=== PATIENT | female | born 1950 | race Caucasian/White ===

== ENCOUNTER 2021-07-12 13:24 | Inpatient (IN) | payer MEDICARE ==
[~2021-07-12] VITALS: Ht 167.6 cm; Wt 67.1 kg
--- NOTE | 2021-07-12 13:54 | NUR ---
[place], from [facility], sent by PMD due to PNA and 02 desaturation 93% on room air. PT AAOX3. RR EVEN & UNLABORED. PT SEEN & EVAL'D BY DR. ZUÑIGA. PLACED ON ENGRAVER BLOCK. SR. PLACED ON 2L, O2 SAT 99%. WILL CONT TO MONITOR.
[2021-07-12 13:55] LABS: BASOPHILS # (AUTO) 0.1 K/uL (0.0-0.2); BASOPHILS % (AUTO) 0.9 % (0.0-2.0); EOSINOPHILS % (AUTO) 0.4 % (0.0-6.0); HEMATOCRIT 41 % (33-45); HEMOGLOBIN 13.6 g/dL (11.5-14.8); LYMPHOCYTES % (AUTO) 13.2 % (20.0-44.0); MEAN CORPUSCULAR HGB CONC 33 g/dl (31.0-36.0); MEAN CORPUSCULAR VOLUME 95 fL (82-100); MONOCYTES % (AUTO) 13.1 % (2.0-12.0); NEUTROPHILS # (AUTO) 5.7 K/uL (1.8-8.9); NEUTROPHILS % (AUTO) 72.4 % (43.0-81.0); PLATELET COUNT (AUTO) 256 K/uL (150-450); RED BLOOD CELL COUNT(AUTO) 4.35 MIL/uL (4.0-5.2); WHITE BLOOD COUNT (AUTO) 7.9 K/uL (4.3-11.0)
--- NOTE | 2021-07-12 14:00 | NUR ---
MOVE SHEET SUBMITTED.
[2021-07-12 14:02] LABS: CALCIUM, SERUM 8.9 mg/dL (8.5-10.1); CREATININE 0.4 mg/dL (0.6-1.3); POTASSIUM 4.8 mmol/L (3.5-5.1)
[2021-07-12 14:15] LABS: ALBUMIN 2.9 g/dL (3.4-5.0); BILIRUBIN,DIRECT 0.1 mg/dL (0.0-0.2); BILIRUBIN,TOTAL 0.5 mg/dL (0.2-1.0); TOTAL PROTEIN, SERUM 6.1 g/dL (6.4-8.2)
[2021-07-12] MEDS ORDERED: CEFEPIME 1 GM in IV D5W 50 ML IV ONE (15:00)
[2021-07-12] MEDS ORDERED: VANCOMYCIN 1 GM in IV D5W 250 ML IV ONE (15:00)
--- NOTE | 2021-07-12 15:13 | NUR ---
[facility] CALLED ANAESTHESIOLOGIST PAGED.
[2021-07-12 15:31] LABS: BILIRUBIN,URINE Negative (NEGATIVE); COLOR,URINE YELLOW (YELLOW); LEUKOCYTE ESTERASE ,URINE Large (NEGATIVE); NITRITE, URINE Positive (NEGATIVE); PROTEIN,URINE Trace mg/dl (NEGATIVE); UGLUCOSE Negative (NEGATIVE)
--- NOTE | 2021-07-12 15:33 | NUR ---
room 110
--- NOTE | 2021-07-12 16:26 | NUR ---
PT EYES CLOSED BUT EASILY AWAKEN WITH VERBAL STIMULI. DENIES CP, SOB, DIZZINESS, N/V, ABD PAIN OR ANY OTHER DISCOMFORT AT THIS TIME. ON TELE, SR. WILL CONT TO MONITOR.
[2021-07-12] MEDS ORDERED: IV NS 0.9% 1,000 ML IV ONE (17:00)
[2021-07-12 17:03] LABS: BACTERIA,URINE 4+ /HPF (None Seen); RBC,URINE 21-50 /HPF (0-2); SQUAMOUS EPITHELIAL CELL,UR 0-2 /HPF (None Seen); WBC,URINE 81-100 /HPF (0-3)
--- NOTE | 2021-07-12 17:40 | NUR ---
REPORT GIVEN TO DANA CM FOR REED.
[2021-07-12] MEDS ORDERED: ONDANSETRON HCL/PF 4 MG/2 ML VIAL IVP PRN (18:00)
[2021-07-12] MEDS ORDERED: ACETAMINOPHEN 325 MG TABLET PO PRN (18:00)
[2021-07-12] MEDS ORDERED: IV NS 0.9% 1,000 ML IV PRN (18:00)
[2021-07-12] MEDS ORDERED: IPRATROPIUM NEB FS 0.5 MG/2.5 ML AMPUL.NEB IH PRN (19:00)
[2021-07-12 19:01] VITALS: BP 130/70
--- NOTE | 2021-07-12 19:43 | NUR ---
RN CLOSING NOTE PATIENT IN BED, AWAKE, EATING DINER. RECEIVED ON THE FLOOR FROM THE ER AT 181. PATIENT ON 2L O2 NC WITH NO SIGNS OF LABORED BREATHING AT THIS TIME. L WRIST IV IN PLACE AND RUNNING NS. BED LOCKED AND IN LOWEST POSITION, 3 SIDE RAILS UP, CALL LIGHT WITHIN REACH. WILL ENDORSE TO CHIEF OF FIELD OPERATIONS NURSE
--- NOTE | 2021-07-12 19:50 | NUR ---
RN NOTE RECEIVED PATIENT IN BED ALERT AND ORIENTED X4, ABLE TO MAKE NEEDS KNOWN. ON O2 2L VIA NASAL CANNULA, NO S/S OF RESPIRATORY DISTRESS. SINUS RHYTHM ON TELE MONITOR. SKIN IS CLEAN AND INTACT. IV ACCESS ON LEFT WRIST #20 RUNNING NS @ 50ML/HR. NO S/S OF INFILTRATION. BED LOCKED AND IN LOWEST POSITION. CALL LIGHT WITHIN REACH. ALL NEEDS ANTICIPATED.
[2021-07-12 20:00] VITALS: BP 108/62
--- NOTE | 2021-07-12 20:35 | NUR ---
RN NOTE PATIENT COMPLAINING OF SEVERE CHRONIC NECK PAIN, INFORMED AVTAR SAAVEDRA WITH NEW ORDERS FOR IBUPROFEN 600MG Q6H PRN NOTED AND CARRIED OUT.
[2021-07-12 20:49] LABS: C-REACTIVE PROTEIN 0.7 mg/dL (0.0-0.9)
[2021-07-12] MEDS: IBUPROFEN 600 MG TABLET PO PRN (20:49)
[2021-07-12] MEDS: ENOXAPARIN SODIUM 40 MG/0.4 ML DISP.SYRIN SQ SCH (20:50)
[2021-07-12] MEDS: ZOSYN IVPB 3.375 G in IV D5W 50ml IV SCH (23:15)
[2021-07-13] VITALS (7 sets, daily range): BP systolic 97–121; BP diastolic 55–63
[2021-07-13] MEDS: ZOSYN IVPB 3.375 G in IV D5W 50ml IV SCH ×3 (05:01→17:21)
[2021-07-13 05:53] LABS: BASOPHILS % (AUTO) 0.5 % (0.0-2.0); EOSINOPHILS % (AUTO) 1.6 % (0.0-6.0); HEMATOCRIT 37 % (33-45); HEMOGLOBIN 12.4 g/dL (11.5-14.8); LYMPHOCYTES # (AUTO) 1.5 K/uL (0.8-4.8); LYMPHOCYTES % (AUTO) 25.7 % (20.0-44.0); MEAN CORPUSCULAR HGB CONC 34 g/dl (31.0-36.0); MEAN CORPUSCULAR VOLUME 95 fL (82-100); MONOCYTES # (AUTO) 0.9 K/uL (0.1-1.30); MONOCYTES % (AUTO) 16.3 % (2.0-12.0); NEUTROPHILS # (AUTO) 3.2 K/uL (1.8-8.9); NEUTROPHILS % (AUTO) 55.9 % (43.0-81.0); PLATELET COUNT (AUTO) 227 K/uL (150-450); RED BLOOD CELL COUNT(AUTO) 3.88 MIL/uL (4.0-5.2); WHITE BLOOD COUNT (AUTO) 5.8 K/uL (4.3-11.0)
[2021-07-13 06:34] LABS: CALCIUM, SERUM 8.6 mg/dL (8.5-10.1); CREATININE 0.4 mg/dL (0.6-1.3); MAGNESIUM 1.7 mg/dL (1.8-2.4); PHOSPHORUS 3.5 mg/dL (2.5-4.9); POTASSIUM 3.9 mmol/L (3.5-5.1)
--- NOTE | 2021-07-13 06:50 | NUR ---
RN NOTE PATIENT RESTING IN BED. ON O2 2L VIA NASAL CANNULA, NO SOB NOTED. SINUS RHYTHM ON TELE MONITOR. IV ACCESS ON LEFT WRIST #20 RUNNING NS @ 50ML/HR. NO S/S OF INFILTRATION. TURNED AND REPOSITIONED. KEPT CLEAN AND DRY. BED LOCKED AND IN LOWEST POSITION. CALL LIGHT WITHIN REACH. WILL ENDORSE TO AM SHIFT.
--- NOTE | 2021-07-13 07:34 | NUR ---
NURSE OPENING NOTE PATIENT IS COMFORTABLE AND IN STABLE CONDITION. ON 2L OF OXYGEN SATING @99%. A/OX4. SINUS RHYTHM. BED BOUND. PATIENT IS DNR/DNI. AWAITING PULMONARY CONSULT. WILL FOLLOW-UP WITH LAB. SAFETY MEASURE IN PLACE. BED ON THE LOWEST POSITION WITH HOB ELEVATED AND 3 SIDE RAIL UP. WILL CONTINUE TO MONITOR.
[2021-07-13 07:36] LABS: EOSINOPHILS % (MANUAL) 4 % (0-4); LYMPHOCYTES % (MANUAL) 32 % (16-48); MONOCYTES % (MANUAL) 13 % (0-11.0); NEUTROPHILS % (MANUAL) 51 (42-76)
[2021-07-13] MEDS ORDERED: NA P133E RC (07:59)
[2021-07-13] MEDS ORDERED: CRAN425C6 PO (07:59)
[2021-07-13] MEDS ORDERED: METO25TA20 PO (07:59)
[2021-07-13] MEDS ORDERED: MAGN400O6 PO (07:59)
[2021-07-13] MEDS ORDERED: SIMV10TA98 PO (07:59)
[2021-07-13] MEDS ORDERED: TRAZ-182 PO (07:59)
[2021-07-13] MEDS ORDERED: DIVA250T4 PO (07:59)
[2021-07-13] MEDS ORDERED: RISP0.2515 PO (07:59)
[2021-07-13] MEDS ORDERED: IBUP-1953 PO (07:59)
[2021-07-13] MEDS ORDERED: PANT40TA2 PO (07:59)
[2021-07-13] MEDS ORDERED: BISA10SU11 RC (07:59)
[2021-07-13] MEDS ORDERED: ALBU8.5H8 IH (07:59)
[2021-07-13] MEDS ORDERED: ASPI-1169 PO (07:59)
[2021-07-13] MEDS ORDERED: DIVA500T2 PO (07:59)
[2021-07-13] MEDS ORDERED: METH-649 PO (07:59)
[2021-07-13] MEDS ORDERED: CHOL100062 PO (07:59)
[2021-07-13] MEDS ORDERED: ONDA4TAB5 PO (07:59)
[2021-07-13] MEDS ORDERED: DOCU-141 PO (07:59)
[2021-07-13] MEDS: IBUPROFEN 600 MG TABLET PO PRN (09:32)
[2021-07-13] MEDS: Magnesium 1GM/D5W 100ML PREMIX 100 ML IV SCH ×2 (09:32→10:39)
[2021-07-13] MEDS ORDERED: BISACODYL SUPP (10 MG) 10 MG/SUPP.RECT SUPP.RECT RC PRN (11:30)
[2021-07-13] MEDS ORDERED: NA PHOS,M-B/NA PHOS,DI-BA 1 EA ENEMA RC PRN (11:30)
[2021-07-13 11:32] LABS: ABG BASE EXCESS 1.4 mmol/L; ABG PH 7.468 (7.350-7.450); ABG PO2 55.5 mmHg (75.0-100.0); AaDO2 102.8 mmHg; COHb 1.7 % (0.5-1.5); MetHb 0.3 % (0.0-1.5); O2Hb 88.2 % (94.0-97.0); SITE, ABG Right Radial; VENT MODE, BG 1L NC
[2021-07-13] MEDS: PANTOPRAZOLE 40 MG TABLET.DR PO SCH (12:08)
[2021-07-13] MEDS: DOCUSATE SODIUM 100 MG CAPSULE PO SCH (12:08)
[2021-07-13] MEDS: risperiDONE 1 MG TABLET PO SCH ×2 (12:08→17:20)
[2021-07-13] MEDS: DIVALPROEX SODIUM 250 MG TABLET.DR PO SCH (12:08)
[2021-07-13] MEDS: CHOLECALCIFEROL 1,000 UNIT TABLET (VIT D3) PO SCH (12:08)
[2021-07-13] MEDS: VANCOMYCIN 1.25 GM in IV D5W 250 ML IV SCH (12:09)
--- NOTE | 2021-07-13 13:17 | NUR ---
NURSE NOTE THORACENTESIS WAS DONE. REMOVE 760ML. PATIENT IN STABLE CONDITION.
[2021-07-13] MEDS: METHOCARBAMOL (750MG) 750 MG TABLET PO SCH ×2 (13:34→21:31)
[2021-07-13] MEDS: METOPROLOL TARTRATE 25 MG TABLET PO SCH ×2 (13:34→21:00)
[2021-07-13] MEDS: ASPIRIN 81 MG TAB.CHEW PO SCH (17:20)
--- NOTE | 2021-07-13 18:46 | NUR ---
NURSE CLOSING NOTE. PATIENT MAINTAIN STABLE CONDITION THROUGHOUT SHIFT. CHEST X-RAY DONE. LEFT WRIST IV 20. IT'S POSITIONAL. CONTINUE TO MONITOR LABS. THORACENTESIS WAS DONE. 760ML WAS TAKEN OUT. PATIENT STABLE POST PROCEDURE. VANCOMYCIN WAS GIVEN. 2G OF MAGNESIUM WAS GIVEN. CHEST X-RAY POST THORACENTESIS DONE. THORACENTESIS SAMPLE WAS SENT TO LAB. SAFETY MEASURE IN PLACE. BED ON THE LOWEST POSITION WITH HOB ELEVATED 40 DEGREE. 3 SIDE RAIL UP. CALL LIGHT WITHIN REACH. WILL CONTINUE TO MONITOR AND GIVE REPORT OT ON COMING NURSE.
--- NOTE | 2021-07-13 20:00 | NUR ---
RN NOTE PATIENT ALERT AND ORIENTED X4, ABLE TO MAKE NEEDS KNOWN. ON O2 3L VIA NASAL CANNULA, RESPIRATIONS EVEN AND UNLABORED. NO SOB NOTED. DENIES ANY PAIN OR DISCOMFORT AT THIS TIME. IV ACCESS ON LEFT WRIST #20 PATENT AND INTACT, INFUSING NS @ 50ML/HR WELL. NO S/S OF INFILTRATION. BED LOCKED AND IN LOWEST POSITION. CALL LIGHT WITHIN REACH. ALL NEEDS ANTICIPATED.
[2021-07-13] MEDS: DIVALPROEX SODIUM 500 MG TABLET.DR PO SCH (21:31)
[2021-07-13] MEDS: SIMVASTATIN 10 MG TABLET PO SCH (21:31)
[2021-07-13] MEDS: TRAZODONE 50 MG TABLET PO SCH (21:31)
[2021-07-13] MEDS: ENOXAPARIN SODIUM 40 MG/0.4 ML DISP.SYRIN SQ SCH (21:34)
--- NOTE | 2021-07-13 21:35 | NUR ---
RN NOTE NOTIFIED JAMIE LÓPEZ BLOOD PRESSURE 104/59, HR 85 WITH ORDERS TO HOLD LOPRESSOR 25MG DOSE.
[2021-07-14] VITALS: BP 96/56
[2021-07-14] MEDS: ZOSYN IVPB 3.375 G in IV D5W 50ml IV SCH ×4 (00:02→17:05)
[2021-07-14] MEDS: VANCOMYCIN 1.25 GM in IV D5W 250 ML IV SCH ×2 (03:30→22:18)
[2021-07-14 04:00] VITALS: BP 98/54
[2021-07-14] MEDS: METOPROLOL TARTRATE 25 MG TABLET PO SCH ×3 (05:00→21:36)
[2021-07-14] MEDS: METHOCARBAMOL (750MG) 750 MG TABLET PO SCH ×3 (05:31→21:36)
--- NOTE | 2021-07-14 06:52 | NUR ---
RN NOTE PATIENT ALERT AND ORIENTED X4. ON O2 3L VIA NASAL CANNULA, NO SOB NOTED. DENIES ANY PAIN OR DISCOMFORT AT THIS TIME. IV ACCESS ON LEFT WRIST #20 PATENT AND INTACT, INFUSING NS @ 50ML/HR WELL. NO S/S OF INFILTRATION. KEPT CLEAN AND DRY. BED LOCKED AND IN LOWEST POSITION. CALL LIGHT WITHIN REACH. WILL ENDORSE TO AM SHIFT.
[2021-07-14 06:59] LABS: BASOPHILS % (AUTO) 0.8 % (0.0-2.0); EOSINOPHILS % (AUTO) 2.9 % (0.0-6.0); HEMATOCRIT 35 % (33-45); HEMOGLOBIN 11.5 g/dL (11.5-14.8); LYMPHOCYTES # (AUTO) 1.6 K/uL (0.8-4.8); LYMPHOCYTES % (AUTO) 32.7 % (20.0-44.0); MEAN CORPUSCULAR HGB CONC 33 g/dl (31.0-36.0); MEAN CORPUSCULAR VOLUME 95 fL (82-100); MONOCYTES # (AUTO) 0.8 K/uL (0.1-1.30); MONOCYTES % (AUTO) 16.9 % (2.0-12.0); NEUTROPHILS # (AUTO) 2.2 K/uL (1.8-8.9); NEUTROPHILS % (AUTO) 46.7 % (43.0-81.0); PLATELET COUNT (AUTO) 245 K/uL (150-450); RED BLOOD CELL COUNT(AUTO) 3.65 MIL/uL (4.0-5.2); WHITE BLOOD COUNT (AUTO) 4.8 K/uL (4.3-11.0)
[2021-07-14 07:16] LABS: CALCIUM, SERUM 8.3 mg/dL (8.5-10.1); CREATININE 0.3 mg/dL (0.6-1.3); MAGNESIUM 1.8 mg/dL (1.8-2.4); PHOSPHORUS 3.7 mg/dL (2.5-4.9); POTASSIUM 3.5 mmol/L (3.5-5.1)
--- NOTE | 2021-07-14 07:28 | NUR ---
RN OPENING NOTES; RECEIVED PT SLEEPING IN SUPINE POS. PT A/OX4. NO SOB OR DISTRESS NOTED. PT ON NC AT 3L TOLERATING WELL. NO C/O PAIN AT THIS TIME. ALL SAFETY MEASURES RENDERED, BED LOCKED, IN LOWEST POS. WITH CALL LIGHT WITHIN REACH. WILL CONTINUE TO MONITOR.
[2021-07-14 08:00] VITALS: BP 108/62
[2021-07-14] MEDS: risperiDONE 1 MG TABLET PO SCH ×2 (08:03→16:05)
[2021-07-14] MEDS: CHOLECALCIFEROL 1,000 UNIT TABLET (VIT D3) PO SCH (08:03)
[2021-07-14] MEDS: PANTOPRAZOLE 40 MG TABLET.DR PO SCH (08:03)
[2021-07-14] MEDS: DIVALPROEX SODIUM 250 MG TABLET.DR PO SCH (08:03)
[2021-07-14] MEDS: DOCUSATE SODIUM 100 MG CAPSULE PO SCH (08:03)
[2021-07-14 10:10] LABS: EOSINOPHILS % (MANUAL) 4 % (0-4); LYMPHOCYTES % (MANUAL) 34 % (16-48); MONOCYTES % (MANUAL) 18 % (0-11.0); NEUTROPHILS % (MANUAL) 44 (42-76)
[2021-07-14 12:00] VITALS: BP 108/62
[2021-07-14] MEDS: ASPIRIN 81 MG TAB.CHEW PO SCH (17:05)
--- NOTE | 2021-07-14 18:12 | NUR ---
RN CLOSING NOTES; PT A/OX4, NO SOB NOTED, PT SAT AT 96%-98% ON 02 3L VIA NASAL CANULA. ABT GIVEN AND TOLERATED WELL. PT HAS NO C/O PAIN AT THIS TIME. ALL MEDICATIONS GIVEN ORDERED. PT KEPT CLEAN, DRY, AND COMFORTABLE. NO SIGNIFICANT CHANGES TO PT HEALTH DURING SHIFT. SAFETY MEASURES RENDERED, BED IN LOWEST POS. LOCKED, WITH CALL LIGHT WITHIN REACH. ENDORSED TO GRADE CHECKER RN IN STABLE CONDITION.
--- NOTE | 2021-07-14 19:30 | NUR ---
RN OPENING NOTES: RECEIVED PT A/OX3-4 IN BED IN NO S/SX OF ACUTE DISTRESS AT THIS TIME. NO SOB NOTED. PATIENT'S BREATHING IS EVEN AND UNLABORED. PATIENT IS ON 3L OF OXYGEN VIA NC; TOLERATING WELL. PT ON MS STATUS. PATIENT ON PUREED DIET; TOLERATES WELL. NOTED IV SITE L WRIST ; NON PATENT AND NON FLUSHING WELL; WILL CHANGE LINE A INDICATED. SAFETY MEASURES HAVE BEEN PROVIDED AND IMPLEMENTED. PATIENT BED ALARM IS ON. HEAD OF BED ELEVATED. BED IS LOCKED, IN LOWEST POSITION AND SIDE RAILS UP. CALL LIGHT WITHIN REACH OF THE PATIENT. APPLICABLE ISOLATION PRECAUTIONS IN PLACE. WILL CONTINUE TO MONITOR AND REASSESS FOR ANY CHANGES AND WILL CARRY OUT ANY ONGOING AND ACTIVE MD ORDER.
[2021-07-14 20:00] VITALS: BP 100/56
--- NOTE | 2021-07-14 21:00 | NUR ---
RN NOTES FACILITATED INSERTION OF ADDITIONAL IV LINE/ACCESS @ L UPPER ARM G#22 AND R HAND #22; BOTH SALINE LOCK, SECURED, INTACT AND FLUSHING WELL.PREVIOUS IV LINE @ L WRIST NON PATENT (REMOVED) TC OPERATOR MADE AWARE.
[2021-07-14] MEDS: TRAZODONE 50 MG TABLET PO SCH (21:36)
[2021-07-14] MEDS: DIVALPROEX SODIUM 500 MG TABLET.DR PO SCH (21:36)
[2021-07-14] MEDS: ENOXAPARIN SODIUM 40 MG/0.4 ML DISP.SYRIN SQ SCH (21:37)
[2021-07-14] MEDS: SIMVASTATIN 10 MG TABLET PO SCH (22:18)
--- NOTE | 2021-07-15 | NUR ---
RN NOTES PATIENT REMAINED TO BE IN NO SIGNS OF ACUTE RESPIRATORY DISTRESS ,WILL CONTINUE TO MONITOR AND REASSESS FOR ANY CHANGES THROUGHOUT THE SHIFT.
[2021-07-15] MEDS: ZOSYN IVPB 3.375 G in IV D5W 50ml IV SCH ×4 (00:01→17:16)
[2021-07-15 04:00] VITALS: BP 92/50
--- NOTE | 2021-07-15 04:00 | NUR ---
RN NOTES NO NOTED CHANGES IN PATIENT CONDITION AT THIS TIME; PATIENT VITALS STABLE, NO SIGNS OF ACUTE RESPIRATORY DISTRESS. AM PATIENT CARE RENDERED.WILL CONTINUE TO MONITOR AND REASSESS FOR ANY CHANGES THROUGHOUT THE SHIFT.
[2021-07-15] MEDS: METOPROLOL TARTRATE 25 MG TABLET PO SCH ×3 (05:00→20:34)
[2021-07-15] MEDS: METHOCARBAMOL (750MG) 750 MG TABLET PO SCH ×3 (05:01→21:10)
--- NOTE | 2021-07-15 06:41 | NUR ---
RN CLOSING NOTE: PATIENT REMAINS IN ROOM IN NO SIGNS OF RESPIRATORY DISTRESS, PATIENT STILL ON 2L OF 02 VIA NC;TOLERATING WELL SATURATING @ >95% SP02. SAFETY MEASURES IMPLEMENTED, BED IN LOWEST POSITION, LOCKED, SIDE RAILS UP, CALL LIGHT WITHIN REACH.ALL NEEDS AND ORDERS ADDRESSED DURING THE SHIFT. IV ACCESS MAINTAINED INTACT, SECURED AND FLUSHING WELL. ALL DUE MEDS GIVEN ORDERED & SCHEDULED ; PATIENT TOLERATED WELL. PATIENT KEPT CLEAN AND COMFORTABLE WITHIN THE SHIFT. PATIENT ENDORSED TO INCOMING SHIFT RN WITH STABLE VITAL SIGN AND FOR CONTINUITY OF CARE.
--- NOTE | 2021-07-15 07:20 | NUR ---
RECEIVED PATIENT ASLEEP, EASY TO AROUSE, ABLE TO SPEAK AND MAKE NEEDS KNOWN, VERY WEAK, IV L UPPER ARM G#22 AND R HAND #22; BOTH SALINE LOCK, SECURED, BOTH SITES INTACT , FLUSHING PATENT, PO MEDICATIONS GIVEN CRUSHED WITH APPLE SAUCE PATIENT COMPLIANT WITH TAKING AND NO ASPIRATIONS NOTED, REPOSITIONED AND MADE COMFORTABLE, LIGHTS DIMMED FOR COMFORT AND TV TURNED TO SILENT TO PROMOTE A RELAXING ATMOSPHERE , CALL LIGHT IN REACH AND PATIENT ABLE TO USE WHEN IN NEED OF HELP OR SOMETHING.
[2021-07-15 07:38] LABS: CALCIUM, SERUM 8.5 mg/dL (8.5-10.1); CREATININE 0.4 mg/dL (0.6-1.3); POTASSIUM 3.4 mmol/L (3.5-5.1)
[2021-07-15 07:44] LABS: BASOPHILS % (AUTO) 0.5 % (0.0-2.0); EOSINOPHILS % (AUTO) 2.3 % (0.0-6.0); HEMATOCRIT 35 % (33-45); HEMOGLOBIN 11.7 g/dL (11.5-14.8); LYMPHOCYTES # (AUTO) 1.6 K/uL (0.8-4.8); LYMPHOCYTES % (AUTO) 30.6 % (20.0-44.0); MEAN CORPUSCULAR HGB CONC 34 g/dl (31.0-36.0); MEAN CORPUSCULAR VOLUME 95 fL (82-100); MONOCYTES % (AUTO) 18.8 % (2.0-12.0); NEUTROPHILS # (AUTO) 2.4 K/uL (1.8-8.9); NEUTROPHILS % (AUTO) 47.8 % (43.0-81.0); PLATELET COUNT (AUTO) 223 K/uL (150-450); RED BLOOD CELL COUNT(AUTO) 3.66 MIL/uL (4.0-5.2); WHITE BLOOD COUNT (AUTO) 5.1 K/uL (4.3-11.0)
[2021-07-15] MEDS: DIVALPROEX SODIUM 250 MG TABLET.DR PO SCH (09:00)
[2021-07-15 09:42] LABS: EOSINOPHILS % (MANUAL) 3 % (0-4); LYMPHOCYTES % (MANUAL) 34 % (16-48); MONOCYTES % (MANUAL) 14 % (0-11.0); NEUTROPHILS % (MANUAL) 49 (42-76)
[2021-07-15] MEDS: risperiDONE 1 MG TABLET PO SCH ×2 (10:19→17:16)
[2021-07-15] MEDS: CHOLECALCIFEROL 1,000 UNIT TABLET (VIT D3) PO SCH (10:19)
[2021-07-15] MEDS: DIVALPROEX SODIUM 500 MG TABLET.DR PO SCH (10:20)
[2021-07-15] MEDS: PANTOPRAZOLE 40 MG TABLET.DR PO SCH (10:20)
[2021-07-15] MEDS: DOCUSATE SODIUM 100 MG CAPSULE PO SCH (10:20)
[2021-07-15] MEDS ORDERED: VANCOMYCIN 1 GM in IV D5W 250ml IV SCH (11:00)
[2021-07-15] MEDS ORDERED: POTASSIUM CHLORIDE 20 MEQ TAB.PRT.SR PO ONE (11:00)
--- NOTE | 2021-07-15 14:16 | NUR ---
IV MEDICATIONS GIVEN, NO C/O PAIN , NO ADVERSE SIDE EFFECTS NOTED, TOLERATING MEDICATIONS WELL, IV PATENT FLUSHING WELL, REPOSITIONED FOR COMFORT, ABLE TO MAKE NEEDS KNOWN AND USED THE CALL LIGHT OFTEN TO REQUEST WANTS AND NEEDS, NO SIGNIFICANT CHANGES NOTED, CALL LIGHT IN REACH WILL CONTINUE TO MONITOR .
[2021-07-15 16:12] VITALS: BP 96/58
[2021-07-15] MEDS: ASPIRIN 81 MG TAB.CHEW PO SCH (17:17)
--- NOTE | 2021-07-15 19:40 | NUR ---
RN NOTE PT RECEIVED IN BED. PT IS ON 2L OF VIA NC SHOWING NO S/S OF RESP DISTRESS. BREATHING EVEN AND UNLABORED. A/OX3-4. SKIN INTACT. IV ACCESS NOTED ON RIGHT HAND #22 AND LEFT UPPER ARM MIDLINE #22. LINES FLUSHED, PATENT, AND INTACT WITH NO SIGNS OR SYMPTOMS OF INFILTRATION. ALL SAFETY MEASURES IMPLEMENTED. CALL LIGHT WITHIN REACH. BED ALARM ON. BED LOCKED AND IN LOWEST POSITION. WILL CONTINUE TO MONITOR AND ASSESS FOR ANY CHANGES THROUGHOUT THE SHIFT.
[2021-07-15 20:00] VITALS: BP 100/51
--- NOTE | 2021-07-15 20:34 | NUR ---
RN NOTE SPOKE WITH DR. BENNETT ABOUT PATIENT LOW BP. DR. BENNETT ORDERED TO HOLD BOTH LOPRESSOR AND DESYREL. ORDER NOTED AND CARRIED OUT.
[2021-07-15] MEDS: TRAZODONE 50 MG TABLET PO SCH (21:07)
[2021-07-15] MEDS: ENOXAPARIN SODIUM 40 MG/0.4 ML DISP.SYRIN SQ SCH (21:10)
[2021-07-15] MEDS: SIMVASTATIN 10 MG TABLET PO SCH (21:10)
[2021-07-16] MEDS: ZOSYN IVPB 3.375 G in IV D5W 50ml IV SCH ×2 (00:05→05:12)
[2021-07-16 04:00] VITALS: BP 96/53
[2021-07-16] MEDS: METOPROLOL TARTRATE 25 MG TABLET PO SCH ×3 (05:00→21:00)
[2021-07-16] MEDS: METHOCARBAMOL (750MG) 750 MG TABLET PO SCH ×3 (05:12→21:13)
--- NOTE | 2021-07-16 06:46 | NUR ---
RN NOTES NO CHANGES IN PT CONDITION DURING SHIFT. PT IS ON 2L OF VIA NC ROOM AIR SHOWING NO S/S OF RESP DISTRESS. BREATHING EVEN AND UNLABORED. IV LINE ON RIGHT HAND #22 AND LEFT UPPER ARM ML #22. LINES PATENT AND INTACT. ALL DUE MEDS GIVEN ORDERED. PT KEPT CLEAN AND COMFORTABLE. ALL SAFETY MEASURES IMPLEMENTED. CALL LIGHT WITHIN REACH. BED ALARM ON. BED LOCKED AND IN LOWEST POSITION. WILL ENDORSE TO MORNING SHIFT RN FOR REED.
--- NOTE | 2021-07-16 07:30 | NUR ---
MOBILE PLANT OPERATORS OPENING NOTE PT SLEEPING IN BED SEMIFOWLER'S BREATHING NC 2L, SPO2 98%, NO S/S OF RESP DISTRESS. PT IS A/Ox3/3, DENIES PAIN AT THIS MOMENT. PT BEDSIDE SWALLOW EVAL PASSED. PT HAS ZOHRA MIDLINE AND RT HAND #22 BOTH FLUSHED, INTACT AND PATENT, NO S/S OF INFILTRATION/INFECTION. ALL PT SAFETY PRECAUTIONS IN PLACE, WILL CONT TO MONITOR
[2021-07-16 07:32] LABS: CALCIUM, SERUM 8.2 mg/dL (8.5-10.1); CREATININE 0.3 mg/dL (0.6-1.3); POTASSIUM 3.7 mmol/L (3.5-5.1)
[2021-07-16 08:00] VITALS: BP 102/66
[2021-07-16] MEDS: risperiDONE 1 MG TABLET PO SCH ×2 (08:50→17:07)
[2021-07-16] MEDS: CHOLECALCIFEROL 1,000 UNIT TABLET (VIT D3) PO SCH (08:50)
[2021-07-16] MEDS: PANTOPRAZOLE 40 MG TABLET.DR PO SCH (08:50)
[2021-07-16] MEDS: DOCUSATE SODIUM 100 MG CAPSULE PO SCH (08:50)
[2021-07-16] MEDS: DIVALPROEX SODIUM 250 MG TABLET.DR PO SCH (08:50)
[2021-07-16 16:00] VITALS: BP 97/61
[2021-07-16] MEDS: ASPIRIN 81 MG TAB.CHEW PO SCH (17:07)
--- NOTE | 2021-07-16 19:05 | NUR ---
EXPERIMENTAL PREFLIGHT MECHANIC CLOSING NOTE NO CHANGES TO PT DURING SHIFT. PT TOLERATING 2L NC WELL, NO RESP DISTRESS OR SOB. PT WAS ABLE TO SPEAK TO TODAY PER 'S WISH. ALL PT SAFETY PRECAUTIONS IN PLACE, REED ENDORSED TO ONCOMING RN
--- NOTE | 2021-07-16 19:30 | NUR ---
MS RN OPENING NOTE PATIENT RESTING IN BED, ALERT/ORIENTED X 3, PT ABLE TO MAKE NEEDS KNOWN. PT STABLE ON 2L OF OXYGEN VIA NC. NO S/S OF DISTRESS OR SOB NOTED, BREATHING EVEN AND UNLABORED. ZOHRA MIDLINE AND RIGHT HAND IV ACCESS INTACT AND FLUSHING WELL, BOTH SALINE LOCKED. SAFETY MEASURES IN PLACE: CALL LIGHT WITHIN REACH, BED LOCKED IN LOW POSITION, SIDE RAILS UP X 3, BED ALARM ON. WILL CONTINUE TO MONITOR PATIENT
[2021-07-16 20:00] VITALS: BP 91/50
--- NOTE | 2021-07-16 21:00 | NUR ---
MS RN NOTE CONTACTED DR. BENNETT REGARDING PATIENT'S LOW BP OF 91/50, HR: 92. ORDERS TO HOLD LOPRESSOR AND DESYREL. MEDICATIONS HELD. WILL CONTINUE TO MONITOR PATIENT
[2021-07-16] MEDS: TRAZODONE 50 MG TABLET PO SCH (21:07)
[2021-07-16] MEDS: CEFEPIME 1 GM in IV D5W 50 ML IV SCH (21:13)
[2021-07-16] MEDS: ENOXAPARIN SODIUM 40 MG/0.4 ML DISP.SYRIN SQ SCH (21:15)
[2021-07-16] MEDS: SIMVASTATIN 10 MG TABLET PO SCH (21:16)
[2021-07-16] MEDS: DIVALPROEX SODIUM 500 MG TABLET.DR PO SCH (22:16)
[2021-07-17 04:00] VITALS: BP 92/56
[2021-07-17] MEDS: METOPROLOL TARTRATE 25 MG TABLET PO SCH ×3 (05:00→21:00)
[2021-07-17] MEDS: METHOCARBAMOL (750MG) 750 MG TABLET PO SCH ×3 (05:07→22:55)
--- NOTE | 2021-07-17 05:10 | NUR ---
MS RN NOTE PATIENT'S BP 92/56, HR: 70. HELD LOPRESSOR D/T DECREASED BP. WILL CONTINUE TO MONITOR
--- NOTE | 2021-07-17 06:26 | NUR ---
MS RN CLOSING NOTE PATIENT SLEEPING IN BED, APPEARS COMFORTABLE AND NOT IN ANY DISTRESS, NO SIGNIFICANT CHANGES THROUGHOUT SHIFT. PT STABLE ON 2L OF OXYGEN VIA NC, NO S/S OF DISTRESS OR SOB NOTED, BREATHING EVEN AND UNLABORED. ZOHRA MIDLINE AND RIGHT HAND IV ACCESS INTACT AND BOTH SALINE LOCKED. MEDICATIONS GIVEN ORDERED, PT NEEDS MET THROUGHOUT SHIFT. SAFETY MEASURES IN PLACE: CALL LIGHT WITHIN REACH, BED LOCKED IN LOW POSITION, SIDE RAILS UP X 3, BED ALARM ON. WILL ENDORSE TO DAY SHIFT NURSE FOR CONTINUITY OF CARE
[2021-07-17 07:20] LABS: CALCIUM, SERUM 8.7 mg/dL (8.5-10.1); CREATININE 0.3 mg/dL (0.6-1.3); POTASSIUM 4.1 mmol/L (3.5-5.1)
--- NOTE | 2021-07-17 07:35 | NUR ---
MS RN OPENING NOTE RECEIVED PATIENT RESTING IN BED, EASY TO AROUSE. A/O X3. STABLE ON 2L OXYGEN VIA NC. NO SOB NOTED. NO DISTRESS/DISCOMFORT NOTED. ZOHRA MIDLINE AND RIGHT HAND IV ACCESS INTACT AND FLUSHING WELL, BOTH SALINE LOCKED. SAFETY MEASURES IN PLACE. CALL LIGHT WITHIN REACH. WILL CONTINUE TO MONITOR.
[2021-07-17 07:58] VITALS: BP 119/68
[2021-07-17] MEDS: DOCUSATE SODIUM 100 MG CAPSULE PO SCH (08:35)
[2021-07-17] MEDS: CALCIUM CARB 600MG /VIT D 1 EACH TABLET PO SCH (08:35)
[2021-07-17] MEDS: CHOLECALCIFEROL 1,000 UNIT TABLET (VIT D3) PO SCH (08:35)
[2021-07-17] MEDS: PANTOPRAZOLE 40 MG TABLET.DR PO SCH (08:35)
[2021-07-17] MEDS: DIVALPROEX SODIUM 250 MG TABLET.DR PO SCH (08:35)
[2021-07-17] MEDS: risperiDONE 1 MG TABLET PO SCH ×2 (08:35→17:19)
[2021-07-17 12:23] VITALS: BP 115/71
[2021-07-17] MEDS: ASPIRIN 81 MG TAB.CHEW PO SCH (17:19)
--- NOTE | 2021-07-17 18:41 | NUR ---
MS RN CLOSING NOTES PATIENT CURRENTLY LYING IN BED, WATCHING TV. A/O X3. SLOW TO RESPOND. STABLE ON 2L OXYGEN VIA NC. NO SOB NOTED. NO DISTRESS/DISCOMFORT NOTED. ZOHRA MIDLINE AND RIGHT HAND IV ACCESS INTACT AND FLUSHING WELL, BOTH SALINE LOCKED. SAFETY MEASURES IN PLACE. CALL LIGHT WITHIN REACH. WILL ENDORSE TO PARTNER NURSE FOR REED.
[2021-07-17 20:00] VITALS: BP 101/69
[2021-07-17] MEDS: CEFEPIME 1 GM in IV D5W 50 ML IV SCH (22:53)
[2021-07-17] MEDS: DIVALPROEX SODIUM 500 MG TABLET.DR PO SCH (22:55)
[2021-07-17] MEDS: TRAZODONE 50 MG TABLET PO SCH (22:55)
[2021-07-17] MEDS: SIMVASTATIN 10 MG TABLET PO SCH (22:55)
[2021-07-17] MEDS: ENOXAPARIN SODIUM 40 MG/0.4 ML DISP.SYRIN SQ SCH (22:57)
[2021-07-18 04:00] VITALS: BP 92/56
--- NOTE | 2021-07-18 04:47 | NUR ---
RN notes Comfortably resting in place [id number]
--- NOTE | 2021-07-18 04:50 | NUR ---
RN notes Restingf comfortably in bed with no distress noted. Breathing even and unlabored. On 2lpm O2 via nasal cannula tolerating well. Vital signs wnl. Alert and oriented, able to verbally communicate needs. No complaint of pain or discomfort. No significant change of condition. Kept clean and dry. Will endorse to next shift for continuity of care.
[2021-07-18] MEDS: METHOCARBAMOL (750MG) 750 MG TABLET PO SCH ×3 (05:52→21:21)
[2021-07-18] MEDS: METOPROLOL TARTRATE 25 MG TABLET PO SCH ×3 (05:53→21:00)
--- NOTE | 2021-07-18 07:30 | NUR ---
MS RN OPENING NOTE RECEIVED PATIENT IN BED, A/O X 2-3. WITH PERIOD OF CONFUSION. STABLE ON 2L OXYGEN VIA NC, O2 SATURATION AT 100%. NO SOB NOTED. RESPIRATION UNLABORED. NO DISTRESS/DISCOMFORT NOTED. ZOHRA MIDLINE AND RIGHT HAND IV ACCESS INTACT AND FLUSHING WELL, BOTH SITES CLEAR. BEDREST, USES DIAPER, CARDIAC PUREED DIET. HOB ELEVATED. SAFETY MEASURES IN PLACE. CALL LIGHT WITHIN REACH. WILL CONTINUE TO MONITOR.
[2021-07-18 08:00] VITALS: BP 106/56
[2021-07-18] MEDS: PANTOPRAZOLE 40 MG TABLET.DR PO SCH (08:34)
[2021-07-18] MEDS: CHOLECALCIFEROL 1,000 UNIT TABLET (VIT D3) PO SCH (08:34)
[2021-07-18] MEDS: risperiDONE 1 MG TABLET PO SCH ×2 (08:34→17:04)
[2021-07-18] MEDS: CALCIUM CARB 600MG /VIT D 1 EACH TABLET PO SCH (08:34)
[2021-07-18] MEDS: DOCUSATE SODIUM 100 MG CAPSULE PO SCH (08:35)
[2021-07-18] MEDS: DIVALPROEX SODIUM 250 MG TABLET.DR PO SCH (08:35)
--- NOTE | 2021-07-18 09:30 | NUR ---
RN NOTES DUE MEDS GIVEN
[2021-07-18 11:52] LABS: CALCIUM, SERUM 8.5 mg/dL (8.5-10.1); CREATININE 0.3 mg/dL (0.6-1.3)
--- NOTE | 2021-07-18 13:45 | NUR ---
RN NOTES PATIENT FOR THORACENTESIS. WAITING FOR PT/INR/APTT RESULT. TELEPHONE CONSENT BY KIM OBTAINED.
[2021-07-18] MEDS: CEFTRIAXONE 1 G in IV D5W 50 ML IV SCH (14:49)
[2021-07-18 16:00] VITALS: BP 96/50
[2021-07-18] MEDS: ASPIRIN 81 MG TAB.CHEW PO SCH (17:05)
--- NOTE | 2021-07-18 18:45 | NUR ---
RN CLOSING NOTE PT IS LYING IN BED WITH HOB AT 40 DEGREES, A/O X 2-3. WITH PERIOD OF CONFUSION. STABLE ON 2L OXYGEN VIA NC, O2 SATURATION AT 100%. NO SOB NOTED. RESPIRATION UNLABORED. NO DISTRESS/DISCOMFORT NOTED. ZOHRA MIDLINE AND RIGHT HAND IV ACCESS INTACT AND FLUSHING WELL, BOTH SITES CLEAR. USG THORACENTESIS 07/19 FOR SMALL TO MODERATE PLEURAL EFFUSION. HOLD ALL BLOOD THINNERS TONIGHT. BEDREST, USES DIAPER, CARDIAC PUREED DIET. HOB ELEVATED. SAFETY MEASURES IN PLACE. CALL LIGHT WITHIN REACH. PT REMAINED STABLE THROUGHOUT SHIFT AND ALL NEEDS WERE MET. WILL ENDORSE TO TAPROOM ATTENDANT NURSE FOR REED.
--- NOTE | 2021-07-18 19:00 | NUR ---
MS RN OPENING NOTE RECEIVED PT IN BED, RESTING. ALERT WITH CONFUSION. PT IS ON 2L OXYGEN VIA NASAL CANULA, NO SOB OR RESPIRATORY DISTRESS NOTED, NO C/O PAIN. RESPIRATIONS EVEN AND UNLABORED, IV ACCESS NOTED IN RIGHT HAND G#22, LEFT UPPER ARM MIDLINE, INTACT, PATENT AND FLUSHING WELL. FALL AND SAFETY MEASURES IN PLACE AND MAINTAINED AT ALL TIMES. BED ALARM ON, BED IN LOW AND LOCKED POSITION, HOB ELEVATED TO SEMI FOWLERS POSITION, CALL LIGHT AND TABLE WITHIN REACH, SIDE RAILS UP X2. WILL CONTINUE TO MONITOR.
[2021-07-18 20:00] VITALS: BP 96/82
--- NOTE | 2021-07-18 20:02 | NUR ---
Consent and labs were not done @ 1225. Communicated with DANA Mcbride that they had to be done before procedure at ext. [phone]. Labs were finally completed @ around 14:30. Dr Morelos had communicated with me multiple times about coming for the procedure and that he was busy and finally informed me @1805 that it could be done tomorrow. Patient not in distress and amount of fluid is not gross. Informed DANA Mcbride about procedure being done tomorrow. Medications will be on hold until procedure is complete.
[2021-07-18] MEDS: ENOXAPARIN SODIUM 40 MG/0.4 ML DISP.SYRIN SQ SCH (21:00)
[2021-07-18] MEDS: DIVALPROEX SODIUM 500 MG TABLET.DR PO SCH (21:21)
[2021-07-18] MEDS: TRAZODONE 50 MG TABLET PO SCH (21:22)
[2021-07-18] MEDS: SIMVASTATIN 10 MG TABLET PO SCH (21:22)
[2021-07-19 04:00] VITALS: BP 117/67
[2021-07-19] MEDS: METOPROLOL TARTRATE 25 MG TABLET PO SCH ×3 (05:22→21:00)
[2021-07-19] MEDS: METHOCARBAMOL (750MG) 750 MG TABLET PO SCH ×3 (05:23→21:40)
--- NOTE | 2021-07-19 06:30 | NUR ---
RN CLOSING NOTE PT REMAINED STABLE THROUGHOUT SHIFT. WILL ENDORSE TO ONCOMING RN.
--- NOTE | 2021-07-19 07:30 | NUR ---
RN NOTES RECEIVED PT AWAKE/ALERT IN SEMI-FOWLERS POSITION. PT HAS A R HAND 22G AND L UPPER ARM 22G. PT SHOWING NO S/SX OF ACUTE RESPIRATORY DISTRESS. SAFETY MEASURES IN PLACE WITH BED IN LOWEST LOCKED POSITION, SIDE RAILS UP X3, AND CALL LIGHT WITHIN REACH.
[2021-07-19 08:00] VITALS: BP 111/60
[2021-07-19 08:06] LABS: CALCIUM, SERUM 8.9 mg/dL (8.5-10.1); CREATININE 0.4 mg/dL (0.6-1.3); POTASSIUM 4.2 mmol/L (3.5-5.1)
[2021-07-19] MEDS: DOCUSATE SODIUM 100 MG CAPSULE PO SCH (08:27)
[2021-07-19] MEDS: DIVALPROEX SODIUM 250 MG TABLET.DR PO SCH (08:27)
[2021-07-19] MEDS: risperiDONE 1 MG TABLET PO SCH ×2 (08:28→17:02)
[2021-07-19] MEDS: PANTOPRAZOLE 40 MG TABLET.DR PO SCH (08:28)
[2021-07-19] MEDS: CALCIUM CARB 600MG /VIT D 1 EACH TABLET PO SCH (08:28)
[2021-07-19] MEDS: CHOLECALCIFEROL 1,000 UNIT TABLET (VIT D3) PO SCH (08:28)
[2021-07-19 12:00] VITALS: BP 105/61
[2021-07-19] MEDS: IBUPROFEN 600 MG TABLET PO PRN (12:50)
--- NOTE | 2021-07-19 13:00 | NUR ---
RN NOTES PT RECEIVED RIGHT THORACENTESIS, 550ML DRAINED, AND TAKEN TO THE LAB PER SAWMILL HAND ORDER.
[2021-07-19] MEDS: CEFTRIAXONE 1 G in IV D5W 50 ML IV SCH (14:16)
--- NOTE | 2021-07-19 15:00 | NUR ---
CHEST X RAY SHOWS SMALL RIGHT APICAL PNEUMOTHORAX NOTED S/P THORACENTESIS, AVTAR BRIDGE LEVERMAN WAS NOTIFIED WILL DO CHEST X RAY IN AM 07/20/21
[2021-07-19 16:00] VITALS: BP 92/53
[2021-07-19] MEDS: ASPIRIN 81 MG TAB.CHEW PO SCH (17:02)
--- NOTE | 2021-07-19 18:50 | NUR ---
RN NOTES PT RESTING COMFORTABLY IN BED, LINEN CHANGED. PT HAS NO COMPLAINTS OF PAIN OR S/SX OF ACUTE RESPIRATORY DISTRESS. PT IS S/P THORACENTESIS. NO S/SX OF BLEEDING. SAFETY MEASURES IN PLACE WITH BED IN LOWEST LOCKED POSITION, CALL LIGHT WITHIN REACH, SIDE RAILS UP X3, AND ALL NEEDS ATTENDED AT THIS TIME.
--- NOTE | 2021-07-19 19:51 | NUR ---
MS RN NOTES PT RESTING COMFORTABLY IN BED. PT HAS NO COMPLAINTS OF PAIN OR S/SX OF ACUTE RESPIRATORY DISTRESS. PT IS S/P THORACENTESIS. NO S/SX OF BLEEDING. SAFETY MEASURES IN PLACE WITH BED IN LOWEST LOCKED POSITION, CALL LIGHT WITHIN REACH, SIDE RAILS UP X3, AND ALL NEEDS ATTENDED AT THIS TIME. WILL CONTINUE TO MONITOR.
[2021-07-19 20:56] VITALS: BP_SYST 102; BP_SYST 119; BP_DIAS 48; BP_DIAS 67
[2021-07-19] MEDS: SIMVASTATIN 10 MG TABLET PO SCH (21:40)
[2021-07-19] MEDS: DIVALPROEX SODIUM 500 MG TABLET.DR PO SCH (21:40)
[2021-07-19] MEDS: TRAZODONE 50 MG TABLET PO SCH (21:40)
[2021-07-19] MEDS: ENOXAPARIN SODIUM 40 MG/0.4 ML DISP.SYRIN SQ SCH (21:41)
[2021-07-19 22:35] VITALS: BP 102/67
[2021-07-20 00:17] VITALS: BP 102/67
[2021-07-20] MEDS: METOPROLOL TARTRATE 25 MG TABLET PO SCH ×2 (05:00→12:38)
[2021-07-20] MEDS: METHOCARBAMOL (750MG) 750 MG TABLET PO SCH ×2 (05:26→12:38)
--- NOTE | 2021-07-20 06:37 | NUR ---
RN NOTES PT RESTING COMFORTABLY IN BED. PT HAS NO COMPLAINTS OF PAIN OR S/SX OF ACUTE RESPIRATORY DISTRESS. PT IS S/P THORACENTESIS. NO S/SX OF BLEEDING. SAFETY MEASURES IN PLACE WITH BED IN LOWEST LOCKED POSITION, CALL LIGHT WITHIN REACH, SIDE RAILS UP X3, AND ALL NEEDS ATTENDED AT THIS TIME. WILL ENDORSE CARE TO DAY SHIFT NURSE.
--- NOTE | 2021-07-20 07:43 | NUR ---
RN NOTES RECEIVED PT ASLEEP IN BED IN SEMI FOWLERS POSITION. PT HAS A ZOHRA 22G SALINE LOCK. SAFETY MEASURES IN PLACE WITH BED IN LOWEST LOCKED POSITION, CALL LIGHT WITHIN REACH AND SIDE RAILS UP X3.
[2021-07-20] MEDS: PANTOPRAZOLE 40 MG TABLET.DR PO SCH (07:48)
[2021-07-20 08:00] VITALS: BP 94/56
[2021-07-20] MEDS: DIVALPROEX SODIUM 250 MG TABLET.DR PO SCH (09:15)
[2021-07-20] MEDS: DOCUSATE SODIUM 100 MG CAPSULE PO SCH (09:15)
[2021-07-20] MEDS: risperiDONE 1 MG TABLET PO SCH (09:15)
[2021-07-20] MEDS: CALCIUM CARB 600MG /VIT D 1 EACH TABLET PO SCH (09:15)
[2021-07-20] MEDS: CHOLECALCIFEROL 1,000 UNIT TABLET (VIT D3) PO SCH (09:15)
[2021-07-20 12:38] VITALS: BP 92/46
--- NOTE | 2021-07-20 13:14 | NUR ---
RN NOTES COVID-RAPID ANTIGEN TEST ORDERED, SPECIMEN COLLECTED AND BROUGHT TO THE LAB.
[2021-07-20] MEDS ORDERED: FURO-145 PO (13:22)
[2021-07-20] MEDS ORDERED: Calcium Carb 600MG /Vit D PO (13:22)
--- NOTE | 2021-07-20 17:00 | NUR ---
RN NOTE PT DISCHARGED TO [facility], REPORT GIVEN TO LETICIA. IV ACCESS REMOVED, BELONGINGS DOCUMENTED.
== END 2021-07-20 17:39 | DRG 177 ==
LOC: ER 13:29 → TELE1 15:35 → MEDSG1 07-14 08:40
PROVIDERS: ADMIT Nurse Practitioner Acute Care; ATTEND Nurse Practitioner Acute Care
PROC: 0W993ZZ Drainage of Right Pleural Cavity, Percutaneous Approach (ICD-10-PCS; principal; 2021-07-13)
DX: J15.6 Pneumonia due to other Gram-negative bacteria (principal); J96.01 Acute respiratory failure with hypoxia; N39.0 Urinary tract infection, site not specified; J90 Pleural effusion, not elsewhere classified; E44.0 Moderate protein-calorie malnutrition; D68.59 Other primary thrombophilia; J93.9 Pneumothorax, unspecified; J98.11 Atelectasis; G45.9 Transient cerebral ischemic attack, unspecified; Z20.822 Contact with and (suspected) exposure to COVID-19; Z86.73 Personal history of transient ischemic attack (TIA), and cerebral infarction without residual deficits; K21.9 Gastro-esophageal reflux disease without esophagitis; I10 Essential (primary) hypertension; Z68.28 Body mass index [BMI] 28.0-28.9, adult; G43.109 Migraine with aura, not intractable, without status migrainosus; F03.90 Unspecified dementia, unspecified severity, without behavioral disturbance, psychotic disturbance, mood disturbance, and anxiety; E78.5 Hyperlipidemia, unspecified; Z85.01 Personal history of malignant neoplasm of esophagus; F25.9 Schizoaffective disorder, unspecified; F32.A Depression, unspecified; F41.9 Anxiety disorder, unspecified; H52.4 Presbyopia; H26.9 Unspecified cataract; K44.9 Diaphragmatic hernia without obstruction or gangrene; Z88.6 Allergy status to analgesic agent; Z88.5 Allergy status to narcotic agent; Z88.2 Allergy status to sulfonamides; Z88.8 Allergy status to other drugs, medicaments and biological substances; Y95 Nosocomial condition; G40.909 Epilepsy, unspecified, not intractable, without status epilepticus; I70.0 Atherosclerosis of aorta; F09 Unspecified mental disorder due to known physiological condition
CPT/HCPCS: 36415; 36600; 71045-TC; 71250-TC; 80048-TC; 80061-TC; 80076-TC; 80202-TC; 81001; 82728-TC; 83605-TC; 83615-TC; 83735-TC; 83880; 84100-TC; 84155-TC; 84484-TC; 85025-TC; 85378-TC; 85610-TC; 85730-TC; 86140-TC; 87040-TC; 87070-TC; 87075-TC; 87081-TC; 87086-TC; 87102-TC; 87186-TC; 88108-TC; 88305-TC; 89051-TC; 93307-TC; C9803; G0378; J0692; J0696; J1650; J2543; J3370; J3475; J7030; J7060; U0003

== ENCOUNTER 2021-09-20 21:13 | Inpatient (IN) | payer MEDICARE, OTHER ==
[~2021-09-20] VITALS: Ht 170.2 cm; Wt 74.8 kg
[~2021-09-20 21:13] MED LIST: ALBU8.5H8 IH; ASPI-1169 PO; BISA10SU11 RC; CHOL100062 PO; CRAN425C6 PO; Calcium Carb 600MG /Vit D PO; DIVA250T4 PO; DIVA500T2 PO; DOCU-141 PO; FURO-145 PO; IBUP-1953 PO; MAGN400O6 PO; METH-649 PO; METO25TA20 PO; NA P133E RC; ONDA4TAB5 PO; PANT40TA2 PO; RISP0.2515 PO; SIMV10TA98 PO; TRAZ-182 PO
--- NOTE | 2021-09-20 22:13 | NUR ---
NIMESH FROM [place] FOR POOR PO INTAKE AND FEVER. PT EYES CLOSED, NON VERBAL. RR EVEN & UNLABORED. PT SEEN & EVAL'D BY DR. RODRIGUEZ. ON TELE, ST. WILL CONT TO MONITOR. COVID SWAB DONE & SENT TO LAB.
[2021-09-20] MEDS ORDERED: IV NS 0.9% 1,000 ML BAG IV ONE (22:30)
--- NOTE | 2021-09-20 22:30 | NUR ---
MRSA SWAB COLLECTED AND SENT TO LAB. PATIENT'S BELONGINGS LIST DONE.
[2021-09-20] MEDS ORDERED: CEFTRIAXONE 1GM BAG (ER ONLY) 1 GM/50 ML PIGGYBACK IV ONE (23:30)
[2021-09-20] MEDS ORDERED: AZITHROMYCIN 500 MG in IV D5W 250 ML IV ONE (23:30)
[2021-09-20] MEDS ORDERED: CEFTRIAXONE 1GM BAG (ER ONLY) 50 ML IV ONE (23:46)
[2021-09-20] MEDS ORDERED: AZITHROMYCIN 500 MG VIAL ONE (23:51)
[2021-09-21] MEDS ORDERED: ACETAMINOPHEN 325 MG TABLET PO PRN ×2 (00:30→08:00)
[2021-09-21] MEDS ORDERED: CEFEPIME 1 GM in IV D5W 50 ML IV SCH ×2 (00:30→08:00)
[2021-09-21] MEDS ORDERED: ONDANSETRON HCL/PF 4 MG/2 ML VIAL IVP PRN ×2 (00:30→08:00)
[2021-09-21] MEDS ORDERED: BISACODYL SUPP (10 MG) 10 MG/SUPP.RECT SUPP.RECT RC PRN ×2 (01:00→08:00)
[2021-09-21] MEDS ORDERED: ALBUTEROL SULFATE INH 18 GM HFA.AER.AD IH PRN ×2 (01:00→08:00)
[2021-09-21] MEDS ORDERED: ALBUTEROL FS 2.5 MG/0.5 ML VIAL.NEB NEB PRN ×2 (01:00→08:00)
[2021-09-21] MEDS ORDERED: IBUPROFEN 400 MG TABLET PO PRN ×2 (01:00→08:00)
[2021-09-21] MEDS ORDERED: IPRATROPIUM BROMIDE 14 GM INHALER (or 12.9 GM) IH PRN ×2 (01:00→08:00)
[2021-09-21 02:16] LABS: COLOR,URINE YELLOW (YELLOW)
[2021-09-21 02:17] LABS: BILIRUBIN,URINE 1+ (NEGATIVE); LEUKOCYTE ESTERASE ,URINE NEGATIVE (NEGATIVE); NITRITE, URINE NEGATIVE (NEGATIVE); PROTEIN,URINE TRACE mg/dl (NEGATIVE); UGLUCOSE NEGATIVE (NEGATIVE)
[2021-09-21 02:19] LABS: BACTERIA,URINE None seen /HPF (None Seen); SQUAMOUS EPITHELIAL CELL,UR Few /HPF (None Seen); WBC,URINE 0-2 /HPF (0-3)
[2021-09-21 03:06] LABS: HEMATOCRIT 41 % (33-45); HEMOGLOBIN 13.9 g/dL (11.5-14.8); MEAN CORPUSCULAR HGB CONC 34 g/dl (31.0-36.0); MEAN CORPUSCULAR VOLUME 93 fL (82-100); PLATELET COUNT (AUTO) 173 K/uL (150-450); RED BLOOD CELL COUNT(AUTO) 4.36 MIL/uL (4.0-5.2); WHITE BLOOD COUNT (AUTO) 5.1 K/uL (4.3-11.0)
[2021-09-21 03:07] LABS: BASOPHILS % (AUTO) 0.3 % (0.0-2.0); EOSINOPHILS % (AUTO) 0.1 % (0.0-6.0); LYMPHOCYTES # (AUTO) 0.2 K/uL (0.8-4.8); MONOCYTES # (AUTO) 0.5 K/uL (0.1-1.30); MONOCYTES % (AUTO) 9.3 % (2.0-12.0); NEUTROPHILS # (AUTO) 4.4 K/uL (1.8-8.9); NEUTROPHILS % (AUTO) 86.3 % (43.0-81.0)
[2021-09-21 03:12] LABS: CALCIUM, SERUM 8.7 mg/dL (8.5-10.1); CARBON DIOXIDE 27 mmol/L (21-32); CHLORIDE 97 mmol/L (98-107); GLUCOSE 150 mg/dL (74-106); POTASSIUM 3.9 mmol/L (3.5-5.1); SODIUM SERUM 134 mmol/L (136-145); UREA NITROGEN, BLOOD 19 mg/dL (7-18)
[2021-09-21 03:13] LABS: ALANINE AMINOTRANSFERASE 10 U/L (12-78); ALKALINE PHOSPHATASE 69 U/L (46-116); ASPARTATE AMINOTRANSFERASE 10 U/L (15-37); BILIRUBIN,DIRECT 0.2 mg/dL (0.0-0.2); BILIRUBIN,TOTAL 0.5 mg/dL (0.2-1.0); CREATININE 0.4 mg/dL (0.6-1.3); TOTAL PROTEIN, SERUM 6.6 g/dL (6.4-8.2)
[2021-09-21 03:31] LABS: C-REACTIVE PROTEIN 4.3 mg/dL (0.0-0.9)
[2021-09-21] MEDS ORDERED: IV NS 0.9% 500 ML IV ONE ×2 (04:30→10:30)
[2021-09-21] MEDS ORDERED: METHOCARBAMOL (750MG) 750 MG TABLET PO SCH (05:00)
--- NOTE | 2021-09-21 07:52 | NUR ---
report given to Marilin CORTEZ, continue plan of care.
--- NOTE | 2021-09-21 08:30 | NUR ---
RN NOTE PT RECEIVED VIA DARIN FROM ER REPORT RECEIVED FROM DANA HOPE, PT ALERT AND ORIENTED X1, BREATHING EVEN AND UNLABORED NO SOB OR DISTRESS NOTED AT THIS TIME, PT IS ON OXYGEN 2L VIA NASAL CANULA SAT 96% TELE READING 82 , PHOTO TAKEN FOR SACRUM REDNESS, IV ON THE R HAND #[address] BED LOCKED AND IN LOWEST POSITION CALL LIGHT WITHIN REACH WILL CONTINUE TO MONITOR
[2021-09-21] MEDS ORDERED: risperiDONE 0.25 MG TABLET PO SCH ×2 (09:00)
[2021-09-21] MEDS ORDERED: CALCIUM CARB PO SCH (09:00)
[2021-09-21] MEDS ORDERED: Medication Not On Formulary EA (Cranberry Extract (Cranberry) 850 MG) PO SCH (09:00)
[2021-09-21] MEDS ORDERED: DIVALPROEX SODIUM 250 MG TABLET.DR PO SCH (09:00)
[2021-09-21] MEDS ORDERED: PANTOPRAZOLE 40 MG VIAL IV SCH (09:00)
[2021-09-21] MEDS ORDERED: DOCUSATE SODIUM 100 MG CAPSULE PO SCH (09:00)
[2021-09-21] MEDS ORDERED: VIT D PO SCH (09:00)
[2021-09-21] MEDS: PANTOPRAZOLE 40 MG VIAL IV SCH (09:45)
[2021-09-21] MEDS: DOCUSATE SODIUM 100 MG CAPSULE PO SCH (09:45)
[2021-09-21] MEDS: DIVALPROEX SODIUM 250 MG TABLET.DR PO SCH (09:45)
[2021-09-21] MEDS: risperiDONE 1 MG TABLET PO SCH ×2 (09:56→16:36)
--- NOTE | 2021-09-21 10:30 | NUR ---
RN NOTE 500 NS BOLUS GIVEN PER DOCTOR LOW BP 87/50
[2021-09-21] MEDS: VANCOMYCIN 1 GM in IV D5W 250 ML IV SCH ×2 (10:35→21:11)
[2021-09-21] MEDS: CEFEPIME 2 GM in IV D5W 100 ML IV SCH ×2 (11:37→18:00)
[2021-09-21 12:00] VITALS: BP 101/60
[2021-09-21] MEDS: METHOCARBAMOL (750MG) 750 MG TABLET PO SCH ×2 (13:23→21:37)
[2021-09-21 16:00] VITALS: BP 103/53
[2021-09-21] MEDS: ASPIRIN 81 MG TAB.CHEW PO SCH (17:25)
[2021-09-21] MEDS ORDERED: ASPIRIN 81 MG TAB.CHEW PO SCH (18:00)
--- NOTE | 2021-09-21 18:21 | NUR ---
RN CLOSING NOTE PT REMAINS RESTING IN BED ALERT AND ORIENTED X2, BREATHING EVEN AND UNLABORED NO SOB OR DISTRESS NOTED AT THIS TIME, PT IS ON OXYGEN 2L VIA NASAL CANULA SAT 97% TELE READING 78, IV ON THE R HAND #18 PATENT AND FLUSHING WELL, ALL NEEDS MET DURING SHIFT PT KEPT COMFORTABLE AND CLEAN, SAFETY MEASURES IN PLACE BED LOCKED AND IN LOWEST POSITION CALL LIGHT WITHIN REACH WILL ENDORSE TO TALENT ACQUISITION SPECIALISTPARTS RUNNER
--- NOTE | 2021-09-21 19:40 | NUR ---
RN NOTE PATIENT ALERT AND ORIENTED X2. ON O2 2L VIA NASAL CANNULA. NO SHORTNESS OF BREATH NOTED. DENIES ANY PAIN AT THIS TIME. IV ACCESS ON RIGHT HAND # 18, PATENT AND INTACT. KEPT COMFORTABLE. BED LOCKED AND IN LOWEST POSITION. CALL LIGHT WITHIN REACH. ALL NEEDS ANTICIPATED.
[2021-09-21 20:00] VITALS: BP 96/57
[2021-09-21] MEDS: SIMVASTATIN 10 MG TABLET PO SCH (21:11)
[2021-09-21] MEDS: TRAZODONE 50 MG TABLET PO SCH (21:11)
[2021-09-21] MEDS: DIVALPROEX SODIUM 500 MG TABLET.DR PO SCH (21:11)
[2021-09-21] MEDS ORDERED: SIMVASTATIN 10 MG TABLET PO SCH (22:00)
[2021-09-21] MEDS ORDERED: TRAZODONE 50 MG TABLET PO SCH (22:00)
[2021-09-21] MEDS ORDERED: DIVALPROEX SODIUM 500 MG TABLET.DR PO SCH (22:00)
[2021-09-22] VITALS: BP 91/48
[2021-09-22] MEDS: CEFEPIME 2 GM in IV D5W 100 ML IV SCH ×3 (03:04→18:07)
[2021-09-22 04:00] VITALS: BP 96/66
[2021-09-22] MEDS: METHOCARBAMOL (750MG) 750 MG TABLET PO SCH ×3 (04:39→20:02)
--- NOTE | 2021-09-22 07:16 | NUR ---
RN NOTE PATIENT RESTING IN BED. ON O2 2L VIA NASAL CANNULA. NO SHORTNESS OF BREATH NOTED. DENIES ANY PAIN AT THIS TIME. IV ACCESS ON RIGHT HAND # 18, PATENT AND INTACT. ALL NEEDS ATTENDED PROMPTLY. TOLERATED BED BATH WELL. BED LOCKED AND IN LOWEST POSITION. CALL LIGHT WITHIN REACH. ENDORSED TO AM SHIFT.
[2021-09-22 08:00] VITALS: BP 89/54
--- NOTE | 2021-09-22 08:00 | NUR ---
FORMULA TECHNICIAN NOTE PATIENT IN BED , SLEEPING COMFORTABLY IN BED ,REFUSING BREAKFAST, ON TELE MONITOR SR HR 63, , RT HAND HL INTACT AND FLUSHED WELL , BED IN,LOWEST AND LOCKED POSITION , WILL CONT TO MONITOR CLOSELY
[2021-09-22] MEDS: DIVALPROEX SODIUM 250 MG TABLET.DR PO SCH (08:33)
[2021-09-22] MEDS: PANTOPRAZOLE 40 MG VIAL IV SCH (08:34)
[2021-09-22] MEDS: DOCUSATE SODIUM 100 MG CAPSULE PO SCH (08:34)
[2021-09-22] MEDS: risperiDONE 1 MG TABLET PO SCH ×2 (08:34→16:06)
[2021-09-22] MEDS: VANCOMYCIN 1 GM in IV D5W 250 ML IV SCH (09:40)
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
--- NOTE | 2021-09-22 11:53 | NUR ---
RN NOTES PATIENT IN BED , LYING DOWN COMFORTABLY IN BED , ON TELE MONITOR SR HR 63, , INSERTED NEW LEFT AC IV GAUGE 24, CATHETER INTACT AND FLUSHED WELL , INFLUENZA SWAB TEST SENT TO LAB, BED IN,LOWEST AND LOCKED POSITION , WILL CONT TO MONITOR CLOSELY, REPORT GIVEN TO DANA FOSTER
--- NOTE | 2021-09-22 11:54 | NUR ---
RN NOTE REPORT RECIEVED FROM DANA IQBAL FOR CONTINUE OF CARE
[2021-09-22 16:00] VITALS: BP 99/70
[2021-09-22] MEDS: ASPIRIN 81 MG TAB.CHEW PO SCH (18:07)
--- NOTE | 2021-09-22 18:49 | NUR ---
RN CLOSING NOTE PATIENT REMAINS IN BED COMFORTABLY ALERT AND ORIENTED X2/3 NO SIGN OF SOB OR DISTRESS AT THIS TIME ON 2L VIA NASAL CANULA SAT 100% IN RAC# 24 AND #18 PATENT INTACT AND FLUSHING WELL ALL NEEDS MET NO SIGNIFICANT CHANGES DURING SHIFT SAFETY MEASURES IN PLACE BED IN LOWEST AND LOCKED POSITION , CALL LIGHT WITHIN REACH WILL ENDORSE TO PROCESS EXCELLENCE MANAGERBILLING SPEC
--- NOTE | 2021-09-22 19:30 | NUR ---
RN OPENING NOTE RECEIVED PATIENT IN BED. A/OX2. ON OXYGEN 2L/MIN VIA NASAL CANNULA . RESPIRATIONS AR EVEN AND UNLABORED. NO S/S SOB NOTED. PATIENT WAS C/O PAIN IN SACRUM AND REQUESTED MOTRIN. IN NO APPARENT DISTRESS. IV ACCESS IN LAC#24 AND #18, THERE IS ORDER FOR MIDLINE. BED IS LOW AND LOCKED, HOB ELEVATED IN SEMI FOWLERS, SIDE RIALS UP X2, CALL LIGHT WITHIN REACH.
[2021-09-22 20:00] VITALS: BP 106/54
--- NOTE | 2021-09-22 20:02 | NUR ---
RN NOTE CALLED PHARMACY TO DELIVER JOHNNY
[2021-09-22] MEDS: THERAHONEY GEL 1.5 OZ TUBE TP SCH (20:17)
--- NOTE | 2021-09-22 21:21 | NUR ---
RN NOTE BODY ENGINEER AT BEDSIDE, PATIENT IS A HEARD STICK. UNABLE TO DRAW BLOOD FROM LINE.THEY WILL CALL ANOTHER BODY ENGINEER.
[2021-09-22] MEDS: TRAZODONE 50 MG TABLET PO SCH (22:25)
[2021-09-22] MEDS: DIVALPROEX SODIUM 500 MG TABLET.DR PO SCH (22:25)
[2021-09-22] MEDS: SIMVASTATIN 10 MG TABLET PO SCH (22:25)
--- NOTE | 2021-09-22 23:29 | NUR ---
RN NOTE CALLED LAB TO GET VANCO TROUGH RESULTS. THEY STATE THEY ARE HAVING TROUBLE WITH A MACHINE AND IT IS CURRENTLY BEING WORKED ON. WILL FOLLOW UP WITH RESULTS.
[2021-09-23] VITALS: BP 100/48
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
[2021-09-23] MEDS: VANCOMYCIN 1 GM in IV D5W 250 ML IV SCH ×3 (00:57→21:26)
[2021-09-23] MEDS: CEFEPIME 2 GM in IV D5W 100 ML IV SCH ×3 (03:37→20:02)
[2021-09-23 05:00] VITALS: BP 92/55
[2021-09-23] MEDS: METHOCARBAMOL (750MG) 750 MG TABLET PO SCH ×3 (05:27→20:27)
--- NOTE | 2021-09-23 07:17 | NUR ---
RN CLOSING NOTE PATIENT RESTING IN BED. A/OX2. REMANS ON OXYGEN 2L/MIN VIA NASAL CANNULA .NO REPS DISTRESS. PAIN MANAGED WITH MOTRIN. NO DISTRESS. NEW IV ACCESS IN MISTY MIDLINE, LAC#24 AND #18, MAINTAINED. BED REMAINS LOW AND LOCKED, HOB ELEVATED IN SEMI FOWLERS, SIDE RIALS UP X2, CALL LIGHT WITHIN REACH. WILL ENDORSE TO ONCOMING SHIFT.
--- NOTE | 2021-09-23 07:30 | NUR ---
RN NOTE RECEIVED PATIENT RESTING IN BED. A/OX2. REMANS ON OXYGEN 2L/MIN VIA NASAL CANNULA .NO REPS DISTRESS. NO DISTRESS NOTED. IV ACCESS IN MISTY MIDLINE, LAC#24 AND #18, MAINTAINED. BED REMAINS LOW AND LOCKED, HOB ELEVATED IN SEMI FOWLERS, SIDE RIALS UP X2, CALL LIGHT WITHIN REACH. WILL REED
[2021-09-23 07:35] LABS: BASOPHILS % (AUTO) 0.6 % (0.0-2.0); EOSINOPHILS % (AUTO) 5.2 % (0.0-6.0); HEMATOCRIT 33 % (33-45); HEMOGLOBIN 11.3 g/dL (11.5-14.8); LYMPHOCYTES # (AUTO) 0.8 K/uL (0.8-4.8); LYMPHOCYTES % (AUTO) 29.1 % (20.0-44.0); MEAN CORPUSCULAR HGB CONC 34 g/dl (31.0-36.0); MEAN CORPUSCULAR VOLUME 93 fL (82-100); MONOCYTES # (AUTO) 0.6 K/uL (0.1-1.30); MONOCYTES % (AUTO) 19.7 % (2.0-12.0); NEUTROPHILS # (AUTO) 1.3 K/uL (1.8-8.9); NEUTROPHILS % (AUTO) 45.4 % (43.0-81.0); PLATELET COUNT (AUTO) 172 K/uL (150-450); RED BLOOD CELL COUNT(AUTO) 3.57 MIL/uL (4.0-5.2); WHITE BLOOD COUNT (AUTO) 2.8 K/uL (4.3-11.0)
[2021-09-23 07:51] LABS: CALCIUM, SERUM 8.5 mg/dL (8.5-10.1); CREATININE 0.4 mg/dL (0.6-1.3); MAGNESIUM 1.8 mg/dL (1.8-2.4); PHOSPHORUS 3.2 mg/dL (2.5-4.9); POTASSIUM 3.5 mmol/L (3.5-5.1)
[2021-09-23] MEDS: PANTOPRAZOLE 40 MG TABLET.DR PO SCH (07:51)
[2021-09-23 08:00] VITALS: BP 101/57
--- NOTE | 2021-09-23 08:38 | NUR ---
PCR COVID NEGATIVE NOTIFIED.
[2021-09-23] MEDS: risperiDONE 1 MG TABLET PO SCH ×2 (09:24→16:45)
[2021-09-23] MEDS: DIVALPROEX SODIUM 250 MG TABLET.DR PO SCH (09:24)
[2021-09-23] MEDS: DOCUSATE SODIUM 100 MG CAPSULE PO SCH (09:24)
[2021-09-23] MEDS: THERAHONEY GEL 1.5 OZ TUBE TP SCH (09:25)
--- NOTE | 2021-09-23 10:00 | NUR ---
RN NOTE wound care as ordered, CLEAN WITH NS, PAT DRY, APPLY THERAHONEY, APPLY DRY DRESSING
--- NOTE | 2021-09-23 10:34 | NUR ---
RN NOTE HOLD THE VANCOMYCIN FOR 1000 PER PHARMACY RADHA, DUE TO VANCO THROUGH IS STILL PENDING, WILL RESUME AFTER I GET THE LAB RESULT FOR VANCO TROUGH.
[2021-09-23] MEDS: PROSOURCE / PROSTAT (PYXIS) 30 ML UDC PO SCH ×3 (10:35→16:45)
--- NOTE | 2021-09-23 11:31 | NUR ---
RN NOTE CALL LAB TO FOLLOW UP FOR BENITA ROLDAN, LAB STATED IS NOT READY YET RIGHT NOW AT 1131. STILL PENDING
--- NOTE | 2021-09-23 12:56 | NUR ---
RN NOTE JUST RECEIVED VANCO TROUGH RESALT NOW, INFUSE VANCO.
[2021-09-23 16:00] VITALS: BP 125/60
[2021-09-23] MEDS: ASPIRIN 81 MG TAB.CHEW PO SCH (17:32)
[2021-09-23 20:00] VITALS: BP 109/62
[2021-09-23] MEDS: TRAZODONE 50 MG TABLET PO SCH (21:28)
[2021-09-23] MEDS: SIMVASTATIN 10 MG TABLET PO SCH (21:29)
[2021-09-23] MEDS: DIVALPROEX SODIUM 500 MG TABLET.DR PO SCH (21:29)
[2021-09-23 22:50] VITALS: BP 114/72
--- NOTE | 2021-09-23 23:00 | NUR ---
RN NOTES, PATIENT TRANSFERRED TO 3W ROOM 323-1 ENDORSED TO BECCA RN FOR CONTINUATION OF CARE, PATIENT ON 2LPM VIA NC WITH 02 >95%, STABLE VITAL SIGNS, NO DISTRESS NOTED, NO BELONGINGS, MEDICATION AND CHART GIVEN TO BECCA.
[2021-09-23 23:10] LABS: BAND % (MANUAL) 1 % (0.0-5.0); EOSINOPHILS % (MANUAL) 7 % (0-4); LYMPHOCYTES % (MANUAL) 29 % (16-48); MONOCYTES % (MANUAL) 15 % (0-11.0); NEUTROPHILS % (MANUAL) 48 (42-76)
--- NOTE | 2021-09-23 23:53 | NUR ---
RN NOTES: RECEIVED PATIENT VIA GURNEY AT 2245 FROM COMFORT, PATIENT AWAKE NO COMPLAIN OF PAIN AND DISCOMFORT, APPEARS STABLE WITH V/S FOLLOWS, BP-114/72, HR-83, RR-18, TEMP-97.8 ON 2LPM O2 AT 98% SATURATING WELL PATIENT WAS PLACE IN LOW BED REMIND TO USE THE CALL LIGHTS WHEN NEDED ASSISTANCE, SKIN ASSESSMENT DONE, DOCUMENTED, PATIENT KEPT CLEAN AND DRY ALL NEEDS MET, WILL CONTINUE TO MONITOR
[2021-09-24] VITALS: BP 109/62
[2021-09-24] MEDS: CEFEPIME 2 GM in IV D5W 100 ML IV SCH ×2 (03:45→11:28)
[2021-09-24] MEDS ORDERED: METHOCARBAMOL (750MG) 750 MG TABLET ONE (05:48)
[2021-09-24] MEDS: METHOCARBAMOL (750MG) 750 MG TABLET PO SCH ×2 (05:52→14:19)
--- NOTE | 2021-09-24 06:07 | NUR ---
RN CLOSING NOTES: PATIENT SLEEP IN BED COMFORTABLY, AROUSABLE TO VERBAL STIMULI, BED IN LOW POSITION, CALL LIGHTS WITHIN REACH, NO COMPLAIN OF PAIN AND DISCOMFORT AT THIS TIME, PATIENT IS A/OX2, WITH O2 INHALATION AT 3LPM NO SOB WAS OBSERVED, WITH LAC#18 AND MISTY MIDLINE, PATIENT KEPT CLEAN AND DRY, ALL NEEDS MET ENDORSE TO INCOMING SHIFT.
[2021-09-24 07:17] LABS: BASOPHILS % (AUTO) 0.7 % (0.0-2.0); HEMATOCRIT 32 % (33-45); HEMOGLOBIN 10.8 g/dL (11.5-14.8); LYMPHOCYTES # (AUTO) 1.1 K/uL (0.8-4.8); LYMPHOCYTES % (AUTO) 35.2 % (20.0-44.0); MEAN CORPUSCULAR HGB CONC 34 g/dl (31.0-36.0); MEAN CORPUSCULAR VOLUME 93 fL (82-100); MONOCYTES # (AUTO) 0.6 K/uL (0.1-1.30); MONOCYTES % (AUTO) 20.6 % (2.0-12.0); NEUTROPHILS # (AUTO) 1.3 K/uL (1.8-8.9); NEUTROPHILS % (AUTO) 40.5 % (43.0-81.0); PLATELET COUNT (AUTO) 181 K/uL (150-450); RED BLOOD CELL COUNT(AUTO) 3.43 MIL/uL (4.0-5.2); WHITE BLOOD COUNT (AUTO) 3.1 K/uL (4.3-11.0)
--- NOTE | 2021-09-24 07:30 | NUR ---
RN MS NOTES PT IN BED, ASLEEP, EASY TO AROUSE, VERBALLY RESPONSIVE, NO COMPLAINT OF PAIN, RESPIRATIONS NORMAL, CALL LIGHT WITHIN REACH, ASSISTED WITH NEEDS.
[2021-09-24 08:00] VITALS: BP 109/62
[2021-09-24 08:49] LABS: CALCIUM, SERUM 8.5 mg/dL (8.5-10.1); CREATININE 0.3 mg/dL (0.6-1.3); MAGNESIUM 1.9 mg/dL (1.8-2.4); PHOSPHORUS 3.1 mg/dL (2.5-4.9); POTASSIUM 3.5 mmol/L (3.5-5.1)
[2021-09-24] MEDS: PROSOURCE / PROSTAT (PYXIS) 30 ML UDC PO SCH ×2 (10:17→13:00)
[2021-09-24] MEDS: PANTOPRAZOLE 40 MG TABLET.DR PO SCH (10:18)
[2021-09-24] MEDS: DOCUSATE SODIUM 100 MG CAPSULE PO SCH (10:18)
[2021-09-24] MEDS: risperiDONE 1 MG TABLET PO SCH (10:18)
[2021-09-24] MEDS: DIVALPROEX SODIUM 250 MG TABLET.DR PO SCH (10:21)
[2021-09-24] MEDS: VANCOMYCIN 1 GM in IV D5W 250 ML IV SCH (10:21)
[2021-09-24] MEDS: THERAHONEY GEL 1.5 OZ TUBE TP SCH (10:47)
[2021-09-24] MEDS ORDERED: AMOX-430 PO (11:34)
[2021-09-24 16:00] VITALS: BP 110/65
[2021-09-24 16:24] LABS: EOSINOPHILS % (MANUAL) 5 % (0-4); LYMPHOCYTES % (MANUAL) 38 % (16-48); MONOCYTES % (MANUAL) 18 % (0-11.0); NEUTROPHILS % (MANUAL) 39 (42-76)
--- NOTE | 2021-09-24 16:52 | NUR ---
RN MS NOTES PT IN BED, AWAKE, ALERT AND VERBALLY RESPONSIVE, DENIES PAIN, NOT IN DISTRESS, O2 SAT 98% ON ROOM AIR, SEEN AND EXAMINED BY DR. CROOK, DISCHARGE ORDER GIVEN, DISCHARGE AND MEDICATION INSTRUCTIONS GIVEN TO PT, VERBALIZED UNDERSTANDING, PT'S INFORMED OF PT'S TRANSFER BACK TO SNF, REPORT GIVEN TO JAYLIN CORTEZ OF [facility], PT HAS NO BELONGINGS, PICKED UP BY 2 AMBULANCE PERSONNEL, LEFT VIA GUERNEY IN STABLE CONDITION.
== END 2021-09-24 16:55 | DRG 189 ==
LOC: ER 21:16 → TELE1 09-21 08:29 → MEDSG1 09-22 10:20 → MED 09-23 22:50
PROVIDERS: ADMIT Internal Medicine; ATTEND Hospitalist
PROC: 05H933Z Insertion of Infusion Device into Right Brachial Vein, Percutaneous Approach (ICD-10-PCS; principal; 2021-09-22)
DX: J96.20 Acute and chronic respiratory failure, unspecified whether with hypoxia or hypercapnia (principal); L89.153 Pressure ulcer of sacral region, stage 3; G92.8 Other toxic encephalopathy; E87.1 Hypo-osmolality and hyponatremia; D68.59 Other primary thrombophilia; E44.1 Mild protein-calorie malnutrition; J90 Pleural effusion, not elsewhere classified; J98.11 Atelectasis; E87.6 Hypokalemia; G40.909 Epilepsy, unspecified, not intractable, without status epilepticus; F03.90 Unspecified dementia, unspecified severity, without behavioral disturbance, psychotic disturbance, mood disturbance, and anxiety; Z20.822 Contact with and (suspected) exposure to COVID-19; Z86.73 Personal history of transient ischemic attack (TIA), and cerebral infarction without residual deficits; G43.909 Migraine, unspecified, not intractable, without status migrainosus; I10 Essential (primary) hypertension; E78.5 Hyperlipidemia, unspecified; K21.9 Gastro-esophageal reflux disease without esophagitis; F20.9 Schizophrenia, unspecified; F41.9 Anxiety disorder, unspecified; F32.A Depression, unspecified; F29 Unspecified psychosis not due to a substance or known physiological condition; K44.9 Diaphragmatic hernia without obstruction or gangrene; H52.4 Presbyopia; H26.9 Unspecified cataract; Z88.6 Allergy status to analgesic agent; Z88.5 Allergy status to narcotic agent; Z88.2 Allergy status to sulfonamides; Z88.8 Allergy status to other drugs, medicaments and biological substances; Z79.899 Other long term (current) drug therapy; Z79.82 Long term (current) use of aspirin; Z79.51 Long term (current) use of inhaled steroids; Z85.01 Personal history of malignant neoplasm of esophagus
CPT/HCPCS: 36415; 70450-TC; 71045-TC; 80048-TC; 80076-TC; 80164-TC; 80202-TC; 81001; 82550-TC; 83605-TC; 83615-TC; 83735-TC; 84100-TC; 84484-TC; 85025-TC; 85378-TC; 85730-TC; 86140-TC; 87040-TC; 87081-TC; 87086-TC; A6253; C9113; C9803; G0378; J0456; J0692; J0696; J3370; J7030; J7040; J7050; J7060; U0003

== ENCOUNTER 2022-02-24 18:53 | Inpatient (IN) | payer MEDICARE, OTHER ==
[~2022-02-24] VITALS: Ht 165.1 cm; Wt 68.6 kg
[~2022-02-24 18:53] MED LIST changes: +AMOX-430 PO
--- NOTE | 2022-02-24 19:05 | NUR ---
NIMESH FROM [facility] FOR POS UTI AND PNA. THE PATIENT SENT TO ER BY FRANSICO MEI. PT A/OX2. TOLERATING R/A WELL WITH NO SOB. CONNECTED PT TO POX AND MONITOR. SAFETY MEASURES IN PLACE.
--- NOTE | 2022-02-24 19:13 | NUR ---
NETWORK DESIGN ARCHITECT AT PT'S BEDSIDE
[2022-02-24] MEDS ORDERED: CEFTRIAXONE 1GM BAG (ER ONLY) 50 ML IV ONE (19:17)
[2022-02-24] MEDS ORDERED: CEFTRIAXONE 1GM BAG (ER ONLY) 1 GM/50 ML PIGGYBACK IV ONE (19:30)
[2022-02-24] MEDS ORDERED: AZITHROMYCIN 500 MG in IV D5W 250 ML IV ONE (19:30)
--- NOTE | 2022-02-24 19:42 | NUR ---
IV #22G S/L; PATENT AND INTACT. BLOOD AND COVID ANTIGEN SWAB COLLECTED AND SENT TO LAB
[2022-02-24 19:43] LABS: BASOPHILS % (AUTO) 0.6 % (0.0-2.0); EOSINOPHILS % (AUTO) 0.3 % (0.0-6.0); HEMATOCRIT 36 % (33-45); LYMPHOCYTES # (AUTO) 1.1 K/uL (0.8-4.8); LYMPHOCYTES % (AUTO) 24.5 % (20.0-44.0); MEAN CORPUSCULAR HGB CONC 33 g/dl (31.0-36.0); MEAN CORPUSCULAR VOLUME 89 fL (82-100); MONOCYTES # (AUTO) 0.9 K/uL (0.1-1.30); MONOCYTES % (AUTO) 19.8 % (2.0-12.0); NEUTROPHILS # (AUTO) 2.6 K/uL (1.8-8.9); NEUTROPHILS % (AUTO) 54.8 % (43.0-81.0); PLATELET COUNT (AUTO) 224 K/uL (150-450); RED BLOOD CELL COUNT(AUTO) 4.01 MIL/uL (4.0-5.2); WHITE BLOOD COUNT (AUTO) 4.7 K/uL (4.3-11.0)
[2022-02-24 19:53] LABS: CALCIUM, SERUM 8.2 mg/dL (8.5-10.1); CREATININE 0.7 mg/dL (0.6-1.3); POTASSIUM 4.2 mmol/L (3.5-5.1)
[2022-02-24 19:59] LABS: ALBUMIN 2.6 g/dL (3.4-5.0); BILIRUBIN,TOTAL 0.2 mg/dL (0.2-1.0); TOTAL PROTEIN, SERUM 5.9 g/dL (6.4-8.2)
--- NOTE | 2022-02-24 20:00 | NUR ---
INSERTED F/C 16FR URINE COLLECTED AND SENT TO LAB.
[2022-02-24] MEDS ORDERED: AZITHROMYCIN 500 MG VIAL ONE (20:03)
--- NOTE | 2022-02-24 20:08 | NUR ---
[facility] PAGED
[2022-02-24] MEDS ORDERED: ONDANSETRON HCL/PF 4 MG/2 ML VIAL IVP PRN (20:30)
[2022-02-24] MEDS ORDERED: METHOCARBAMOL (750MG) 750 MG TABLET PO PRN (20:30)
[2022-02-24] MEDS ORDERED: Z GUARD REMEDY 4 OZ OINT TP PRN (20:30)
[2022-02-24] MEDS ORDERED: NA PHOS,M-B/NA PHOS,DI-BA 1 EA ENEMA RC PRN (20:30)
[2022-02-24] MEDS ORDERED: BISACODYL SUPP (10 MG) 10 MG/SUPP.RECT SUPP.RECT RC PRN (20:30)
[2022-02-24] MEDS ORDERED: MAGNESIUM HYDROXIDE 30 ML UDC PO PRN (20:30)
[2022-02-24] MEDS ORDERED: ALBUTEROL FS 2.5 MG/0.5 ML VIAL.NEB IH PRN (20:30)
[2022-02-24] MEDS ORDERED: MAG HYDROX/AL HYDROX/SIMETH 30 ML UDC PO PRN (20:30)
[2022-02-24] MEDS ORDERED: hydrALAZINE HCL IV 20 MG VIAL IV PRN (20:30)
[2022-02-24 20:32] LABS: BILIRUBIN,URINE NEGATIVE (NEGATIVE); COLOR,URINE YELLOW (YELLOW); LEUKOCYTE ESTERASE ,URINE MODERATE (NEGATIVE); NITRITE, URINE NEGATIVE (NEGATIVE); PROTEIN,URINE 30 mg/dl (NEGATIVE); UGLUCOSE NEGATIVE (NEGATIVE)
[2022-02-24 20:44] LABS: BACTERIA,URINE 4+ /HPF (None Seen); RBC,URINE 51-80 /HPF (0-2); SQUAMOUS EPITHELIAL CELL,UR 0-2 /HPF (None Seen); WBC,URINE 51-80 /HPF (0-3)
[2022-02-24 20:58] LABS: BAND % (MANUAL) 1 % (0.0-5.0); LYMPHOCYTES % (MANUAL) 25 % (16-48); MONOCYTES % (MANUAL) 14 % (0-11.0); NEUTROPHILS % (MANUAL) 60 (42-76)
[2022-02-24] MEDS: METOPROLOL TARTRATE 25 MG TABLET PO SCH (21:00)
--- NOTE | 2022-02-24 22:07 | NUR ---
REPORT GIVEN TO LIDYA BonillaW RN FOR REED
[2022-02-24] MEDS ORDERED: CEFTRIAXONE 1 G VIAL IM SCH (22:30)
--- NOTE | 2022-02-24 22:40 | NUR ---
PT TRANSFERRED TO 3 VIA HOSPITAL PROTOCOL. VSS.
[2022-02-24 22:42] VITALS: BP 106/72
[2022-02-24 22:45] VITALS: BP 105/72
--- NOTE | 2022-02-24 22:45 | NUR ---
MS/RN ADMITTING NOTE PATIENT ARRIVED TO UNIT VIA GURNEY AND 1 STAFF MEMBER. PATIENT BEING ADMITTED WITH DX OF FTT AND RECENT HX OF PNA WITH HYPOXEMIA. PATIENT IS ALERT AND ORIENTED X 3 WITH SLOW RESPONSES. ABLE TO MAKE NEEDS KNOWN. DENIES PAIN AT THIS TIME. CONTINUES ON ROOM AIR WITH NO S/SX OF RESPIRATORY DISTRESS NOTED. IV ACCESS TO RIGHT FOREARM #22G INTACT, PATENT AND SALINE LOCKED. SKIN CHECK PERFORMED ON ADMISSION WITH REDNESS NOTED TO SACRUM AND LEFT HEEL. PICTURES TAKEN AND PLACED IN CHART. WOUND CONSULT ORDERED. CONTINUES ON REGULAR DIET WITH NO S/SX OF ASPIRATION NOTED. PATIENT ORIENTED TO ROOM, CALL LIGHT AND UNIT. CALL LIGHT WITHIN REACH. ASPIRATION, FALL AND SAFETY PRECAUTIONS MAINTAINED. ALL NEEDS ATTENDED TO AT THIS TIME.
[2022-02-24] MEDS: MAGNESIUM HYDROXIDE 30 ML UDC PO SCH (23:19)
[2022-02-24] MEDS: DIVALPROEX SODIUM 500 MG TABLET.DR PO SCH (23:19)
[2022-02-24] MEDS: SIMVASTATIN 10 MG TABLET PO SCH (23:19)
[2022-02-24] MEDS: TRAZODONE 50 MG TABLET PO SCH (23:19)
[2022-02-24] MEDS: HEPARIN SODIUM, PORCINE 5000 UNITS/1 ML VIAL SQ SCH (23:21)
--- NOTE | 2022-02-24 23:30 | NUR ---
MS/RN NOTE PATIENT WITH SCHEDULED ROCEPHIN AT 22:30. PATIENT ALREADY RECEIVED A DOSE TONIGHT IN ER. NOTIFIED PROOF COIN COLLECTOR MD SANCHEZ WITH ORDERS TO CHANGE TIMING OF MEDICATION TO 0900 DAILY. ALSO TO CHANGE ROUTE OF ADMINISTRATION WHICH CURRENTLY IS IM. ROCEPHIN CHANGED TO 0900 AND ROUTE OF ADMINISTRATION CHANGED TO IV.
[2022-02-25] MEDS: METOPROLOL TARTRATE 25 MG TABLET PO SCH ×3 (06:18→21:14)
--- NOTE | 2022-02-25 06:50 | NUR ---
MS/RN CLOSING NOTE PATIENT CURRENTLY SLEEPING IN BED. ALERT AND ORIENTED X 2-3. ABLE TO MAKE NEEDS KNOWN. DENIES PAIN AT THIS TIME. CONTINUES ON ROOM AIR WITH NO S/SX RESPIRATORY DISTRESS NOTED. IV ACCESS TO RIGHT FOREARM #20G INTACT, PATENT AND SALINE LOCKED. CONTINUES ON IV ABX FOR UTI. CONTINUES WITH IVEY CATHETER DRAINING CLOUDY, YELLOW URINE. TOTAL OUTPUT THIS SHIFT IS 600CC. CALL LIGHT WITHIN REACH. ASPIRATION, FALL AND SAFETY PRECAUTIONS MAINTAINED. WILL ENDORSE PLAN OF CARE TO ONCOMING SHIFT.
[2022-02-25 07:07] LABS: ALBUMIN 2.5 g/dL (3.4-5.0); BILIRUBIN,TOTAL 0.2 mg/dL (0.2-1.0); CREATININE 0.4 mg/dL (0.6-1.3); MAGNESIUM 1.7 mg/dL (1.8-2.4); PHOSPHORUS 3.1 mg/dL (2.5-4.9); POTASSIUM 4.1 mmol/L (3.5-5.1); TOTAL PROTEIN, SERUM 5.9 g/dL (6.4-8.2)
[2022-02-25 07:24] LABS: BASOPHILS % (AUTO) 0.9 % (0.0-2.0); EOSINOPHILS % (AUTO) 0.5 % (0.0-6.0); HEMATOCRIT 36 % (33-45); HEMOGLOBIN 12.3 g/dL (11.5-14.8); LYMPHOCYTES # (AUTO) 1.7 K/uL (0.8-4.8); LYMPHOCYTES % (AUTO) 31.4 % (20.0-44.0); MEAN CORPUSCULAR HGB CONC 34 g/dl (31.0-36.0); MEAN CORPUSCULAR VOLUME 91 fL (82-100); MONOCYTES # (AUTO) 0.8 K/uL (0.1-1.30); MONOCYTES % (AUTO) 15.1 % (2.0-12.0); NEUTROPHILS # (AUTO) 2.7 K/uL (1.8-8.9); NEUTROPHILS % (AUTO) 52.1 % (43.0-81.0); PLATELET COUNT (AUTO) 223 K/uL (150-450); RED BLOOD CELL COUNT(AUTO) 3.99 MIL/uL (4.0-5.2); WHITE BLOOD COUNT (AUTO) 5.3 K/uL (4.3-11.0)
[2022-02-25 07:39] LABS: CALCIUM, SERUM 8.9 mg/dL (8.5-10.1)
--- NOTE | 2022-02-25 07:45 | NUR ---
MS RN OPENING NOTE Patient in bed, asleep. A/O x 2-3. On room air, breathing evenly and unlabored. No SOB or s/s of distress noted. IV access on RFA #22 SL, intact and patent. Phan catheter in place draining to a yellow colored urine. Safety precautions in place: bed in low, locked position; siderails up x 2; call light within reach. Will continue to monitor.
[2022-02-25 08:00] VITALS: BP 105/59
[2022-02-25] MEDS: POLYETHYLENE GLYCOL 3350 17 GM POWD.PACK PO SCH (08:31)
[2022-02-25] MEDS: PANTOPRAZOLE 40 MG TABLET.DR PO SCH (08:31)
[2022-02-25] MEDS: risperiDONE 1 MG TABLET PO SCH ×2 (08:31→17:23)
[2022-02-25] MEDS: CHOLECALCIFEROL 1,000 UNIT TABLET (VIT D3) PO SCH (08:31)
[2022-02-25] MEDS: DOCUSATE SODIUM 100 MG CAPSULE PO SCH (08:32)
[2022-02-25] MEDS: DIVALPROEX SODIUM 250 MG TABLET.DR PO SCH (08:32)
[2022-02-25] MEDS: HEPARIN SODIUM, PORCINE 5000 UNITS/1 ML VIAL SQ SCH ×2 (08:33→21:15)
[2022-02-25] MEDS ORDERED: CEFTRIAXONE 1 G VIAL IV SCH (09:00)
[2022-02-25] MEDS ORDERED: AMOX/CLAVULANATE 875 MG TABLET PO SCH (09:00)
[2022-02-25] MEDS ORDERED: DOCUSATE SODIUM LIQ 100 MG/10 ML UDC PO SCH (09:00)
[2022-02-25] MEDS ORDERED: FUROSEMIDE 20 MG TABLET PO SCH (09:00)
--- NOTE | 2022-02-25 09:29 | NUR ---
WOUND CARE CONSULT: PT PRESENTS WITH SACRAL SCARRING AND DUSKY COLOR TO HEELS WITH BLANCHABLE REDNESS, PRESENT ON ADMISSION. RECOMMENDATIONS MADE FOR SKIN PROTECTION. DISCUSSED WITH NURSING STAFF. MD IN AGREEMENT WITH PLAN OF CARE. IVEY CATH NOTED.
[2022-02-25] MEDS: Magnesium 1GM/D5W 100ML PREMIX 100 ML IV SCH ×2 (10:52→11:43)
[2022-02-25 12:52] LABS: LYMPHOCYTES % (MANUAL) 28 % (16-48); MONOCYTES % (MANUAL) 18 % (0-11.0); NEUTROPHILS % (MANUAL) 54 (42-76)
[2022-02-25 16:36] VITALS: BP 105/60
[2022-02-25] MEDS: ASPIRIN 81 MG TAB.CHEW PO SCH (17:23)
[2022-02-25] MEDS: MORPHINE SULFATE INJ 2 MG/ML DISP.SYRIN IV PRN (18:10)
--- NOTE | 2022-02-25 18:10 | NUR ---
RN NOTE Patient complained of pain on left neck 9/10 on pain scale. Morphine PRN given. Will continue to monitor.
--- NOTE | 2022-02-25 18:48 | NUR ---
MS RN CLOSING NOTE Patient in bed, asleep. A/O x 2-3, able to make needs known. Stable on room air, breathing evenly and unlabored. No SOB or s/s of distress noted. IV access on RFA #22 SL, intact and patent. Phan catheter in place draining to a yellow colored urine with an output of 750 cc. All needs attended to. Due meds given. Safety precautions maintained: bed in low, locked position; siderails up x 2; call light within reach. Will endorse to dye blender nurse for REED.
--- NOTE | 2022-02-25 19:45 | NUR ---
MS RN NOTES RECEIVED ON BED SLEEPING,AROUSABLE TO VERBAL STIMULI,A/O X2-3,SLOW TO RESPOND PER REPORT,BREATHING REGULAR,NOT IN ANY FORM OF DISTRESS,SALINE LOCK RFA INTACT AND PATENT.IVEY CATH IN PLACE DRAINING YELLOWISH OUTPUT.FALL PRECAUTION OBSERVED,BED ON LOWEST POSITION AND LOCKED,BED ALARM,CALL LIGHT IN REACH,NEEDS ANTICIPATED.
[2022-02-25 20:00] VITALS: BP 106/66
[2022-02-25] MEDS: CEFTRIAXONE 1 G in IV D5W 50 ML IV SCH (20:35)
[2022-02-25 20:56] VITALS: BP 106/66
[2022-02-25] MEDS: SIMVASTATIN 10 MG TABLET PO SCH (21:52)
[2022-02-25] MEDS: TRAZODONE 50 MG TABLET PO SCH (21:52)
[2022-02-25] MEDS: DIVALPROEX SODIUM 500 MG TABLET.DR PO SCH (21:52)
[2022-02-25] MEDS: MAGNESIUM HYDROXIDE 30 ML UDC PO SCH (21:52)
[2022-02-26] MEDS: METOPROLOL TARTRATE 25 MG TABLET PO SCH ×3 (04:56→20:25)
--- NOTE | 2022-02-26 05:00 | NUR ---
MS RN NOTES BP 91/53,PULSE-75,DUE LOPRESSOR 25MG PO HELD
--- NOTE | 2022-02-26 06:20 | NUR ---
MS RN NOTES FAIRLY RESTED AT NIGHT,ALL DUE PO MEDS GIVEN,TAKEN WELL.NEGATIVE FOR ASPIRATION.IVEY CATH DRAINS WELL WITH URINE.IN NO ACUTE DISTREAA.
[2022-02-26] MEDS: ACETAMINOPHEN 325 MG TABLET PO PRN (06:25)
--- NOTE | 2022-02-26 06:25 | NUR ---
MS RN NOTES C/O GENERALIZED PAIN 3/10 ON PAIN SCALE,TYLENOL 650MG PO GIVEN ORDERED.
[2022-02-26 06:40] LABS: BASOPHILS % (AUTO) 0.4 % (0.0-2.0); EOSINOPHILS % (AUTO) 0.4 % (0.0-6.0); HEMATOCRIT 37 % (33-45); HEMOGLOBIN 12.4 g/dL (11.5-14.8); LYMPHOCYTES # (AUTO) 1.6 K/uL (0.8-4.8); LYMPHOCYTES % (AUTO) 31.4 % (20.0-44.0); MEAN CORPUSCULAR HGB CONC 34 g/dl (31.0-36.0); MEAN CORPUSCULAR VOLUME 91 fL (82-100); MONOCYTES # (AUTO) 0.9 K/uL (0.1-1.30); MONOCYTES % (AUTO) 17.9 % (2.0-12.0); NEUTROPHILS # (AUTO) 2.6 K/uL (1.8-8.9); NEUTROPHILS % (AUTO) 49.9 % (43.0-81.0); PLATELET COUNT (AUTO) 229 K/uL (150-450); RED BLOOD CELL COUNT(AUTO) 4.04 MIL/uL (4.0-5.2); WHITE BLOOD COUNT (AUTO) 5.2 K/uL (4.3-11.0)
[2022-02-26 07:11] LABS: CREATININE 0.4 mg/dL (0.6-1.3); MAGNESIUM 2.1 mg/dL (1.8-2.4); PHOSPHORUS 3.2 mg/dL (2.5-4.9); POTASSIUM 4.1 mmol/L (3.5-5.1)
[2022-02-26 07:20] LABS: THYROID STIMULATING HORMONE 5.727 uIU/mL (0.358-3.74); URIC ACID 3.9 mg/dL (2.6-7.2)
[2022-02-26 08:00] VITALS: BP 105/51
--- NOTE | 2022-02-26 08:00 | NUR ---
RN OPENING NOTE PATIENT RECEIVED IN BED, AO X 2-3. ABLE TO RESPONDS ALL STIMULI. IN NO ACUTE DISTRESS NOTED. RESPIRATORY EVEN AND UNLABORED ON ROOM AIR. SKIN IS WARM TO TOUCH, KEEP CLEAN/DRY. IVEY CONNECTING TO URINE BAG. KEPT ELEVATED HOB FOR ENSURE AIRWAY AND ASPIRATION PRECAUTION, ALSO LOWEST POSITION OF THE BED, S/R UP X 3, BED ALARM IS ON AT ALL THE TIMES. ALL SAFETY PRECAUTION APPLIED. CALL LIGHT WITHIN REACH, WILL CONTINUE TO MONITOR.
[2022-02-26] MEDS: POLYETHYLENE GLYCOL 3350 17 GM POWD.PACK PO SCH (08:13)
[2022-02-26] MEDS: DIVALPROEX SODIUM 250 MG TABLET.DR PO SCH (08:13)
[2022-02-26] MEDS: CHOLECALCIFEROL 1,000 UNIT TABLET (VIT D3) PO SCH (08:13)
[2022-02-26] MEDS: PANTOPRAZOLE 40 MG TABLET.DR PO SCH (08:13)
[2022-02-26] MEDS: DOCUSATE SODIUM 100 MG CAPSULE PO SCH (08:13)
[2022-02-26] MEDS: risperiDONE 1 MG TABLET PO SCH ×2 (08:15→17:44)
[2022-02-26] MEDS: HEPARIN SODIUM, PORCINE 5000 UNITS/1 ML VIAL SQ SCH (08:16)
--- NOTE | 2022-02-26 12:41 | NUR ---
PATIENT BP: 97/44, P-83. HELD METOPROLOL.
--- NOTE | 2022-02-26 15:38 | NUR ---
PATIENT DONE CT CHEST WO CONTRAST, RECURVED NEW ORDER THORACENTESIS BY DR. OLIVEIRA. OBTAINED TELEPHONE CONSENT SIGNED BY /KIM SOLORZANO WITH FARSHAD RN WITNESS.
[2022-02-26] MEDS: ASPIRIN 81 MG TAB.CHEW PO SCH (17:43)
--- NOTE | 2022-02-26 18:27 | NUR ---
RN CLOSE NOTE PATIENT IN BED. IN NO ACUTE DISTRESS OBSERVED. RESPIRATION EVEN AND UNLABORED ON ROOM AIR. SKIN IS WARM TO TOUCH KEEP CLEAN/DRY. KEPT ELEVATED HOB FOR ASPIRATION PRECAUTION AND ENSURE AIR WAY, ALSO LOWEST POSITION OF THE BED FOR SAFETY. CALL LIGHT WITHIN REACH, WILL ENDORSE TO MECHANICAL OXIDIZER.
--- NOTE | 2022-02-26 19:48 | NUR ---
RN OPENING NOTE PATIENT RECEIVED IN AA0X2 ON RM AIR DONTE WELL NO SIGN SOB/DISTRESS NOTED.BREATHING EVEN AND UNLABORED. IV ACCESS RFA 20G SL.PATENT AND INTACT.KEPT ELEVATED HOB FOR ASPIRATION PRECAUTION. SAFETY MEASURE IN PLACE. CALL LIGHT WITHIN REACH, WILL CONTINUE TO MONITOR.
[2022-02-26] MEDS: CEFTRIAXONE 1 G in IV D5W 50 ML IV SCH (20:17)
[2022-02-26 20:43] VITALS: BP 120/70
[2022-02-26] MEDS: SIMVASTATIN 10 MG TABLET PO SCH (21:07)
[2022-02-26] MEDS: MAGNESIUM HYDROXIDE 30 ML UDC PO SCH (21:07)
[2022-02-26] MEDS: DIVALPROEX SODIUM 500 MG TABLET.DR PO SCH (21:07)
[2022-02-26] MEDS: TRAZODONE 50 MG TABLET PO SCH (21:07)
[2022-02-27 00:49] VITALS: BP 120/70
[2022-02-27] MEDS: METOPROLOL TARTRATE 25 MG TABLET PO SCH ×3 (05:47→21:05)
[2022-02-27 06:27] LABS: BASOPHILS % (AUTO) 0.2 % (0.0-2.0); HEMATOCRIT 35 % (33-45); HEMOGLOBIN 12.1 g/dL (11.5-14.8); LYMPHOCYTES # (AUTO) 1.1 K/uL (0.8-4.8); LYMPHOCYTES % (AUTO) 17.1 % (20.0-44.0); MEAN CORPUSCULAR HGB CONC 34 g/dl (31.0-36.0); MEAN CORPUSCULAR VOLUME 90 fL (82-100); MONOCYTES # (AUTO) 1.1 K/uL (0.1-1.30); MONOCYTES % (AUTO) 17.1 % (2.0-12.0); NEUTROPHILS # (AUTO) 4.4 K/uL (1.8-8.9); NEUTROPHILS % (AUTO) 65.6 % (43.0-81.0); PLATELET COUNT (AUTO) 268 K/uL (150-450); RED BLOOD CELL COUNT(AUTO) 3.94 MIL/uL (4.0-5.2); WHITE BLOOD COUNT (AUTO) 6.7 K/uL (4.3-11.0)
--- NOTE | 2022-02-27 06:35 | NUR ---
RN CLOSING NOTE PATIENT IN BED BUT EASY TO AROUSED A0X2 ON RM AIR DONTE WELL NO SIGN SOB/DISTRESS NOTED.BREATHING EVEN AND UNLABORED. IV ACCESS RFA 20G SL.PATENT AND INTACT.KEPT ELEVATED HOB FOR ASPIRATION PRECAUTION. SAFETY MEASURE IN PLACE. CALL LIGHT WITHIN REACH, WILL ENDORSED TO NEXT SHIFT
[2022-02-27 06:57] LABS: CALCIUM, SERUM 8.7 mg/dL (8.5-10.1); CREATININE 0.4 mg/dL (0.6-1.3); MAGNESIUM 1.9 mg/dL (1.8-2.4); PHOSPHORUS 2.8 mg/dL (2.5-4.9)
--- NOTE | 2022-02-27 07:25 | NUR ---
ms rn received pt on bed,oriented x1,confused at times,respirations even and unlabored,no sob noted, lungs are diminish,abdomen soft,positive bowel sounds,deneis pain at this time, all needs attended.
[2022-02-27 08:00] VITALS: BP 105/60
--- NOTE | 2022-02-27 08:30 | NUR ---
ms rn npo at this tiime,patient will have thoracentesis, today ,all needs attended.
[2022-02-27] MEDS: MORPHINE SULFATE INJ 2 MG/ML DISP.SYRIN IV PRN ×2 (10:11→17:22)
--- NOTE | 2022-02-27 11:00 | NUR ---
ms vanessa u/s tech came ,thoracentesis will be done tomorrow, po meds will be given later.
--- NOTE | 2022-02-27 12:30 | NUR ---
ms rn was seen by aline,ordered to put on tele, nsr at 90s ,on monitor , chapito aware
--- NOTE | 2022-02-27 13:07 | NUR ---
Notified both Dr. Rodríguez and Rad Dr. Song @ [phone] if procedure could be done tomorrow due to heavy work flow and they permitted this.
--- NOTE | 2022-02-27 13:09 | NUR ---
Notified both Dr. Rodríguez and Rad Dr. Song @ [phone] if US Guided Thoracentesis could be done tomorrow due to heavy work flow and they permitted this.
[2022-02-27] MEDS: CHOLECALCIFEROL 1,000 UNIT TABLET (VIT D3) PO SCH (13:15)
[2022-02-27] MEDS: DOCUSATE SODIUM 100 MG CAPSULE PO SCH (13:15)
[2022-02-27] MEDS: PANTOPRAZOLE 40 MG TABLET.DR PO SCH (13:15)
[2022-02-27] MEDS: DIVALPROEX SODIUM 250 MG TABLET.DR PO SCH (13:16)
[2022-02-27] MEDS: POLYETHYLENE GLYCOL 3350 17 GM POWD.PACK PO SCH (13:20)
[2022-02-27] MEDS: risperiDONE 1 MG TABLET PO SCH ×2 (13:20→17:18)
[2022-02-27 16:00] VITALS: BP 116/69
[2022-02-27] MEDS: ASPIRIN 81 MG TAB.CHEW PO SCH (17:17)
--- NOTE | 2022-02-27 18:00 | NUR ---
ms rn on bed, no distress noted,all needs attended.
--- NOTE | 2022-02-27 18:30 | NUR ---
ms rn on bed, no distress noted,all needs attended.
[2022-02-27 20:00] VITALS: BP 119/64
[2022-02-27 21:00] VITALS: BP 119/69
[2022-02-27] MEDS: DIVALPROEX SODIUM 500 MG TABLET.DR PO SCH (21:05)
[2022-02-27] MEDS: MAGNESIUM HYDROXIDE 30 ML UDC PO SCH (21:05)
[2022-02-27] MEDS: CEFTRIAXONE 1 G in IV D5W 50 ML IV SCH (21:05)
[2022-02-27] MEDS: SIMVASTATIN 10 MG TABLET PO SCH (21:05)
[2022-02-27] MEDS: TRAZODONE 50 MG TABLET PO SCH (21:05)
[2022-02-28] VITALS (9 sets, daily range): BP systolic 100–117; BP diastolic 59–87
[2022-02-28] MEDS: METOPROLOL TARTRATE 25 MG TABLET PO SCH ×3 (04:18→21:25)
--- NOTE | 2022-02-28 05:51 | NUR ---
ADMITTED FOR UTI AND PNA, STABLE ON ROOM AIR, DIMINISHED LUNG SOUNDS, NO COUGHING, NOT IN APPARENT PAIN, NON VERBAL AT THIS TIME, SINUS RHYTHM ON THE TELE. SOFT DIET, ABLE TO SWALLOW MEDICATIONS WITHOUT DIFFICULTY, GENERALIZED WEAKNESS, IVEY CATHETER DRAINING, CLEAR AND YELLOW URINE. ROCEPHIN FOR UTI, THORACENTESIS TODAY, CONSENT SIGNED.
[2022-02-28 07:22] LABS: CALCIUM, SERUM 8.9 mg/dL (8.5-10.1); CREATININE 0.4 mg/dL (0.6-1.3); PHOSPHORUS 3.1 mg/dL (2.5-4.9); POTASSIUM 4.2 mmol/L (3.5-5.1)
--- NOTE | 2022-02-28 07:53 | NUR ---
RN OPENING NOTES RECEIVED PATIENT ASLEEP IN BED, EASILY AROUSED, NO SIGNS OF ACUTE DISTRESS NOTED. ON ROOM AIR, NO SOB NOTED, BREATHING EVEN AND UNLABORED. ON TELE MONITOR CURRENTLY SHOWING SINUS RHYTHM, HR @82. NO S/SX OF PAIN. WITH IV ACCESS ON RIGHT FOREARM #20G, INTACT AND PATENT, SALINE LOCKED. SAFETY MEASURE IN PLACE, BED IN LOWEST AND LOCKED POSITION, SIDE RAILS UP X2, CALL LIGHT PLACED WITHIN EASY REACH. WILL CONTINUE TO MONITOR PATIENT.
[2022-02-28] MEDS: risperiDONE 1 MG TABLET PO SCH ×2 (08:11→17:08)
[2022-02-28] MEDS: DOCUSATE SODIUM 100 MG CAPSULE PO SCH (08:11)
[2022-02-28] MEDS: PANTOPRAZOLE 40 MG TABLET.DR PO SCH (08:11)
[2022-02-28] MEDS: CHOLECALCIFEROL 1,000 UNIT TABLET (VIT D3) PO SCH (08:12)
[2022-02-28] MEDS: DIVALPROEX SODIUM 250 MG TABLET.DR PO SCH (08:12)
[2022-02-28] MEDS: POLYETHYLENE GLYCOL 3350 17 GM POWD.PACK PO SCH (08:12)
[2022-02-28 09:21] LABS: BASOPHILS % (AUTO) 0.3 % (0.0-2.0); EOSINOPHILS % (AUTO) 0.1 % (0.0-6.0); HEMATOCRIT 37 % (33-45); HEMOGLOBIN 12.4 g/dL (11.5-14.8); LYMPHOCYTES # (AUTO) 1.8 K/uL (0.8-4.8); LYMPHOCYTES % (AUTO) 24.9 % (20.0-44.0); MEAN CORPUSCULAR HGB CONC 33 g/dl (31.0-36.0); MEAN CORPUSCULAR VOLUME 92 fL (82-100); MONOCYTES # (AUTO) 1.9 K/uL (0.1-1.30); MONOCYTES % (AUTO) 26.3 % (2.0-12.0); NEUTROPHILS # (AUTO) 3.5 K/uL (1.8-8.9); NEUTROPHILS % (AUTO) 48.4 % (43.0-81.0); PLATELET COUNT (AUTO) 218 K/uL (150-450); RED BLOOD CELL COUNT(AUTO) 4.03 MIL/uL (4.0-5.2); WHITE BLOOD COUNT (AUTO) 7.2 K/uL (4.3-11.0)
[2022-02-28 10:04] LABS: LYMPHOCYTES % (MANUAL) 32 % (16-48); NEUTROPHILS % (MANUAL) 47 (42-76)
[2022-02-28 10:05] LABS: MONOCYTES % (MANUAL) 21 % (0-11.0)
--- NOTE | 2022-02-28 13:55 | NUR ---
RN NOTES S/P RIGHT THORACENTESIS BY DR. NEVAREZ. PATIENT TOLERATED PROCEDURE WELL. 950 ML OF PLEURAL FLUID REMOVED. SPECIMEN SENT TO LAB.
--- NOTE | 2022-02-28 14:40 | NUR ---
RN NOTES RECEIVED A CALL FROM DR. LLANES, AWARE OF CHEST X-RAY RESULTS POST THORACENTESIS. WITH NEW ORDER RECEIVED TO START PATIENT ON O2 @6LPM, REPEAT CHEST X-RAY @1700 AND IN AM, ORDERS CARRIED OUT.
[2022-02-28] MEDS: ACETAMINOPHEN 325 MG TABLET PO PRN (15:25)
[2022-02-28] MEDS: ASPIRIN 81 MG TAB.CHEW PO SCH (17:08)
--- NOTE | 2022-02-28 18:45 | NUR ---
RN CLOSING NOTES PATIENT ASLEEP IN BED, EASILY AROUSED, NO SIGNS OF ACUTE DISTRESS NOTED. S/P THORACENTESIS, DENIES ANY SOB. CURRENTLY ON O2 @6LPM VIA N/C, SPO2 @98%, BREATHING EVEN AND UNLABORED. ON TELE MONITOR CURRENTLY SHOWING SINUS RHYTHM, HR @83. WITH IV ACCESS ON RIGHT FOREARM #20G, INTACT AND PATENT, SALINE LOCKED. WITH F/C INTACT DRAINING CLEAR YELLOW URINE. SAFETY MEASURE IN PLACE, BED IN LOWEST AND LOCKED POSITION, SIDE RAILS UP X2, CALL LIGHT PLACED WITHIN EASY REACH. WILL ENDORSE TO NEXT SHIFT FOR CONTINUITY OF CARE.
--- NOTE | 2022-02-28 19:35 | NUR ---
RN OPENING NOTE PATIENT IN BED, AWAKE. PATIENT IS A/O X 2. PATIENT IS VERBALLY RESPONSIVE. PATIENT IS ON 6LPM VIA NASAL CANNULA, 98%. CORINNE SOB NOTED, NO CHEST PAIN. TELE MONITOR READS SR 91 BPM. PATIENT HAS A IVEY CATHETER PRESENT DRAINING VIA GRAVITY. PATIENT HAS A RFA 20 G- SL ONLY. S/P THORACENTESIS, IN AM. SAFETY MEASURES IN PLACE: BED LOCKED AND IN LOWEST POSITION, CALL LIGHT WITHIN REACH, SIDE RAILS UP. WILL MONITOR PATIENT CLOSELY.
[2022-02-28] MEDS: DIVALPROEX SODIUM 500 MG TABLET.DR PO SCH (21:24)
[2022-02-28] MEDS: CEFTRIAXONE 1 G in IV D5W 50 ML IV SCH (21:24)
[2022-02-28] MEDS: SIMVASTATIN 10 MG TABLET PO SCH (21:25)
[2022-02-28] MEDS: TRAZODONE 50 MG TABLET PO SCH (21:25)
[2022-02-28] MEDS: MAGNESIUM HYDROXIDE 30 ML UDC PO SCH (21:25)
[2022-03-01] VITALS: BP 109/61
[2022-03-01 04:00] VITALS: BP 123/66
[2022-03-01] MEDS: METOPROLOL TARTRATE 25 MG TABLET PO SCH ×3 (05:26→21:30)
[2022-03-01] MEDS: MORPHINE SULFATE INJ 2 MG/ML DISP.SYRIN IV PRN (05:32)
--- NOTE | 2022-03-01 05:38 | NUR ---
RN NOTE MORPHINE GIVEN TO PATIENT. PATIENT IS CRYING, WITH FACIAL GRIMACING. PATIENT IS COMPLAINING OF 9/10 PAIN. WILL REASSESS PAIN EFFECTIVENESS.
[2022-03-01 06:31] LABS: BASOPHILS % (AUTO) 0.3 % (0.0-2.0); HEMATOCRIT 34 % (33-45); HEMOGLOBIN 11.7 g/dL (11.5-14.8); LYMPHOCYTES # (AUTO) 0.9 K/uL (0.8-4.8); LYMPHOCYTES % (AUTO) 12.4 % (20.0-44.0); MEAN CORPUSCULAR HGB CONC 34 g/dl (31.0-36.0); MEAN CORPUSCULAR VOLUME 91 fL (82-100); MONOCYTES # (AUTO) 1.3 K/uL (0.1-1.30); MONOCYTES % (AUTO) 18.3 % (2.0-12.0); NEUTROPHILS # (AUTO) 4.9 K/uL (1.8-8.9); PLATELET COUNT (AUTO) 233 K/uL (150-450); RED BLOOD CELL COUNT(AUTO) 3.77 MIL/uL (4.0-5.2); WHITE BLOOD COUNT (AUTO) 7.1 K/uL (4.3-11.0)
--- NOTE | 2022-03-01 06:41 | NUR ---
RN CLOSING NOTE PATIENT IN BED, EYES CLOSED. PATIENT IS A/O X 1-2. RESPONDS VERBALLY WHEN ASKED. PATIENT IS ON 6LPM VIA NASAL CANNULA, 98%. PATIENT DID NOT HAVE ANY CHEST PAIN, SOB DURING THE SHIFT. TELE MONITOR READS SR 77 BPM. PATIENT HAS A IVEY CATHETER PRESENT DRAINING YELLOW URINE VIA GRAVITY. PATIENT HAS A RFA 20 G SALINE LOCKED ONLY. SAFETY MEASURES IN PLACE: BED LOCKED AND IN LOWEST POSITION, CALL LIGHT WITHIN REACH, SIDE RAILS UP. ALL NEEDS MET AND ATTENDED. ALL ORDERS CARRIED OUT. WILL ENDORSE TO DAY SHIFT NURSE FOR REED.
[2022-03-01 06:53] LABS: CALCIUM, SERUM 8.7 mg/dL (8.5-10.1); CREATININE 0.3 mg/dL (0.6-1.3); MAGNESIUM 1.9 mg/dL (1.8-2.4); PHOSPHORUS 2.9 mg/dL (2.5-4.9); POTASSIUM 4.1 mmol/L (3.5-5.1)
--- NOTE | 2022-03-01 07:30 | NUR ---
COMMISSARY CLERK OPENING NOTES PATIENT IN BED, EYES CLOSED. PATIENT IS A/O X 1-2. RESPONDS VERBALLY WHEN ASKED. PATIENT IS ON 6LPM VIA NASAL CANNULA, 98%. NO SOB DURING THE SHIFT. TELE MONITOR READS SR 76 BPM. PATIENT HAS A IVEY CATHETER PRESENT DRAINING YELLOW URINE VIA GRAVITY. PATIENT HAS A RFA 20 G SALINE LOCKED ONLY. SAFETY MEASURES IN PLACE: BED LOCKED AND IN LOWEST POSITION, CALL LIGHT WITHIN REACH, SIDE RAILS UP. WILL CONTINUE TO MONITOR PATIENT.
[2022-03-01] MEDS: CHOLECALCIFEROL 1,000 UNIT TABLET (VIT D3) PO SCH (08:32)
[2022-03-01] MEDS: DOCUSATE SODIUM 100 MG CAPSULE PO SCH (08:32)
[2022-03-01] MEDS: PANTOPRAZOLE 40 MG TABLET.DR PO SCH (08:32)
[2022-03-01] MEDS: POLYETHYLENE GLYCOL 3350 17 GM POWD.PACK PO SCH (08:32)
[2022-03-01] MEDS: DIVALPROEX SODIUM 250 MG TABLET.DR PO SCH (08:32)
[2022-03-01] MEDS: risperiDONE 1 MG TABLET PO SCH ×2 (08:32→17:02)
[2022-03-01 08:44] VITALS: BP 137/62
[2022-03-01] MEDS: ENOXAPARIN SODIUM 40 MG/0.4 ML DISP.SYRIN SQ SCH (11:00)
[2022-03-01 12:02] VITALS: BP 122/59
[2022-03-01 16:17] VITALS: BP 99/43
[2022-03-01] MEDS: ASPIRIN 81 MG TAB.CHEW PO SCH (17:02)
--- NOTE | 2022-03-01 18:51 | NUR ---
CLAIMS ADJUSTER CLOSING NOTES PATIENT IN BED, EYES CLOSED. PATIENT IS A/O X 1-2. ABLE TO RESPOND VERBALLY WHEN ASKED; DELAYED RESPONSES. PATIENT REMAINS ON 6LPM VIA NASAL CANNULA, 98%. NO SOB DURING THE SHIFT. TELE MONITOR READS SR 90 BPM. PATIENT HAS A IVEY CATHETER PRESENT DRAINING YELLOW URINE VIA GRAVITY. PATIENT HAS A RFA 20 G SALINE LOCKED ONLY. ALL NEEDS ATTENDED DURING THE DAY. SAFETY MEASURES IN PLACE: BED LOCKED AND IN LOWEST POSITION, CALL LIGHT WITHIN REACH, SIDE RAILS UP. WILL ENDORSE TO POWER SWITCHBOARD OPERATOR NURSE FOR REED.
--- NOTE | 2022-03-01 19:18 | NUR ---
RN OPENING NOTE PATIENT IN BED, AWAKE. PATIENT IS A/O X 1-2. RESPONDS VERBALLY WHEN ASKED. PATIENT IS ON 6LPM VIA NASAL CANNULA, 98%. PATIENT DENIES ANY CHEST PAIN OR SOB AT THIS TIME. TELE MONITOR READS SR 91 BPM. PATIENT HAS A VIEY CATHETER PRESENT DRAINING YELLOW URINE VIA GRAVITY. PATIENT HAS A RFA 20 G SALINE LOCKED ONLY. SAFETY MEASURES IN PLACE: BED LOCKED AND IN LOWEST POSITION, CALL LIGHT WITHIN REACH, SIDE RAILS UP. WILL MONITOR PATIENT CLOSELY.
[2022-03-01 20:00] VITALS: BP 108/71
[2022-03-01] MEDS: CEFTRIAXONE 1 G in IV D5W 50 ML IV SCH (21:29)
[2022-03-01] MEDS: DIVALPROEX SODIUM 500 MG TABLET.DR PO SCH (21:29)
[2022-03-01] MEDS: SIMVASTATIN 10 MG TABLET PO SCH (21:30)
[2022-03-01] MEDS: TRAZODONE 50 MG TABLET PO SCH (21:30)
[2022-03-01] MEDS: MAGNESIUM HYDROXIDE 30 ML UDC PO SCH (21:30)
[2022-03-02] VITALS: BP 16/54
[2022-03-02 04:00] VITALS: BP 102/54
[2022-03-02] MEDS: METOPROLOL TARTRATE 25 MG TABLET PO SCH ×3 (04:50→21:00)
[2022-03-02 06:40] LABS: BASOPHILS % (AUTO) 0.2 % (0.0-2.0); EOSINOPHILS % (AUTO) 0.3 % (0.0-6.0); HEMATOCRIT 34 % (33-45); HEMOGLOBIN 11.7 g/dL (11.5-14.8); LYMPHOCYTES # (AUTO) 1.3 K/uL (0.8-4.8); LYMPHOCYTES % (AUTO) 16.8 % (20.0-44.0); MEAN CORPUSCULAR HGB CONC 35 g/dl (31.0-36.0); MEAN CORPUSCULAR VOLUME 91 fL (82-100); MONOCYTES # (AUTO) 1.7 K/uL (0.1-1.30); MONOCYTES % (AUTO) 23.1 % (2.0-12.0); NEUTROPHILS # (AUTO) 4.5 K/uL (1.8-8.9); NEUTROPHILS % (AUTO) 59.6 % (43.0-81.0); PLATELET COUNT (AUTO) 231 K/uL (150-450); RED BLOOD CELL COUNT(AUTO) 3.72 MIL/uL (4.0-5.2); WHITE BLOOD COUNT (AUTO) 7.5 K/uL (4.3-11.0)
--- NOTE | 2022-03-02 07:01 | NUR ---
RN CLOSING NOTE PATIENT IN BED, EYES CLOSED. PATIENT IS A/O X 1-2. PATIENT IS VERBALLY RESPONSIVE WITH DELAYED SPEECH. PATIENT IS ON 6LPM VIA NASAL CANNULA, 100%. PATIENT DID NOT HAVE ANY CHEST PAIN, SOB DURING THE SHIFT. TELE MONITOR READS SR 93 BPM. PATIENT HAS A IVEY CATHETER PRESENT DRAINING YELLOW URINE VIA GRAVITY. PATIENT HAS A RFA 20 G SALINE LOCKED ONLY. SAFETY MEASURES IN PLACE: BED LOCKED AND IN LOWEST POSITION, CALL LIGHT WITHIN REACH, SIDE RAILS UP. ALL NEEDS MET AND ATTENDED. ALL ORDERS CARRIED OUT. WILL ENDORSE TO DAY SHIFT NURSE FOR REED.
--- NOTE | 2022-03-02 07:46 | NUR ---
RESIDENCY DIRECTOR OPENING NOTES PATIENT IN BED, EYES CLOSED. PATIENT IS A/O X 1-2. ABLE TO RESPOND VERBALLY WHEN ASKED; DELAYED RESPONSES. PATIENT ON 6LPM VIA NASAL CANNULA; BREATHING EVEN AND UNLABORED, NO SOB NOTED AT THIS TIME. TELE MONITOR READS SR 90 BPM. PATIENT HAS A IVEY CATHETER PRESENT DRAINING YELLOW URINE VIA GRAVITY. PATIENT HAS A RFA 20 G SALINE LOCKED ONLY. SAFETY MEASURES IN PLACE: BED LOCKED AND IN LOWEST POSITION, CALL LIGHT WITHIN REACH, SIDE RAILS UP. WILL CONTINUE TO MONITOR PATIENT.
[2022-03-02 08:00] VITALS: BP 110/74
[2022-03-02 08:14] LABS: CREATININE 0.3 mg/dL (0.6-1.3); POTASSIUM 4.2 mmol/L (3.5-5.1)
[2022-03-02 08:30] LABS: PHOSPHORUS 3.4 mg/dL (2.5-4.9)
[2022-03-02] MEDS: CHOLECALCIFEROL 1,000 UNIT TABLET (VIT D3) PO SCH (08:35)
[2022-03-02] MEDS: DIVALPROEX SODIUM 250 MG TABLET.DR PO SCH (08:35)
[2022-03-02] MEDS: PANTOPRAZOLE 40 MG TABLET.DR PO SCH (08:35)
[2022-03-02] MEDS: DOCUSATE SODIUM 100 MG CAPSULE PO SCH (08:35)
[2022-03-02] MEDS: POLYETHYLENE GLYCOL 3350 17 GM POWD.PACK PO SCH (08:35)
[2022-03-02] MEDS: risperiDONE 1 MG TABLET PO SCH ×2 (08:35→17:28)
[2022-03-02] MEDS: ENOXAPARIN SODIUM 40 MG/0.4 ML DISP.SYRIN SQ SCH (08:36)
[2022-03-02 09:02] LABS: BAND % (MANUAL) 2 % (0.0-5.0); LYMPHOCYTES % (MANUAL) 20 % (16-48); MONOCYTES % (MANUAL) 16 % (0-11.0); NEUTROPHILS % (MANUAL) 62 (42-76)
[2022-03-02] MEDS: ASPIRIN 81 MG TAB.CHEW PO SCH (17:28)
--- NOTE | 2022-03-02 18:39 | NUR ---
BRYOLOGIST CLOSING NOTES PATIENT IN BED, ASLEEP. PATIENT IS A/O X 1-2. ABLE TO RESPOND VERBALLY WHEN ASKED; DELAYED RESPONSES. PATIENT REMAINS ON 6LPM VIA NASAL CANNULA; BREATHING EVEN AND UNLABORED, NO SOB NOTED DURING SHIFT. TELE MONITOR READS SR 90S BPM. IVEY CATHETER PRESENT DRAINING YELLOW URINE VIA GRAVITY DURING THE DAY. PATIENT HAS A RFA 20 G SALINE LOCKED ONLY. PATIENT CLEAN, DRY AND REPOSITIONED. ALL NEEDS ATTENDED DURING THE DAY. SAFETY MEASURES IN PLACE: BED LOCKED AND IN LOWEST POSITION, CALL LIGHT WITHIN REACH, SIDE RAILS UP. WILL ENDORSE TO FLAKE DRIER NURSE.
--- NOTE | 2022-03-02 19:31 | NUR ---
RN OPENING NOTE PATIENT IN BED, AWAKE. PATIENT IS A/O X 1-2. RESPONDS VERBALLY WHEN ASKED. PATIENT IS ON 6LPM VIA NASAL CANNULA, 98%. PATIENT DENIES ANY CHEST PAIN OR SOB AT THIS TIME. TELE MONITOR READS SR 80s-90s BPM. PATIENT HAS A IVEY CATHETER PRESENT DRAINING YELLOW URINE VIA GRAVITY. PATIENT HAS A RFA 20 G S/L. SAFETY MEASURES IN PLACE: BED LOCKED AND IN LOWEST POSITION, CALL LIGHT WITHIN REACH, SIDE RAILS UP. WILL MONITOR PATIENT CLOSELY.
[2022-03-02 20:30] VITALS: BP 157/76
[2022-03-02] MEDS: MAGNESIUM HYDROXIDE 30 ML UDC PO SCH (21:08)
[2022-03-02] MEDS: CEFTRIAXONE 1 G in IV D5W 50 ML IV SCH (21:08)
[2022-03-02] MEDS: SIMVASTATIN 10 MG TABLET PO SCH (21:09)
[2022-03-02] MEDS: DIVALPROEX SODIUM 500 MG TABLET.DR PO SCH (21:10)
[2022-03-02] MEDS: TRAZODONE 50 MG TABLET PO SCH (21:10)
[2022-03-02] MEDS: MIRTAZAPINE 15 MG TABLET PO SCH (21:11)
[2022-03-03] VITALS (7 sets, daily range): BP systolic 102–125; BP diastolic 50–69
--- NOTE | 2022-03-03 01:00 | NUR ---
DECK OFFICER NOTES PATIENT TURNED AND REPOSITIONED; SKIN ASSESSMENT NOTED WORSENING L HEEL REDNESS/BRUISING/BLISTERING; PICTURES TAKEN AND PLACED IN CHART, CHARGE NURSE MADE AWARE, WOUND CONSULT ORDERED; EXTREMITY PROTECTED WITH MEPILEX AND OFFLOADED WITH PILLOWS, WILL CONT TO MONITOR
[2022-03-03] MEDS: METOPROLOL TARTRATE 25 MG TABLET PO SCH ×3 (05:00→22:03)
--- NOTE | 2022-03-03 06:40 | NUR ---
OPEN TENTER OPERATOR CLOSING NOTES PATIENT IN BED, AWAKE. PATIENT IS A/O X 1-2. RESPONDS VERBALLY WHEN ASKED. PATIENT IS ON 6LPM VIA NASAL CANNULA, SATTING 95%. PATIENT DENIES ANY CHEST PAIN OR SOB AT THIS TIME. TELE MONITOR READS SR 80s-90s BPM. PATIENT HAS A IVEY CATHETER PRESENT DRAINING LAYLA/YELLOW URINE VIA GRAVITY 550CC OUTPUT NOTED. PATIENT HAS A RFA 20 G S/L. EXTREMITIES OFFLOADED; SAFETY MEASURES IN PLACE: BED LOCKED AND IN LOWEST POSITION, CALL LIGHT WITHIN REACH, SIDE RAILS UP. WILL ENDORSE REED TO ONCOMING SHIFT
--- NOTE | 2022-03-03 07:08 | NUR ---
SMOKING PIPE COATER OPENING NOTES RECEIVED PATIENT IN BED SLEEPING. NO ACUTE SIGNS OF DISTRESS PATIENT IS A/O X 2, WITH DELAYED SPEECH. R FA 20 G SL PATENT AND INTACT WITH D5 NS AT 50 ML/HR. PATIENT IS CURRENTLY ON 6 LPM VIA NASAL CANNULA, NO C/O SOB NOTED AT THIS TIME. TELE MONITOR READS SINUS TACH [address] WITH CLEAR YELLOW URINE OUTPUT NOTED. SAFETY MEASURES IN PLACE: BED LOCKED AND IN LOWEST POSITION, CALL LIGHT WITHIN REACH, SIDE RAILS UP X2. WILL CONTINUE TO MONITOR PATIENT.
[2022-03-03] MEDS: DIVALPROEX SODIUM 250 MG TABLET.DR PO SCH (09:32)
[2022-03-03] MEDS: risperiDONE 1 MG TABLET PO SCH ×2 (09:32→17:23)
[2022-03-03] MEDS: PANTOPRAZOLE 40 MG TABLET.DR PO SCH (09:32)
[2022-03-03] MEDS: DOCUSATE SODIUM 100 MG CAPSULE PO SCH (09:32)
[2022-03-03] MEDS: CHOLECALCIFEROL 1,000 UNIT TABLET (VIT D3) PO SCH (09:32)
[2022-03-03] MEDS: ENOXAPARIN SODIUM 40 MG/0.4 ML DISP.SYRIN SQ SCH (09:33)
[2022-03-03] MEDS: MORPHINE SULFATE INJ 2 MG/ML DISP.SYRIN IV PRN ×2 (09:35→17:23)
--- NOTE | 2022-03-03 09:35 | NUR ---
RN NOTES PATIENT COMPLAINED OF 10/10 PAIN OF BOTH LEGS, PRN MORPHINE ADMINISTERED AT 0935. WILL CONTINUE TO MONITOR PATIENT.
[2022-03-03] MEDS: POLYETHYLENE GLYCOL 3350 17 GM POWD.PACK PO SCH (09:58)
--- NOTE | 2022-03-03 10:24 | NUR ---
WOUND CARE CONSULT: PT SEEN FOR BILATERAL HEEL INTACT DEEP TISSUE INJURIES. ON ADMISSION PT WAS NOTED TO HAVE DUSKY COLOR TO BILATERAL FEET. SACRAL INTACT DEEP TISSUE INJURY NOTED WITH SURROUNDING SCARRING (WHICH UPON REVIEW OF ADMISSION PHOTO WAS PRESENT ON ADMISSION). RECOMMENDATIONS MADE FOR SKIN PROTECTION. DISCUSSED WITH NURSING STAFF. FIRST STEP LOW AIRLOSS MATTRESS IS ON ORDER. SURGICAL AND DPM CONSULTS REQUESTED FROM DR SAMSON AND DR MARTIN. PT NOTED TO HAVE MULTIPLE CO-MORBIDITIES INCLUDING CHRONIC DEBILITATION, MALNUTRITION, RECENT PNEUMONIA, EPILEPSY, TIA, MALIGNANT NEOPLASM OF ESOPHAGUS, UTI AND PSYCHIATRIC DISORDERS. DUE TO MULTIPLE CO-MORBIDITIES, FURTHER SKIN BREAKDOWN MAY BE UNAVOIDABLE. MD IN AGREEMENT WITH PLAN OF CARE.
[2022-03-03] MEDS: ASPIRIN 81 MG TAB.CHEW PO SCH (17:23)
--- NOTE | 2022-03-03 17:23 | NUR ---
RN NOTES PATIENT COMPLAINED OF 9/10 PAIN OF BOTH LEGS, PRN MORPHINE ADMINISTERED AT 1723. WILL CONTINUE TO MONITOR PATIENT.
--- NOTE | 2022-03-03 18:34 | NUR ---
TUNNEL MINER CLOSING NOTES PATIENT IN BED SLEEPING. NO ACUTE SIGNS OF DISTRESS PATIENT IS A/O X 2, WITH DELAYED SPEECH. R FA 20 G SL PATENT AND INTACT WITH D5 NS AT 50 ML/HR. PATIENT IS STABLE ON 3 LPM VIA NASAL CANNULA, NO C/O SOB NOTED AT THIS TIME. TELE MONITOR READS SR [address] WITH CLEAR YELLOW URINE OUTPUT NOTED. ALL DUE MEDS GIVEN. SAFETY MEASURES MAINTAINED: BED LOCKED AND IN LOWEST POSITION, CALL LIGHT WITHIN REACH, SIDE RAILS UP. WILL ENDORSE TO NEXT SHIFT FOR REED.
[2022-03-03] MEDS: IV NS 0.9% 1,000 ML IV PRN (20:07)
[2022-03-03] MEDS: MAGNESIUM HYDROXIDE 30 ML UDC PO SCH (22:02)
[2022-03-03] MEDS: MIRTAZAPINE 15 MG TABLET PO SCH (22:03)
[2022-03-03] MEDS: SIMVASTATIN 10 MG TABLET PO SCH (22:03)
[2022-03-03] MEDS: TRAZODONE 50 MG TABLET PO SCH (22:04)
[2022-03-03] MEDS: DIVALPROEX SODIUM 125 MG CAP.SPRINK PO SCH (22:05)
--- NOTE | 2022-03-03 23:02 | NUR ---
MS/TELE/RN AT INITIAL SHIFT ROUNDING, PATIENT WAS SLEEPING, EASILY AROUSABLE,, NO APPARENT DISTRESS NOTED, CALL LIGHT IN REACH, FALL PRECAUTIONS PER PROTOCOL IMPLEMENTED, WILL MONITOR.
--- NOTE | 2022-03-03 23:05 | NUR ---
MS/TELE/RN ABLE TO ADMINISTER ALL HS MEDS AT 2200 PATIENT WAS AWAKE AND ALERT.
[2022-03-04] VITALS (7 sets, daily range): BP systolic 100–135; BP diastolic 56–67
--- NOTE | 2022-03-04 00:16 | NUR ---
MS/TELE/RN PATIENT IS SLEEPING, NO SIGNS OF DISTRESS NOTED, CALL LIGHT IN REACH, WILL CONTINUE TO MONITOR.
[2022-03-04] MEDS: IV NS 0.9% 1,000 ML IV PRN ×2 (05:39→15:22)
[2022-03-04] MEDS: METOPROLOL TARTRATE 25 MG TABLET PO SCH ×3 (05:47→20:54)
--- NOTE | 2022-03-04 05:58 | NUR ---
MS/TELE/RN PATIENT IS AWAKE BUT STILL SLEEPY, APPEARS COMFORTABLE, NO SIGNS OF DISTRESS NOTED, CALL LIGHT IN REACH, ALL NEEDS ATTENDED AT THIS TIME, WILL CONTINUE TO MONITOR.
[2022-03-04] MEDS: PANTOPRAZOLE 40 MG TABLET.DR PO SCH (07:26)
--- NOTE | 2022-03-04 07:30 | NUR ---
HOTEL SALES MANAGER OPENING NOTES: RECEIVED PATIENT IN BED SLEEPING, EASILY AROUSED WITH STIMULI. A/O X 2, NO SOB OR CARDIAC DISTRESS NOTED, AFEBRILE AND ON ROOM AIR AND TOLERATING WELL. ON TELE MONITOR WITH CURRENT READING OF SINUS RHYTHM 75BPM. KEPT RESTED AND COMFORTABLE. SAFETY PRECAUTIONS MAINTAINED: BED IN LOCKED AND LOWEST POSITION, SIDE RAILS UP X 2, CALL LIGHT IN EASY REACH FOR HELP/ASSISTANCE. WILL MONITOR ACCORDINGLY.
[2022-03-04] MEDS: DIVALPROEX SODIUM 125 MG CAP.SPRINK PO SCH ×2 (08:21→21:07)
[2022-03-04] MEDS: ENOXAPARIN SODIUM 40 MG/0.4 ML DISP.SYRIN SQ SCH (08:21)
[2022-03-04] MEDS: POLYETHYLENE GLYCOL 3350 17 GM POWD.PACK PO SCH (08:21)
[2022-03-04] MEDS: CHOLECALCIFEROL 1,000 UNIT TABLET (VIT D3) PO SCH (08:22)
[2022-03-04] MEDS: risperiDONE 1 MG TABLET PO SCH ×2 (08:22→16:13)
[2022-03-04] MEDS: DOCUSATE SODIUM 100 MG CAPSULE PO SCH (08:22)
--- NOTE | 2022-03-04 08:30 | NUR ---
RN NOTES: PATIENT VERY SLEEPY AND ONLY ATE PUDDING FOR BREAKFAST, CRUSHED MEDS AND PATIENT TOLERATED WELL.
--- NOTE | 2022-03-04 12:30 | NUR ---
RN NOTES: PATIENT HAD LUNCH AND TOLERATED 50%.
[2022-03-04] MEDS: ASPIRIN 81 MG TAB.CHEW PO SCH (17:35)
[2022-03-04] MEDS: ENSURE ENLIVE CHOC 237 ML CAN PO SCH (17:46)
--- NOTE | 2022-03-04 19:20 | NUR ---
GEAR AND SPLINE GRINDER CLOSING NOTES: PATIENT IN BED AWAKE A/O X 4, NO SOB OR CARDIAC DISTRESS NOTED, AFEBRILE AND ON O2 INHALATION @ 2LPM VIA NC AND TOLERATING WELL. ON TELE MONITOR WITH CURRENT READING OF SINUS RHYTHM 74BPM. IV ACCESS ON RIGHT HAND G#20 WITH NS @100ML/HR AND INFUSING WELL. KEPT RESTED AND COMFORTABLE. SAFETY PRECAUTIONS MAINTAINED: BED IN LOCKED AND LOWEST POSITION, SIDE RAILS UP X 2, CALL LIGHT IN EASY REACH FOR HELP/ASSISTANCE. WILL MONITOR ACCORDINGLY. ENDORSED TO NEXT SHIFT FOR REED.
--- NOTE | 2022-03-04 19:25 | NUR ---
RN NOTE PT RESTING IN BED, EASILY AROUSABLE, A/OX3. RESPIRATIONS EVEN/UNLABORED WITH O2 @2LPM VIA NC. IV SITE: R-FA #20G INTACT/PATENT, RUNNING NS @100ML/HR. TELE MONITOR READING SR, HR 93. PT IN NO ACUTE DISTRESS. SAFETY MEASURES IN PLACE. WILL CONT TO MONITOR.
[2022-03-04] MEDS: SIMVASTATIN 10 MG TABLET PO SCH (21:07)
[2022-03-04] MEDS: MIRTAZAPINE 15 MG TABLET PO SCH (21:07)
[2022-03-04] MEDS: TRAZODONE 50 MG TABLET PO SCH (21:07)
[2022-03-04] MEDS: MAGNESIUM HYDROXIDE 30 ML UDC PO SCH (21:16)
[2022-03-05] VITALS (7 sets, daily range): BP systolic 95–128; BP diastolic 51–76
[2022-03-05] MEDS: IV NS 0.9% 1,000 ML IV PRN (01:14)
[2022-03-05] MEDS: METOPROLOL TARTRATE 25 MG TABLET PO SCH ×3 (05:00→20:08)
[2022-03-05 06:25] LABS: CALCIUM, SERUM 8.6 mg/dL (8.5-10.1); CREATININE 0.3 mg/dL (0.6-1.3); POTASSIUM 4.2 mmol/L (3.5-5.1)
--- NOTE | 2022-03-05 07:01 | NUR ---
RN NOTE PT RESTING IN BED, EASILY AROUSABLE TO STIMULI. DENIES PAIN. RESPIRATIONS EVEN/UNLABORED. CONT ON O2 @2LPM. CONT IVF NS @100ML/HR. TELE MONITOR READING SR, HR 77. F/C DRAINING CLEAR YELLOW URINE, OUTPUT 1400 THIS SHIFT. PT IN NO ACUTE DISTRESS. SAFETY MEASURES MAINTAINED.
[2022-03-05] MEDS: ENSURE ENLIVE CHOC 237 ML CAN PO SCH ×2 (07:45→16:55)
[2022-03-05] MEDS: PANTOPRAZOLE 40 MG TABLET.DR PO SCH (07:45)
--- NOTE | 2022-03-05 07:50 | NUR ---
LAMP MECHANIC OPENING NOTES: RECEIVED PATIENT IN BED SLEEPING, EASILY AWAKEN. A/O X 2. PATIENT ON OXYGEN THERAPY AT 2 LPM VIA NASAL CANNULA; NO SOB NOTED. ON TELE MONITOR WITH CURRENT READING OF SINUS RHYTHM [address] DRAINING CLEAR YELLOW URINE. SAFETY PRECAUTIONS MAINTAINED: BED IN LOCKED AND LOWEST POSITION, SIDE RAILS UP X 2, CALL LIGHT IN EASY REACH. WILL CONTINUE TO MONITOR PATIENT.
[2022-03-05] MEDS: DIVALPROEX SODIUM 125 MG CAP.SPRINK PO SCH ×2 (08:48→21:08)
[2022-03-05] MEDS: risperiDONE 1 MG TABLET PO SCH ×2 (08:48→17:02)
[2022-03-05] MEDS: CHOLECALCIFEROL 1,000 UNIT TABLET (VIT D3) PO SCH (08:48)
[2022-03-05] MEDS: DOCUSATE SODIUM 100 MG CAPSULE PO SCH (08:48)
[2022-03-05] MEDS: POLYETHYLENE GLYCOL 3350 17 GM POWD.PACK PO SCH (08:48)
[2022-03-05] MEDS: ENOXAPARIN SODIUM 40 MG/0.4 ML DISP.SYRIN SQ SCH (08:51)
[2022-03-05] MEDS: ASPIRIN 81 MG TAB.CHEW PO SCH (17:02)
--- NOTE | 2022-03-05 18:42 | NUR ---
METAL ENGINEERING PROCESS WORKER CLOSING NOTES: PATIENT REMAINS IN BED AWAKE, A/O X 3. PATIENT ON OXYGEN THERAPY AT 2 LPM VIA NASAL CANNULA; NO SOB NOTED DURING SHIFT. ON TELE MONITOR WITH CURRENT READING OF SINUS RHYTHM TO ST. IVEY CATH IN PLACE DRAINING CLEAR YELLOW URINE. ALL NEEDS ATTENDED DURING THE DAY. SAFETY PRECAUTIONS MAINTAINED: BED IN LOCKED AND LOWEST POSITION, SIDE RAILS UP X 2, CALL LIGHT IN EASY REACH. WILL ENDORSE TO ACID RECOVERY OPERATOR NURSE FOR REED.
--- NOTE | 2022-03-05 19:07 | NUR ---
PLUMBER CUB OPENING NOTE RECEIVED PT AWAKE IN BED. A/O X2 AND ABLE TO MAKE NEEDS KNOWN. PT ON 2 LPM VIA NC, SATURATING WELL. NO SOB OR S/S OF RESPIRATORY DISTRESS. BREATHING EVEN AND UNLABORED. ON EXTERNAL STATISTICAL CLERK ADVERTISING READING SR. IVEY CATH IN PLACE DRAINING CLEAR YELLOW URINE. SAFETY PRECAUTIONS IN PLACE. BED IN LOWEST LOCKED POSITION, HOB ELEVATED, SIDE RAILS UP X3, AND CALL LIGHT AND TABLE WITHIN REACH. ALL NEEDS MET AT THIS TIME.
[2022-03-05] MEDS: MAGNESIUM HYDROXIDE 30 ML UDC PO SCH (21:07)
[2022-03-05] MEDS: SIMVASTATIN 10 MG TABLET PO SCH (21:07)
[2022-03-05] MEDS: TRAZODONE 50 MG TABLET PO SCH (21:08)
[2022-03-05] MEDS: MIRTAZAPINE 15 MG TABLET PO SCH (21:08)
[2022-03-06] VITALS: BP 105/51
[2022-03-06 04:00] VITALS: BP 116/45
[2022-03-06 04:22] VITALS: BP 116/45
[2022-03-06] MEDS: METOPROLOL TARTRATE 25 MG TABLET PO SCH (04:23)
--- NOTE | 2022-03-06 06:41 | NUR ---
ROCK STAR CLOSING NOTE PT AWAKE IN BED. A/O X2 AND ABLE TO MAKE NEEDS KNOWN. PT ON 2 LPM VIA NC, SATURATING WELL. NO SOB OR S/S OF RESPIRATORY DISTRESS. BREATHING EVEN AND UNLABORED. ON EXTERNAL CONTROL VALVE TECHNICIAN READING SR [address] DRAINING CLEAR YELLOW URINE. ALL DUE MEDS GIVEN ORDERED. SAFETY PRECAUTIONS IN PLACE AT ALL TIMES. BED IN LOWEST LOCKED POSITION, HOB ELEVATED, SIDE RAILS UP X3, AND CALL LIGHT AND TABLE WITHIN REACH. ALL NEEDS MET AT THIS TIME AND WILL ENDORSE TO ONCOMING NURSE FOR REED.
--- NOTE | 2022-03-06 07:30 | NUR ---
TEA TREE FARMER OPENING NOTES RECEIVED PATIENT IN BED, A/O X2. PATIENT ON 2 LPM VIA NC, SATURATING WELL. NO SOB OR RESPIRATORY DISTRESS NOTED WITH BREATHING EVEN AND UNLABORED. CODE STATUS-DNR. ON EXTERNAL PRESIDENT PRACTICING UROLOGIST READING SR 73 BPM AT THIS TIME. IVEY CATH IN PLACE DRAINING CLEAR YELLOW URINE. NO IV ACCESS AT THIS TIME. SAFETY PRECAUTIONS IN PLACE. BED IN LOWEST LOCKED POSITION, HOB ELEVATED, SIDE RAILS UP X3, AND CALL LIGHT AND TABLE WITHIN REACH. WILL CONTINUE TO MONITOR
--- NOTE | 2022-03-06 07:39 | NUR ---
PATIENT FOUND RESTING COMFORTABLY ON 2 L NC WITH SAT OF 97%. NO SIGN OF DISTRESS NOTED. Addendum: 03/06/22 at 0740 by MARÍA NOEL RT Amended: Links added.
[2022-03-06 08:00] VITALS: BP 106/53
[2022-03-06] MEDS: PANTOPRAZOLE 40 MG TABLET.DR PO SCH (08:12)
[2022-03-06] MEDS: POLYETHYLENE GLYCOL 3350 17 GM POWD.PACK PO SCH (08:12)
[2022-03-06] MEDS: DIVALPROEX SODIUM 125 MG CAP.SPRINK PO SCH (08:12)
[2022-03-06] MEDS: risperiDONE 1 MG TABLET PO SCH ×2 (08:12→17:05)
[2022-03-06] MEDS: DOCUSATE SODIUM 100 MG CAPSULE PO SCH (08:12)
[2022-03-06] MEDS: CHOLECALCIFEROL 1,000 UNIT TABLET (VIT D3) PO SCH (08:12)
[2022-03-06] MEDS: ENOXAPARIN SODIUM 40 MG/0.4 ML DISP.SYRIN SQ SCH (08:13)
[2022-03-06] MEDS: ENSURE ENLIVE CHOC 237 ML CAN PO SCH ×2 (08:26→17:06)
[2022-03-06] MEDS ORDERED: LACT-54 PO (12:22)
[2022-03-06] MEDS ORDERED: DIVA125C2 PO ×2 (12:22)
[2022-03-06] MEDS ORDERED: MIRT-121 PO (12:22)
--- NOTE | 2022-03-06 13:30 | NUR ---
RN NOTES PATIENT BP IS 97/57 WITH HEART RATE OF 116. METOPROLOL NOT GIVEN.
[2022-03-06 16:00] VITALS: BP 109/70
[2022-03-06] MEDS: ASPIRIN 81 MG TAB.CHEW PO SCH (17:05)
--- NOTE | 2022-03-06 18:31 | NUR ---
CLERK GUIDE NOTES PATIENT MEDICALLY STABLE FOR DISCHARGE. VSS. REPORT GIVEN TO DANA BRIAN AT [facility]. DISCHARGE INSTRUCTIONS PROVIDED TO BOTH ASSOCIATE SALES AND PATIENT. EXIT CARE PACKET PROVIDED. NO BELONGINGS WITH PATIENT. WOUNDS DOCUMENTED. ALL DOCUMENTS SIGNED BY SECOND RN. IVEY CATH KEPT IN PLACE. NO IV ACCESS. PATIENT LEFT HOSPITAL IN AMBULANCE ACCOMPANIED BY 2 EMT.
[2022-03-06] MEDS ORDERED: METOPROLOL TARTRATE 25 MG TABLET PO SCH (21:00)
== END 2022-03-06 18:45 | DRG 177 ==
LOC: ER 18:55 → MED 21:48 → TELE 02-27 14:01 → MED 03-06 11:00
PROVIDERS: ADMIT Internal Medicine; ATTEND Nurse Practitioner Acute Care
PROC: 0W993ZZ Drainage of Right Pleural Cavity, Percutaneous Approach (ICD-10-PCS; principal; 2022-03-02)
DX: J15.6 Pneumonia due to other Gram-negative bacteria (principal); J96.01 Acute respiratory failure with hypoxia; G93.41 Metabolic encephalopathy; N39.0 Urinary tract infection, site not specified; E44.0 Moderate protein-calorie malnutrition; D68.59 Other primary thrombophilia; I47.1 Supraventricular tachycardia; J90 Pleural effusion, not elsewhere classified; J93.9 Pneumothorax, unspecified; E22.2 Syndrome of inappropriate secretion of antidiuretic hormone; E87.3 Alkalosis; J15.9 Unspecified bacterial pneumonia; E86.0 Dehydration; Z86.73 Personal history of transient ischemic attack (TIA), and cerebral infarction without residual deficits; Z20.822 Contact with and (suspected) exposure to COVID-19; E78.5 Hyperlipidemia, unspecified; F03.90 Unspecified dementia, unspecified severity, without behavioral disturbance, psychotic disturbance, mood disturbance, and anxiety; E88.09 Other disorders of plasma-protein metabolism, not elsewhere classified; G43.909 Migraine, unspecified, not intractable, without status migrainosus; G40.909 Epilepsy, unspecified, not intractable, without status epilepticus; K21.9 Gastro-esophageal reflux disease without esophagitis; R26.9 Unspecified abnormalities of gait and mobility; F20.9 Schizophrenia, unspecified; F32.A Depression, unspecified; F41.9 Anxiety disorder, unspecified; F29 Unspecified psychosis not due to a substance or known physiological condition; H52.4 Presbyopia; H26.9 Unspecified cataract; K44.9 Diaphragmatic hernia without obstruction or gangrene; Z88.2 Allergy status to sulfonamides; Z88.8 Allergy status to other drugs, medicaments and biological substances; Z79.82 Long term (current) use of aspirin; Z79.51 Long term (current) use of inhaled steroids; Z79.899 Other long term (current) drug therapy; I10 Essential (primary) hypertension; Z85.01 Personal history of malignant neoplasm of esophagus; E86.1 Hypovolemia; R63.1 Polydipsia; T43.505A Adverse effect of unspecified antipsychotics and neuroleptics, initial encounter; Y92.9 Unspecified place or not applicable; F39 Unspecified mood [affective] disorder; L89.626 Pressure-induced deep tissue damage of left heel; L89.616 Pressure-induced deep tissue damage of right heel; Y95 Nosocomial condition; L89.156 Pressure-induced deep tissue damage of sacral region
CPT/HCPCS: 36415; 71045-TC; 71250-TC; 80048-TC; 80053-TC; 81001; 82533; 83615-TC; 83735-TC; 83970; 84100-TC; 84155-TC; 84300-TC; 84443-TC; 84550-TC; 85025-TC; 85610-TC; 85730-TC; 87040-TC; 87070-TC; 87075-TC; 87081-TC; 87086-TC; 87102-TC; 89051-TC; 92526; 92611-TC; 93970-TC; 94799-TC; 97112-TC; 97530-TC; C9803; G0378; J0456; J0696; J1644; J1650; J2270; J3475; J7030; J7050; J7060

== ENCOUNTER 2022-04-11 14:21 | Inpatient (IN) | payer MEDICARE, OTHER ==
[~2022-04-11] VITALS: Ht 170.2 cm; Wt 61.7 kg
[~2022-04-11 14:21] MED LIST changes: -AMOX-430 PO; +DIVA125C2 PO; +LACT-54 PO; +MIRT-121 PO
--- NOTE | 2022-04-11 14:24 | NUR ---
SCHUYLER 80 FROM [facility] FOR SOB 82% ON RA, 89% ON 15LPM. TO ER BED 5, HOOKED TO SPEEDER HAND, NOTED SINUS TACHYCARDIA, CHANGED TO HOSP GOWN, WARM BLANKET PROVIDED. ON NON-REBREATHER MASK AT 15LPM O2, O2 SATURATION AT 89%. PATIENT DNT, FOCUSED-ONLY TREATMENT. AWAITING MD SHEARER. Addendum: 04/11/22 at 1848 by TESSA SCHUYLER 80 FROM [facility] FOR SOB 82% ON RA, 89% ON 15LPM. TO ER BED 5, HOOKED TO SPEEDER HAND, NOTED SINUS TACHYCARDIA, CHANGED TO HOSP GOWN, WARM BLANKET PROVIDED. ON NON-REBREATHER MASK AT 15LPM O2, O2 SATURATION AT 89%. PATIENT DNR, COMFORT FOCUSED TREATMENT. AWAITING MD SHEARER.
--- NOTE | 2022-04-11 14:40 | NUR ---
COVID SWAB DONE AND SENT TO LAB
[2022-04-11] MEDS ORDERED: ASCO-352 PO (14:41)
[2022-04-11] MEDS ORDERED: FURO-145 PO (14:41)
[2022-04-11] MEDS ORDERED: AMIN30LI27 PO (14:41)
[2022-04-11] MEDS ORDERED: MIRT-90 PO (14:41)
[2022-04-11] MEDS ORDERED: MULT-447 PO (14:41)
[2022-04-11] MEDS ORDERED: CALC-1143 PO (14:41)
--- NOTE | 2022-04-11 14:45 | NUR ---
URINE COLLECTED AND SENT TO LAB
--- NOTE | 2022-04-11 14:45 | NUR ---
SALINE LOCK ESTABLISHED, BLOOD DRAWN, AND SENT TO LAB
--- NOTE | 2022-04-11 15:05 | NUR ---
DR CHIU AT BEDSIDE
--- NOTE | 2022-04-11 15:17 | NUR ---
MOVE SHEET SUBMITTED.
[2022-04-11 15:22] LABS: BASOPHILS % (AUTO) 0.3 % (0.0-2.0); HEMATOCRIT 40 % (33-45); LYMPHOCYTES # (AUTO) 0.7 K/uL (0.8-4.8); LYMPHOCYTES % (AUTO) 5.9 % (20.0-44.0); MEAN CORPUSCULAR HGB CONC 33 g/dl (31.0-36.0); MEAN CORPUSCULAR VOLUME 91 fL (82-100); MONOCYTES % (AUTO) 7.8 % (2.0-12.0); NEUTROPHILS # (AUTO) 10.7 K/uL (1.8-8.9); PLATELET COUNT (AUTO) 349 K/uL (150-450); RED BLOOD CELL COUNT(AUTO) 4.37 MIL/uL (4.0-5.2); WHITE BLOOD COUNT (AUTO) 12.4 K/uL (4.3-11.0)
[2022-04-11 15:30] LABS: BILIRUBIN,URINE SMALL (NEGATIVE); COLOR,URINE YELLOW (YELLOW); LEUKOCYTE ESTERASE ,URINE MODERATE (NEGATIVE); NITRITE, URINE POSITIVE (NEGATIVE); PROTEIN,URINE 30 mg/dl (NEGATIVE); UGLUCOSE 100 MG/DL mg/dL (NEGATIVE); UROBILINOGEN,URINE >=8.0 EU/dL (0.2)
[2022-04-11] MEDS ORDERED: VANCOMYCIN 1 GM in IV D5W 250 ML IV ONE (15:30)
[2022-04-11] MEDS ORDERED: CEFEPIME 1 GM in IV D5W 50 ML IV ONE (15:30)
[2022-04-11] MEDS ORDERED: IV NS 0.9% 1,000 ML BAG IV ONE (15:30)
[2022-04-11 15:43] LABS: RBC,URINE 51-80 /HPF (0-2); WBC,URINE 21-50 /HPF (0-3)
[2022-04-11 15:44] LABS: BACTERIA,URINE 3+ /HPF (None Seen); MUCUS,URINE Few /LPF (None Seen)
--- NOTE | 2022-04-11 16:26 | NUR ---
[facility] [phone]
[2022-04-11 16:55] LABS: CALCIUM, SERUM 6.3 mg/dL (8.5-10.1); CARBON DIOXIDE 24 mmol/L (21-32); CHLORIDE 108 mmol/L (98-107); CREATININE 0.4 mg/dL (0.6-1.3); GLUCOSE 94 mg/dL (74-106); POTASSIUM 3.2 mmol/L (3.5-5.1); SODIUM SERUM 139 mmol/L (136-145); UREA NITROGEN, BLOOD 16 mg/dL (7-18)
[2022-04-11 17:02] LABS: ALANINE AMINOTRANSFERASE < 6 U/L (12-78); ALBUMIN 1.6 g/dL (3.4-5.0); ALKALINE PHOSPHATASE 70 U/L (46-116); ASPARTATE AMINOTRANSFERASE 9 U/L (15-37); BILIRUBIN,DIRECT 0.2 mg/dL (0.0-0.2); BILIRUBIN,TOTAL 0.4 mg/dL (0.2-1.0); TOTAL PROTEIN, SERUM 4.2 g/dL (6.4-8.2)
--- NOTE | 2022-04-11 17:53 | NUR ---
[facility] CALLED INFANTRY ASSAULTMAN PAGED.
--- NOTE | 2022-04-11 19:28 | NUR ---
RECEIVED PATIENT AAOX1. WAITING TO BE ADMITTED AT FLOOR. CAME WITH CC OF SOB. PATIENT WITH NC AT 5LPM SATURATING AT 98%, WITH PERIPHERAL LINE ON LEFT HAND G22, RIGHT HAND 620. PATIENT RESPONDS TO NON VERBAL STIMULI. WILL CONTINUE TO MONITOR.
[2022-04-11] MEDS ORDERED: CEFTRIAXONE 1GM BAG (ER ONLY) 1 GM/50 ML PIGGYBACK IV SCH (20:30)
[2022-04-11] MEDS ORDERED: ACETAMINOPHEN 325 MG TABLET PO PRN (20:30)
[2022-04-11] MEDS: ASPIRIN 81 MG TAB.CHEW PO SCH (20:30)
[2022-04-11] MEDS ORDERED: ONDANSETRON HCL/PF 4 MG/2 ML VIAL IVP PRN (20:30)
[2022-04-11] MEDS: ASCORBIC ACID 500 MG TABLET PO SCH (20:30)
[2022-04-11] MEDS ORDERED: Z GUARD REMEDY 4 OZ OINT TP PRN (20:30)
[2022-04-11] MEDS: risperiDONE 0.25 MG TABLET PO SCH (20:30)
[2022-04-11] MEDS: METHOCARBAMOL (750MG) 750 MG TABLET PO SCH (21:00)
[2022-04-11] MEDS: METOPROLOL TARTRATE 25 MG TABLET PO SCH (21:00)
--- NOTE | 2022-04-11 21:56 | NUR ---
PATIENT'S HR 154BPM IN RECENT EKG. GOSIA HOLGUIN WANTS TO PUSH ADENOSINE 6MG. PRE AND POST STRIPS OBTAIN WHILE GIVING ADENOSINE WITH DR CHIU AT BEDSIDE. 2156 HR - 154BPM 2157 HR - 91BPM 2103 HR - 103BPM
[2022-04-11] MEDS ORDERED: ADENOSINE 6 MG/2 ML VIAL IVP ONE (22:00)
[2022-04-11] MEDS: TRAZODONE 50 MG TABLET PO SCH (22:00)
[2022-04-11] MEDS: SIMVASTATIN 10 MG TABLET PO SCH (22:00)
[2022-04-11] MEDS: MIRTAZAPINE 15 MG TABLET PO SCH (22:00)
[2022-04-11] MEDS: DIVALPROEX SODIUM 500 MG TABLET.DR PO SCH (22:00)
[2022-04-11] MEDS ORDERED: POTASSIUM CL. PREMIX PERIPHER. 50 ML ONE ×2 (22:09→23:15)
[2022-04-11] MEDS: POTASSIUM CL. PREMIX PERIPHER. 50 ML IV SCH ×2 (22:15→23:15)
--- NOTE | 2022-04-11 22:15 | NUR ---
KCL 10MEQ/50ML STARTED AND TO RUN FOR 1 HOUR.
[2022-04-11] MEDS ORDERED: CEFTRIAXONE 1 G VIAL ONE (22:27)
--- NOTE | 2022-04-11 22:30 | NUR ---
IV ROCEPHIN STARTED ON RIGHT HAND G20. END TIME 2300H
[2022-04-11] MEDS ORDERED: ENOXAPARIN SODIUM 40 MG/0.4 ML DISP.SYRIN SQ ONE (22:57)
[2022-04-11] MEDS: ENOXAPARIN SODIUM 40 MG/0.4 ML DISP.SYRIN SQ SCH (23:00)
--- NOTE | 2022-04-11 23:05 | NUR ---
INFORMED VOLUNTEER SERVICES MANAGER EZIO THAT PATIENT IS TOO DROWSY. OPENS EYES BUT ATTENTION SPAN IS >5 SECS. I WILL HOLD NIGHT ORAL MEDS FOR NOW. LATEST V/S RELAYED TO HER.
--- NOTE | 2022-04-11 23:05 | NUR ---
GHAZAL MONSON MADE AWARE
--- NOTE | 2022-04-11 23:15 | NUR ---
2ND BAG OF KCL 10MEQ/50 ML STARTED. END TIME 0015H
--- NOTE | 2022-04-11 23:34 | NUR ---
Margaret barrett in [facility] - 04/11/22 at 2352 by JULIANNA BROUGHT BACK FROM CT DEPT
--- NOTE | 2022-04-11 23:51 | NUR ---
WARM BLANKETS OFFERED.
[2022-04-12] MEDS: METOPROLOL TARTRATE 25 MG TABLET PO SCH ×3 (05:00→21:00)
[2022-04-12] MEDS: METHOCARBAMOL (750MG) 750 MG TABLET PO SCH ×3 (05:00→21:00)
--- NOTE | 2022-04-12 05:37 | NUR ---
room assignment: 120.1 after 0800
[2022-04-12 06:30] LABS: CALCIUM, SERUM 7.2 mg/dL (8.5-10.1); CREATININE 0.3 mg/dL (0.6-1.3); MAGNESIUM 1.5 mg/dL (1.8-2.4); PHOSPHORUS 2.3 mg/dL (2.5-4.9); POTASSIUM 3.1 mmol/L (3.5-5.1)
[2022-04-12 06:42] LABS: BASOPHILS % (AUTO) 0.2 % (0.0-2.0); HEMATOCRIT 31 % (33-45); HEMOGLOBIN 10.2 g/dL (11.5-14.8); LYMPHOCYTES # (AUTO) 1.2 K/uL (0.8-4.8); MEAN CORPUSCULAR HGB CONC 33 g/dl (31.0-36.0); MEAN CORPUSCULAR VOLUME 91 fL (82-100); MONOCYTES # (AUTO) 0.9 K/uL (0.1-1.30); MONOCYTES % (AUTO) 8.3 % (2.0-12.0); NEUTROPHILS % (AUTO) 80.5 % (43.0-81.0); PLATELET COUNT (AUTO) 238 K/uL (150-450); RED BLOOD CELL COUNT(AUTO) 3.35 MIL/uL (4.0-5.2); WHITE BLOOD COUNT (AUTO) 11.2 K/uL (4.3-11.0)
--- NOTE | 2022-04-12 07:00 | NUR ---
SEEN BY GOSIA HOLGUIN AT BEDSIDE.
[2022-04-12] MEDS: PANTOPRAZOLE 40 MG TABLET.DR PO SCH (07:30)
--- NOTE | 2022-04-12 07:49 | NUR ---
REPORT GIVEN TO KYMBERLY FOR REED
--- NOTE | 2022-04-12 08:13 | NUR ---
PT TRANSFERRED TO TELE FLOOR WITH ACLS PROTOCOL IN PLACE
--- NOTE | 2022-04-12 08:40 | NUR ---
RN ADMITTING NOTES: RECEIVED PATENT FROM ED VIA [email or web address]. RECEIVED REPORT FROM DANA MONTAGUE. ADMITTING DIAGNOSIS OF SEPSIS SECONDARY TO PNEUMONIA. PATIENT IS WEAK, LETHARGIC, BUT AROUSABLE WHEN CALLED BY NAME. PATIENT ON 5L OF OXYGEN VIA N/C WITH SATURATION OF 91% NO SOB, NO RESPIRATORY DISTRESS NOTED AT THIS TIME. ON TELEMETRY MONITORING WITH HR OF 96. NO FACIAL GRIMACING AND NO S/S OF PAIN OR DISCOMFORT. IV ACCESS NOTED ON RIGHT HAND # 20 AND LEFT HAND # 22, PATENT AND INTACT, NO S/S OF INFILTRATION NOTED. AM CARE AND SKIN ASSESSMENT PERFORMED, REFER TO SKIN FLOWSHEET FOR DETAILS. SKIN WARM AND DRY TO TOUCH, AFEBRILE. CURRENTLY ON NPO STATUS. SAFETY MEASURES IMPLEMENTED. BED LOCKED IN LOWEST POSITION, HOB ELEVATED AT 30 DEGREES. SIDERAILS UP X 2. CALL LIGHT WITHIN REACH. WILL CONTINUE TO MONITOR AND REASSESS PATIENT THROUGHOUT SHIFT.
[2022-04-12] MEDS: CHOLECALCIFEROL 1,000 UNIT TABLET (VIT D3) PO SCH (09:00)
[2022-04-12] MEDS: DIVALPROEX SODIUM 250 MG TABLET.DR PO SCH (09:00)
[2022-04-12] MEDS: MULTIVIT W/MINERALS 1 TAB TABLET PO SCH (09:00)
[2022-04-12] MEDS: DOCUSATE SODIUM 100 MG CAPSULE PO SCH (09:00)
[2022-04-12] MEDS: CALCIUM CARBONATE 500 MG TAB.CHEW PO SCH (09:00)
[2022-04-12] MEDS: risperiDONE 0.25 MG TABLET PO SCH ×2 (09:00→17:00)
[2022-04-12] MEDS: POTASSIUM CHLORIDE 20 MEQ TAB.PRT.SR PO SCH ×3 (10:00→12:00)
--- NOTE | 2022-04-12 10:15 | NUR ---
RN NOTES: NOTED PATIENT DESAT TO 77%, APPLIED PATIENT WITH NON REBREATHER MASK. PATIENT NOTED WITH CONGESTION. OXYGEN SATURATION WENT TO 88-90%. RT CALLED IMMEDIATELY TO REASSESS PATIENT
--- NOTE | 2022-04-12 10:37 | NUR ---
RT NOTE PATIENT FOUND ON NON REBREATHER WITH SPO2 92% AND SOB. DIMINISHED BREATH SOUNDS ON THE LEFT LOBE, CLEAR ON THE RIGHT. NT SUCTIONED LARGE THICK YELLOW SECRETIONS. PLACED ON NASAL CANNULA 4L SPO2 97% WITH NO SOB. NURSE AWARE. MONITOR PATIENT THROUGHOUT SHIFT.
[2022-04-12 10:45] LABS: THYROID STIMULATING HORMONE 4.389 uIU/mL (0.358-3.74)
[2022-04-12] MEDS: Magnesium 1GM/D5W 100ML PREMIX 100 ML IV SCH ×2 (11:00→12:06)
[2022-04-12] MEDS: CEFEPIME 2 GM in IV D5W 100 ML IV SCH ×2 (11:17→17:12)
[2022-04-12] MEDS: IV NS 0.9% 1,000 ML IV PRN (11:17)
[2022-04-12 12:00] VITALS: BP 115/60
[2022-04-12] MEDS ORDERED: POTASSIUM PHOSPHATE MM 15 MMOL in IV NS 0.9% 250 ML IV SCH (12:00)
[2022-04-12] MEDS: IPRATROPIUM NEB FS 0.5 MG/2.5 ML AMPUL.NEB NEB PRN (13:32)
[2022-04-12] MEDS: ALBUTEROL HALF STRENGTH 1.25 MG/3 ML VIAL.NEB NEB PRN (13:32)
[2022-04-12] MEDS ORDERED: Magnesium 1GM/D5W 100ML PREMIX 100 ML IV SCH (14:00)
[2022-04-12 16:00] VITALS: BP 113/56
[2022-04-12] MEDS ORDERED: Sodium Phosphate 15 MMOL in IV NS 0.9% 245 ML IV SCH (17:00)
[2022-04-12] MEDS: ASPIRIN 81 MG TAB.CHEW PO SCH (17:03)
[2022-04-12] MEDS: ASCORBIC ACID 500 MG TABLET PO SCH (17:03)
--- NOTE | 2022-04-12 18:54 | NUR ---
RN CLOSING NOTES: PATIENT REMAINS IN BED, ASLEEP BUT AROUSABLE TO TOUCH AND SOUND. NO SOB NOTED AT THIS TIME. REMAINS ON OXYGEN AT 4L/MIN VIA N/C, TOLERATING WELL. BREATHING UNLABORED AND REGULAR. PATIENT IS SR ON SENIOR STORAGE ENGINEER RANGING FROM 83-96. DUPLEX SCAN DONE ON THE PATIENT, PENDING RESULT. MIDLINE ON LEFT UPPER ARM INTACT, INFUSING WITH NS AT 75 ML/HR. ALSO HAS SALINE LOCK ON RIGHT HAND # 20 AND LEFT HAND # 20. NO S/S OF INFILTRATION. TURNED AND REPOSITIONED EVERY 2 HOURS AND KEPT THE PATIENT CLEAN AND DRY AT ALL TIMES. PATIENT REMAINS NPO. BED LOCKED AND REMAIN IN LOWEST POSITION. SR UP X2, HOB KEPT ELEVATED. WILL ENDORSE TO INCLMING NURSE FOR CONTINUITY OF CARE.
[2022-04-12 20:00] VITALS: BP 142/69
--- NOTE | 2022-04-12 21:21 | NUR ---
COMFORT/RN SPOKE TO PHARMACY RE: MAGNESIUM 2 BAGS IV ORDERED BY DR. BALDERAS, PER PHARMACIST, THE PATIENT GOT THE 2 BAGS.
[2022-04-12] MEDS: MIRTAZAPINE 15 MG TABLET PO SCH (22:00)
[2022-04-12] MEDS: SIMVASTATIN 10 MG TABLET PO SCH (22:00)
[2022-04-12] MEDS: DIVALPROEX SODIUM 500 MG TABLET.DR PO SCH (22:00)
[2022-04-12] MEDS: TRAZODONE 50 MG TABLET PO SCH (22:00)
[2022-04-12] MEDS: ENOXAPARIN SODIUM 40 MG/0.4 ML DISP.SYRIN SQ SCH (22:35)
[2022-04-13] VITALS: BP 144/74
[2022-04-13] MEDS: CEFEPIME 2 GM in IV D5W 100 ML IV SCH ×3 (01:28→17:36)
[2022-04-13 04:00] VITALS: BP 150/77
[2022-04-13] MEDS: IV NS 0.9% 1,000 ML IV PRN ×2 (04:25→17:35)
[2022-04-13] MEDS: METOPROLOL TARTRATE 25 MG TABLET PO SCH ×3 (05:00→21:00)
[2022-04-13] MEDS: METHOCARBAMOL (750MG) 750 MG TABLET PO SCH ×3 (05:00→21:22)
--- NOTE | 2022-04-13 06:56 | NUR ---
COMFORT/RN OPATIENT IS STILL SLEEPING AT THIS TIME, APPEARS COMFORTABLE, NO SIGNS OF DISTRESS NOTED, CALL LIGHT IN REACH, ALL NEEDS ATTENDED AT THIS TIME, WILL CONTINUE TO MONITOR.
[2022-04-13 07:20] LABS: BASOPHILS % (AUTO) 0.4 % (0.0-2.0); EOSINOPHILS % (AUTO) 0.4 % (0.0-6.0); HEMATOCRIT 36 % (33-45); HEMOGLOBIN 11.6 g/dL (11.5-14.8); LYMPHOCYTES % (AUTO) 11.3 % (20.0-44.0); MEAN CORPUSCULAR HGB CONC 33 g/dl (31.0-36.0); MEAN CORPUSCULAR VOLUME 92 fL (82-100); MONOCYTES # (AUTO) 0.9 K/uL (0.1-1.30); MONOCYTES % (AUTO) 9.6 % (2.0-12.0); NEUTROPHILS # (AUTO) 7.1 K/uL (1.8-8.9); NEUTROPHILS % (AUTO) 78.3 % (43.0-81.0); PLATELET COUNT (AUTO) 276 K/uL (150-450); RED BLOOD CELL COUNT(AUTO) 3.88 MIL/uL (4.0-5.2); WHITE BLOOD COUNT (AUTO) 9.1 K/uL (4.3-11.0)
[2022-04-13] MEDS: PANTOPRAZOLE 40 MG TABLET.DR PO SCH (07:30)
[2022-04-13 08:00] VITALS: BP 126/51
[2022-04-13 08:38] LABS: ALBUMIN 2.1 g/dL (3.4-5.0); BILIRUBIN,TOTAL 0.5 mg/dL (0.2-1.0); CALCIUM, SERUM 8.4 mg/dL (8.5-10.1); CREATININE 0.2 mg/dL (0.6-1.3); MAGNESIUM 2.1 mg/dL (1.8-2.4); PHOSPHORUS 2.4 mg/dL (2.5-4.9); POTASSIUM 3.5 mmol/L (3.5-5.1); TOTAL PROTEIN, SERUM 5.8 g/dL (6.4-8.2)
[2022-04-13] MEDS: DIVALPROEX SODIUM 250 MG TABLET.DR PO SCH (09:00)
[2022-04-13] MEDS: DOCUSATE SODIUM 100 MG CAPSULE PO SCH (09:00)
[2022-04-13] MEDS: MULTIVIT W/MINERALS 1 TAB TABLET PO SCH (09:00)
[2022-04-13] MEDS: risperiDONE 0.25 MG TABLET PO SCH ×2 (09:00→17:24)
[2022-04-13] MEDS: CHOLECALCIFEROL 1,000 UNIT TABLET (VIT D3) PO SCH (09:00)
[2022-04-13] MEDS: CALCIUM CARBONATE 500 MG TAB.CHEW PO SCH (09:00)
--- NOTE | 2022-04-13 11:41 | NUR ---
WOUND CARE CONSULT: PT PRESENTS WITH AREAS OF DISCOLORATION TO MIDBACK AND POSTERIOR THIGHS, HEEL DISCOLORATION/SCARRING AND SACRAL DEEP TISSUE INJURY, ALL PRESENT ON ADMISSION. SURGICAL AND DPM CONSULTS CALLED TO DR SAMSON AND DR MARTIN. RECOMMENDATIONS MADE FOR SKIN PROTECTION. DISCUSSED WITH NURSING STAFF. MD IN AGREEMENT WITH PLAN OF CARE. [facility]. Addendum: 04/13/22 at 1143 by XUAN RIOS WNDNU Amended: Links added.
[2022-04-13 12:00] VITALS: BP 93/48
[2022-04-13 16:00] VITALS: BP 180/63
[2022-04-13] MEDS ORDERED: NEUTRA PHOS 1 POWD.PACKET PO ONE (16:30)
[2022-04-13] MEDS: ASPIRIN 81 MG TAB.CHEW PO SCH (17:24)
[2022-04-13] MEDS: ASCORBIC ACID 500 MG TABLET PO SCH (17:25)
--- NOTE | 2022-04-13 19:45 | NUR ---
GOLF COURSE EQUIPMENT OPERATOR OPENING NOTE RECEIVED PT RESTING IN BED, A/O X1. IN O2 VIA NC @ 3L. NOT IN RESPI DISTRESS. NO S/SX OF PAIN AT THIS TIME, NOTED WITH ZOHRA MIDLINE IN PLACE AND PATENT WITH IVF NS RUNNING @75/HR. SAFETY MEASURES MAINTAINED. CALL LIGHT WITHIN REACH, BED IN LOWEST AND LOCKED POSITION, WILL CONT TO MONITOR.
--- NOTE | 2022-04-13 19:51 | NUR ---
RN NOTE PT RESTING IN BED, CONT IN O2 VIA NC @ 3L. NOT IN RESPI DISTRESS. PT UPGRADED TO PUREE DIET THIS SHIFT. TOLERATED WELL. ATE 75% LUNCH AND DINNER. AM PM CARE RENDERED. DUE MEDS GIVEN. SAFETY MEASURES MAINTAINED. ZOHRA JESSI IN PLACE AND PATENT WITH IVF NS RUNNING @75/HR.
[2022-04-13 20:00] VITALS: BP 96/64
--- NOTE | 2022-04-13 21:20 | NUR ---
RN NOTE BP CHECKED AT 96/64 HR 84, INFORMED BRIAN ROLON NP, ORDERED TO HOLD LOPRESSOR PO FOR NOW AND CONTINUE TO MONITOR BP.
[2022-04-13] MEDS: SIMVASTATIN 10 MG TABLET PO SCH (21:22)
[2022-04-13] MEDS: TRAZODONE 50 MG TABLET PO SCH (21:22)
[2022-04-13] MEDS: MIRTAZAPINE 15 MG TABLET PO SCH (21:22)
[2022-04-13] MEDS: ENOXAPARIN SODIUM 40 MG/0.4 ML DISP.SYRIN SQ SCH (21:25)
[2022-04-13] MEDS: VALPROIC ACID 250 MG/5 ML UDC GT SCH (23:38)
[2022-04-13] MEDS: ACETYLCYSTEINE 10% SOLN 400 MG/4 ML VIAL NEB SCH (23:52)
[2022-04-14] VITALS: BP 107/50
--- NOTE | 2022-04-14 | NUR ---
RN NOTE CHECKED BP AT 117/64 HR 82. WILLCO Addendum: 04/14/22 at 0047 by NAIF CHAIDEZ RN RN NOTE CHECKED BP AT 117/64 HR 82. ALL DUE MEDS GIVEN. WILL CONTINUE TO MONITOR CLOSELY.
[2022-04-14] MEDS: CEFEPIME 2 GM in IV D5W 100 ML IV SCH ×2 (00:05→09:24)
[2022-04-14 04:00] VITALS: BP 124/59
[2022-04-14] MEDS: METHOCARBAMOL (750MG) 750 MG TABLET PO SCH ×3 (05:35→21:22)
[2022-04-14] MEDS: METOPROLOL TARTRATE 25 MG TABLET PO SCH ×3 (05:36→21:00)
--- NOTE | 2022-04-14 06:56 | NUR ---
BAND TACKER CLOSING NOTE NO SIGNIFICANT CHANGES THROUGHOUT THE SHIFT. PT RESTING IN BED, EASILY AROUSABLE TO TOUCH AND VOICE. A/O X2. ON O2 VIA NC @ 4L. TOLERATING WELL, NO COMPLAINTS OF PAIN AT THIS TIME. NOT IN RESPI DISTRESS. NOTED WITH ZOHRA MIDLINE WITH IVF NS RUNNING @75/HR. WITH IV ACCESS ON L WRIST AND R HAND INTACT, PATENT AND FLUSHES WELL. SAFETY MEASURES MAINTAINED THROUGHOUT THE SHIFT. ALL DUE MEDS GIVEN, KEPT DRY AND CLEAN, CALL LIGHT WITHIN REACH, BED IN LOWEST AND LOCKED POSITION, WILL ENDORSE TO AM SHIFT NURSE.
[2022-04-14] MEDS: ACETYLCYSTEINE 10% SOLN 400 MG/4 ML VIAL NEB SCH ×3 (07:13→23:04)
--- NOTE | 2022-04-14 07:30 | NUR ---
RN OPENING NOTE PATIENT IS IN BED ASLEEP BUT EASILY AROUSABLE, ALERT ORIENTED X 2 (PERSON AND PLACE). DENIES PAIN, BREATHING UNLABORED AND NOT IN ANY FORM OF DISTRESS. SINUS RHYTHM ON POLL WATCHER. WITH LEFT UPPER ARM MIDLINE INTACT AND PATENT, INFUSING WITH NS AT 75 ML/HR. WITH RIGHT AND LEFT WRIST IV SALINE LOCK INTACT AND PATENT. BED IS LOCKED IN LOWEST POSITION, 3 SIDE RAILS UP, CALL LIGHT WITHIN REACH. WILL CONTINUE TO MONITOR THROUGHOUT SHIFT.
[2022-04-14 08:00] VITALS: BP 132/65
[2022-04-14 08:12] LABS: BASOPHILS % (AUTO) 0.7 % (0.0-2.0); EOSINOPHILS % (AUTO) 3.5 % (0.0-6.0); HEMATOCRIT 33 % (33-45); HEMOGLOBIN 10.9 g/dL (11.5-14.8); LYMPHOCYTES # (AUTO) 1.1 K/uL (0.8-4.8); LYMPHOCYTES % (AUTO) 18.8 % (20.0-44.0); MEAN CORPUSCULAR HGB CONC 33 g/dl (31.0-36.0); MEAN CORPUSCULAR VOLUME 91 fL (82-100); MONOCYTES # (AUTO) 0.7 K/uL (0.1-1.30); MONOCYTES % (AUTO) 13.1 % (2.0-12.0); NEUTROPHILS # (AUTO) 3.7 K/uL (1.8-8.9); NEUTROPHILS % (AUTO) 63.9 % (43.0-81.0); PLATELET COUNT (AUTO) 153 K/uL (150-450); WHITE BLOOD COUNT (AUTO) 5.7 K/uL (4.3-11.0)
[2022-04-14 08:30] LABS: CALCIUM, SERUM 8.3 mg/dL (8.5-10.1); CREATININE 0.2 mg/dL (0.6-1.3); PHOSPHORUS 2.7 mg/dL (2.5-4.9); POTASSIUM 3.1 mmol/L (3.5-5.1)
[2022-04-14] MEDS: PANTOPRAZOLE 40 MG TABLET.DR PO SCH (09:20)
[2022-04-14] MEDS: VALPROIC ACID 250 MG/5 ML UDC GT SCH ×2 (09:20→21:22)
[2022-04-14] MEDS: DOCUSATE SODIUM 100 MG CAPSULE PO SCH (09:20)
[2022-04-14] MEDS: MULTIVIT W/MINERALS 1 TAB TABLET PO SCH (09:20)
[2022-04-14] MEDS: CHOLECALCIFEROL 1,000 UNIT TABLET (VIT D3) PO SCH (09:21)
[2022-04-14] MEDS: CALCIUM CARBONATE 500 MG TAB.CHEW PO SCH (09:21)
[2022-04-14] MEDS: risperiDONE 1 MG TABLET PO SCH ×2 (09:27→17:16)
[2022-04-14] MEDS: IV NS 0.9% 1,000 ML IV PRN (10:43)
[2022-04-14] MEDS: POTASSIUM CHLORIDE 20 MEQ TAB.PRT.SR PO SCH ×2 (10:51→11:48)
[2022-04-14 12:00] VITALS: BP 117/56
[2022-04-14] MEDS ORDERED: VANCOMYCIN 1 GM in IV D5W 250 ML IV SCH (15:00)
[2022-04-14 16:00] VITALS: BP 115/60
[2022-04-14] MEDS: MEROPENEM 1 G in IV NS 0.9% 100 ML IV SCH (17:16)
[2022-04-14] MEDS: ASPIRIN 81 MG TAB.CHEW PO SCH (17:16)
[2022-04-14] MEDS: ASCORBIC ACID 500 MG TABLET PO SCH (17:16)
--- NOTE | 2022-04-14 18:57 | NUR ---
RN CLOSING NOTE PATIENT IS RESTING COMFORTABLY IN BED AND REMAINED STABLE THROUGHOUT SHIFT. DENIES PAIN, BREATHING UNLABORED, AND NOT IN ANY FORM OF DISTRESS. STILL ON O2 VIA NASAL CANNULA AT 4L/MIN. SINUS RHYTHM ON SEEING EYE DOG TRAINER. LEFT UPPER ARM MIDLINE INTACT AND PATENT. RIGHT AND LEFT WRIST IV SALINE LOCK INTACT AND PATENT. PATIENT WAS KEPT COMFORTABLE THROUGHOUT SHIFT. BED IS LOCKED IN LOWEST POSITION, 3 SIDE RAILS UP, CALL LIGHT WITHIN REACH. WILL ENDORSE TO FULL TIME NURSE.
[2022-04-14 20:00] VITALS: BP 93/44
[2022-04-14] MEDS: TRAZODONE 50 MG TABLET PO SCH (21:22)
[2022-04-14] MEDS: SIMVASTATIN 10 MG TABLET PO SCH (21:22)
[2022-04-14] MEDS: MIRTAZAPINE 15 MG TABLET PO SCH (21:23)
[2022-04-14] MEDS: ENOXAPARIN SODIUM 40 MG/0.4 ML DISP.SYRIN SQ SCH (21:23)
[2022-04-14] MEDS: ALBUTEROL HALF STRENGTH 1.25 MG/3 ML VIAL.NEB NEB PRN (23:04)
[2022-04-14] MEDS: IPRATROPIUM NEB FS 0.5 MG/2.5 ML AMPUL.NEB NEB PRN (23:04)
[2022-04-15] VITALS: BP 117/62
[2022-04-15] MEDS: IV NS 0.9% 1,000 ML IV PRN (00:32)
[2022-04-15] MEDS ORDERED: VANCOMYCIN 0.75 GM in IV D5W 250 ML IV SCH (03:00)
[2022-04-15 04:00] VITALS: BP 100/59
[2022-04-15] MEDS: METOPROLOL TARTRATE 25 MG TABLET PO SCH ×2 (05:00→12:28)
[2022-04-15] MEDS: MEROPENEM 1 G in IV NS 0.9% 100 ML IV SCH (05:40)
[2022-04-15] MEDS: METHOCARBAMOL (750MG) 750 MG TABLET PO SCH ×2 (05:40→12:27)
--- NOTE | 2022-04-15 06:47 | NUR ---
RN CLOSING NOTE, PATIENT ASLEEP AT THIS TIME, BREATHING EVEN AND UNLABORED, NO SOB/ACUTE DISTRESS NOTED DURING THE NIGHT, ON O2 VIA NASAL CANNULA AT 4L/MIN, SINUS RHYTHM ON DIGITAL MEASUREMENT ADVISOR, LEFT UPPER ARM MIDLINE INTACT AND PATENT, RIGHT AND LEFT WRIST IV SALINE LOCK INTACT AND PATENT, 0.9% NS INFUSING WELL AND PATIENT TOLERATED WELL, KEPT DRY AND CLEAN AN REPOSITIONED Q2H AND PRN, STABLE DURING THE SHIFT, BED LOCKED IN LOWEST POSITION, 3 SIDE RAILS UP, CALL LIGHT WITHIN REACH, WILL ENDORSE CONTINUITY OF CARE TO ONCOMING NURSE.
[2022-04-15 07:23] LABS: BASOPHILS % (AUTO) 0.5 % (0.0-2.0); HEMATOCRIT 34 % (33-45); HEMOGLOBIN 11.3 g/dL (11.5-14.8); LYMPHOCYTES # (AUTO) 1.3 K/uL (0.8-4.8); LYMPHOCYTES % (AUTO) 25.8 % (20.0-44.0); MEAN CORPUSCULAR HGB CONC 33 g/dl (31.0-36.0); MEAN CORPUSCULAR VOLUME 90 fL (82-100); MONOCYTES # (AUTO) 0.9 K/uL (0.1-1.30); MONOCYTES % (AUTO) 18.5 % (2.0-12.0); NEUTROPHILS # (AUTO) 2.7 K/uL (1.8-8.9); NEUTROPHILS % (AUTO) 53.2 % (43.0-81.0); PLATELET COUNT (AUTO) 258 K/uL (150-450); RED BLOOD CELL COUNT(AUTO) 3.75 MIL/uL (4.0-5.2)
--- NOTE | 2022-04-15 07:51 | NUR ---
RN NOTE PATIENT ON NC 4L O2 SAT 100%. IV LINE ON RIGHT WRIST, LEFT WRIST, AND RIGHT UPPER ARM MIDLINE RUNNING NS AT 75 ML/HR. BED ON THE LOWEST POSITION, CALL LIGHT WITHIN THE REACH, AND 3 SIDES BED RAILS UP.
[2022-04-15] MEDS: ACETYLCYSTEINE 10% SOLN 400 MG/4 ML VIAL NEB SCH ×2 (07:52→14:33)
[2022-04-15 08:00] VITALS: BP 110/61
[2022-04-15] MEDS: CHOLECALCIFEROL 1,000 UNIT TABLET (VIT D3) PO SCH (08:07)
[2022-04-15] MEDS: MULTIVIT W/MINERALS 1 TAB TABLET PO SCH (08:07)
[2022-04-15] MEDS: VALPROIC ACID 250 MG/5 ML UDC GT SCH (08:07)
[2022-04-15] MEDS: CALCIUM CARBONATE 500 MG TAB.CHEW PO SCH (08:07)
[2022-04-15] MEDS: PANTOPRAZOLE 40 MG TABLET.DR PO SCH (08:08)
[2022-04-15] MEDS: DOCUSATE SODIUM 100 MG CAPSULE PO SCH (08:08)
[2022-04-15] MEDS: risperiDONE 1 MG TABLET PO SCH ×2 (08:08→17:49)
[2022-04-15 08:10] LABS: CALCIUM, SERUM 8.2 mg/dL (8.5-10.1); CREATININE 0.4 mg/dL (0.6-1.3); MAGNESIUM 1.8 mg/dL (1.8-2.4); PHOSPHORUS 2.4 mg/dL (2.5-4.9); POTASSIUM 3.6 mmol/L (3.5-5.1)
[2022-04-15] MEDS ORDERED: POTASSIUM CHLORIDE 20 MEQ POWDER PACKET PO SCH (10:00)
[2022-04-15 12:00] VITALS: BP 113/66
[2022-04-15] MEDS ORDERED: AMOXICILLIN TRIHYDRATE 500 MG CAPSULE PO SCH (14:00)
[2022-04-15] MEDS ORDERED: LEVOFLOXACIN (250MG) 250 MG TABLET PO SCH (14:00)
[2022-04-15] MEDS ORDERED: AMOXICILLIN TRIHYDRATE 250 MG CAPSULE PO SCH ×2 (14:19→14:20)
[2022-04-15 16:00] VITALS: BP 101/72
[2022-04-15 16:06] LABS: BAND % (MANUAL) 3 % (0.0-5.0); EOSINOPHILS % (MANUAL) 3 % (0-4); LYMPHOCYTES % (MANUAL) 29 % (16-48); MONOCYTES % (MANUAL) 15 % (0-11.0)
[2022-04-15 16:07] LABS: NEUTROPHILS % (MANUAL) 50 (42-76)
[2022-04-15] MEDS ORDERED: AMOX250C PO (16:25)
[2022-04-15] MEDS ORDERED: LEVO250T59 PO (16:25)
[2022-04-15] MEDS: ASCORBIC ACID 500 MG TABLET PO SCH (17:49)
[2022-04-15] MEDS: ASPIRIN 81 MG TAB.CHEW PO SCH (17:49)
== END 2022-04-15 19:45 | DRG 177 ==
LOC: ER 14:25 → TRANSITION 20:59 → MEDSG1 04-12 05:39 → TELE1 04-12 08:25 → UNDODISIN 04-15 18:56
PROVIDERS: ADMIT Nurse Practitioner Acute Care; ATTEND Registered Nurse
PROC: 05HC33Z Insertion of Infusion Device into Left Basilic Vein, Percutaneous Approach (ICD-10-PCS; principal; 2022-04-12)
DX: J15.6 Pneumonia due to other Gram-negative bacteria (principal); G93.41 Metabolic encephalopathy; J96.21 Acute and chronic respiratory failure with hypoxia; N39.0 Urinary tract infection, site not specified; D68.59 Other primary thrombophilia; J90 Pleural effusion, not elsewhere classified; E44.0 Moderate protein-calorie malnutrition; J98.11 Atelectasis; R64 Cachexia; I47.1 Supraventricular tachycardia; F03.90 Unspecified dementia, unspecified severity, without behavioral disturbance, psychotic disturbance, mood disturbance, and anxiety; E86.0 Dehydration; G40.909 Epilepsy, unspecified, not intractable, without status epilepticus; Z20.822 Contact with and (suspected) exposure to COVID-19; Z66 Do not resuscitate; I10 Essential (primary) hypertension; E78.5 Hyperlipidemia, unspecified; K21.9 Gastro-esophageal reflux disease without esophagitis; Z85.01 Personal history of malignant neoplasm of esophagus; H26.9 Unspecified cataract; Z88.6 Allergy status to analgesic agent; Z88.5 Allergy status to narcotic agent; Z88.2 Allergy status to sulfonamides; Z88.8 Allergy status to other drugs, medicaments and biological substances; Z79.82 Long term (current) use of aspirin; Z79.51 Long term (current) use of inhaled steroids; Z79.899 Other long term (current) drug therapy; F29 Unspecified psychosis not due to a substance or known physiological condition; B96.89 Other specified bacterial agents as the cause of diseases classified elsewhere; F20.9 Schizophrenia, unspecified; F31.9 Bipolar disorder, unspecified; E87.6 Hypokalemia; E88.09 Other disorders of plasma-protein metabolism, not elsewhere classified; K44.9 Diaphragmatic hernia without obstruction or gangrene; Y95 Nosocomial condition; Z86.73 Personal history of transient ischemic attack (TIA), and cerebral infarction without residual deficits; L89.626 Pressure-induced deep tissue damage of left heel; L89.616 Pressure-induced deep tissue damage of right heel; M62.50 Muscle wasting and atrophy, not elsewhere classified, unspecified site; L89.116 Pressure-induced deep tissue damage of right upper back; L89.126 Pressure-induced deep tissue damage of left upper back; L89.156 Pressure-induced deep tissue damage of sacral region
CPT/HCPCS: 31720; 36415; 71045-TC; 80048-TC; 80053-TC; 80076-TC; 81001; 83605-TC; 83735-TC; 84100-TC; 84439-TC; 84443-TC; 84484-TC; 85025-TC; 85730-TC; 87040-TC; 87081-TC; 87086-TC; 87186-TC; 92526; 92611-TC; 93307-TC; 93970-TC; 94668-TC; 94799-TC; A6403; A9563; C9803; G0378; J0153; J0692; J0696; J1650; J2185; J2405; J3370; J3475; J3480; J3490; J7030; J7050; J7060

== ENCOUNTER 2023-06-30 13:45 | Inpatient (IN) | payer MEDICARE, OTHER ==
[~2023-06-30] VITALS: Ht 172.7 cm; Wt 67.1 kg
[~2023-06-30 13:45] MED LIST changes: +AMIN30LI27 PO; +AMOX250C PO; +ASCO-352 PO; +CALC-1143 PO; -Calcium Carb 600MG /Vit D PO; -DIVA125C2 PO; -LACT-54 PO; +LEVO250T59 PO; -MIRT-121 PO; +MIRT-90 PO; +MULT-447 PO; -ONDA4TAB5 PO
[2023-06-30] MEDS ORDERED: IBUPROFEN 400 MG TABLET ONE (14:22)
[2023-06-30] MEDS ORDERED: IBUPROFEN 400 MG TABLET PO ONE (14:30)
[2023-06-30] MEDS ORDERED: IBUP-1953 PO (15:50)
[2023-06-30] MEDS ORDERED: PETR113O TP (15:50)
[2023-06-30] MEDS ORDERED: FOLI0.8T3 PO (15:50)
[2023-06-30] MEDS ORDERED: MEGE40TA5 PO (15:50)
[2023-06-30] MEDS ORDERED: VALP250S4 PO (15:50)
[2023-06-30] MEDS ORDERED: OLAN2.5T3 PO (15:50)
[2023-06-30] MEDS ORDERED: ALLA266C2 TP (15:50)
[2023-06-30] MEDS ORDERED: FERR325T23 PO (15:50)
[2023-06-30] MEDS ORDERED: OMEP20CA15 PO (15:50)
[2023-06-30] MEDS ORDERED: CARB15DR EACHEYE (15:50)
[2023-06-30] MEDS ORDERED: IV NS 0.9% 1,000 ML BAG IV ONE (16:00)
[2023-06-30 16:16] LABS: BASOPHILS # (AUTO) 0.1 K/uL (0.0-0.2); BASOPHILS % (AUTO) 0.9 % (0.0-2.0); EOSINOPHILS # (AUTO) 0.1 K/uL (0.0-0.7); EOSINOPHILS % (AUTO) 1.6 % (0.0-6.0); HEMATOCRIT 32 % (33-45); HEMOGLOBIN 10.7 g/dL (11.5-14.8); LYMPHOCYTES # (AUTO) 1.6 K/uL (0.8-4.8); LYMPHOCYTES % (AUTO) 22.1 % (20.0-44.0); MEAN CORPUSCULAR HEMOGLOBIN 30 PG (26.0-33.0); MEAN CORPUSCULAR HGB CONC 33 g/dl (31.0-36.0); MEAN CORPUSCULAR VOLUME 92 fL (82-100); MONOCYTES # (AUTO) 0.8 K/uL (0.1-1.30); MONOCYTES % (AUTO) 11.5 % (2.0-12.0); NEUTROPHILS # (AUTO) 4.6 K/uL (1.8-8.9); NEUTROPHILS % (AUTO) 63.9 % (43.0-81.0); PLATELET COUNT (AUTO) 304 K/uL (150-450); RED BLOOD CELL COUNT(AUTO) 3.53 MIL/uL (4.0-5.2); RED CELL DISTRIBUTION WIDTH 13.1 % (11.5-15.0); WHITE BLOOD COUNT (AUTO) 7.2 K/uL (4.3-11.0)
[2023-06-30 16:35] LABS: CALCIUM, SERUM 8.7 mg/dL (8.5-10.1); CARBON DIOXIDE 25 mmol/L (21-32); CHLORIDE 98 mmol/L (98-107); CREATININE 0.5 mg/dL (0.6-1.3); GLUCOSE 101 mg/dL (74-106); POTASSIUM 4.2 mmol/L (3.5-5.1); SODIUM SERUM 131 mmol/L (136-145); UREA NITROGEN, BLOOD 19 mg/dL (7-18)
[2023-06-30 16:54] LABS: ALANINE AMINOTRANSFERASE 13 U/L (12-78); ALBUMIN 2.8 g/dL (3.4-5.0); ALKALINE PHOSPHATASE 76 U/L (46-116); ASPARTATE AMINOTRANSFERASE 16 U/L (15-37); BILIRUBIN,DIRECT 0.1 mg/dL (0.0-0.2); BILIRUBIN,TOTAL 0.3 mg/dL (0.2-1.0); TOTAL PROTEIN, SERUM 6.2 g/dL (6.4-8.2)
[2023-06-30 17:00] LABS: INR 1.03 (0.91-1.10); PARTIAL THROMBOPLASTIN TIME 26.4 SEC (24.3-34.3); PROTHROMBIN TIME 10.9 SECS (9.2-11.1)
[2023-06-30 18:15] VITALS: BP 98/80; TEMP 98.2; O2SAT 98
[2023-06-30] MEDS ORDERED: MAG HYDROX/AL HYDROX/SIMETH 30 ML UDC PO PRN (18:30)
[2023-06-30] MEDS ORDERED: MAGNESIUM HYDROXIDE 30 ML UDC PO PRN ×2 (18:30)
[2023-06-30] MEDS ORDERED: ZOLPIDEM TARTRATE 5 MG TABLET PO PRN (18:30)
[2023-06-30] MEDS ORDERED: BISACODYL SUPP (10 MG) 10 MG/SUPP.RECT SUPP.RECT RC PRN (18:30)
[2023-06-30] MEDS ORDERED: NA PHOS,M-B/NA PHOS,DI-BA 1 EA ENEMA RC PRN (18:30)
[2023-06-30] MEDS ORDERED: ONDANSETRON HCL/PF 4 MG/2 ML VIAL IVP PRN (18:30)
[2023-06-30] MEDS ORDERED: Z GUARD REMEDY 4 OZ OINT TP PRN (18:30)
[2023-06-30] MEDS ORDERED: ALBUTEROL FS 2.5 MG/0.5 ML VIAL.NEB IH PRN (19:30)
[2023-06-30] MEDS: IV NS 0.9% 1,000 ML IV PRN (19:45)
[2023-06-30 20:00] VITALS: BP 89/49; TEMP 99.5; O2SAT 100
[2023-06-30] MEDS: VALPROIC ACID 250 MG/5 ML UDC PO SCH (20:26)
[2023-06-30] MEDS: ENOXAPARIN SODIUM 40 MG/0.4 ML DISP.SYRIN SQ SCH (20:27)
[2023-06-30] MEDS: METOPROLOL TARTRATE 25 MG TABLET PO SCH (20:33)
[2023-06-30 21:07] VITALS: BP 89/49; TEMP 99.5; O2SAT 100
[2023-06-30] MEDS: MIRTAZAPINE 15 MG TABLET PO SCH (21:15)
[2023-06-30] MEDS: TRAZODONE 50 MG TABLET PO SCH (21:16)
[2023-06-30 21:30] VITALS: BP 94/57; O2SAT 100
[2023-07-01] VITALS: BP 113/65; TEMP 98.8; O2SAT 100
[2023-07-01] MEDS: METOPROLOL TARTRATE 25 MG TABLET PO SCH ×3 (05:24→21:00)
[2023-07-01 05:53] LABS: BASOPHILS # (AUTO) 0.1 K/uL (0.0-0.2); BASOPHILS % (AUTO) 2.6 % (0.0-2.0); EOSINOPHILS # (AUTO) 0.2 K/uL (0.0-0.7); EOSINOPHILS % (AUTO) 3.3 % (0.0-6.0); HEMATOCRIT 39 % (33-45); HEMOGLOBIN 12.4 g/dL (11.5-14.8); LYMPHOCYTES # (AUTO) 1.5 K/uL (0.8-4.8); LYMPHOCYTES % (AUTO) 26.7 % (20.0-44.0); MEAN CORPUSCULAR HEMOGLOBIN 31 PG (26.0-33.0); MEAN CORPUSCULAR HGB CONC 32 g/dl (31.0-36.0); MEAN CORPUSCULAR VOLUME 97 fL (82-100); MONOCYTES # (AUTO) 0.8 K/uL (0.1-1.30); MONOCYTES % (AUTO) 13.8 % (2.0-12.0); NEUTROPHILS % (AUTO) 53.6 % (43.0-81.0); PLATELET COUNT (AUTO) 247 K/uL (150-450); RED BLOOD CELL COUNT(AUTO) 4.05 MIL/uL (4.0-5.2); WHITE BLOOD COUNT (AUTO) 5.7 K/uL (4.3-11.0)
[2023-07-01 06:25] LABS: CALCIUM, SERUM 8.2 mg/dL (8.5-10.1); CREATININE 0.4 mg/dL (0.6-1.3); MAGNESIUM 2.4 mg/dL (1.8-2.4); PHOSPHORUS 3.7 mg/dL (2.5-4.9); POTASSIUM 4.4 mmol/L (3.5-5.1)
[2023-07-01] MEDS: IV NS 0.9% 1,000 ML IV PRN ×2 (06:38→20:43)
[2023-07-01 07:00] VITALS: BP 109/46; TEMP 97.3; O2SAT 100
[2023-07-01 07:17] LABS: THYROID STIMULATING HORMONE 5.359 uIU/mL (0.358-3.74)
[2023-07-01] MEDS: MEGESTROL ACETATE 40 MG TABLET PO SCH ×2 (08:22→17:01)
[2023-07-01] MEDS: VALPROIC ACID 250 MG/5 ML UDC PO SCH ×2 (08:22→21:22)
[2023-07-01] MEDS: IBUPROFEN 400 MG TABLET PO SCH (08:22)
[2023-07-01] MEDS: FERROUS SULFATE (325 MG) 325 MG/TAB TABLET PO SCH (08:22)
[2023-07-01] MEDS: PANTOPRAZOLE 40 MG TABLET.DR PO SCH (08:22)
[2023-07-01] MEDS: DOCUSATE SODIUM 100 MG CAPSULE PO SCH (08:22)
[2023-07-01] MEDS: ASCORBIC ACID 500 MG TABLET PO SCH (08:22)
[2023-07-01] MEDS: CALCIUM CARBONATE (1250) 500 MG TABLET PO SCH (08:22)
[2023-07-01] MEDS: FOLIC ACID 1 MG TABLET PO SCH (08:22)
[2023-07-01] MEDS: OLANZAPINE 2.5 MG TABLET PO SCH ×3 (08:22→17:01)
[2023-07-01] MEDS: VITAMINS A AND D 56.7 GM TUBE TP SCH (08:23)
[2023-07-01] MEDS ORDERED: Medication Not On Formulary EA (Allantoin (Remedy Zguard 2 Oz Oint) 2 OZ) TP SCH (09:00)
[2023-07-01] MEDS ORDERED: Medication Not On Formulary EA (Cranberry Extract (Cranberry) 850 MG) PO SCH (09:00)
[2023-07-01 13:00] VITALS: BP_SYST 101; BP_SYST 103; BP_DIAS 44; BP_DIAS 75; TEMP 97.6; O2SAT 100; O2SAT 99
[2023-07-01] MEDS: IBUPROFEN 400 MG TABLET PO PRN ×2 (14:25→21:32)
[2023-07-01 16:00] VITALS: BP 101/44; TEMP 97.7; O2SAT 99
[2023-07-01] MEDS: PROSOURCE / PROSTAT (PYXIS) 30 ML UDC PO SCH (17:02)
[2023-07-01] MEDS: CHOLECALCIFEROL 1,000 UNIT TABLET (VIT D3) PO SCH (17:02)
[2023-07-01] MEDS: ASPIRIN 81 MG TAB.CHEW PO SCH (17:02)
[2023-07-01] MEDS: POLYVINYL ALCOHOL 15 ML BOTTLE EACHEYE SCH (17:02)
[2023-07-01 20:00] VITALS: BP 99/57; TEMP 98; O2SAT 98
[2023-07-01] MEDS: MIRTAZAPINE 15 MG TABLET PO SCH (21:23)
[2023-07-01] MEDS: TRAZODONE 50 MG TABLET PO SCH (21:23)
[2023-07-01] MEDS: ENOXAPARIN SODIUM 40 MG/0.4 ML DISP.SYRIN SQ SCH (21:24)
[2023-07-02] VITALS: BP 122/67; TEMP 98.1; O2SAT 98
[2023-07-02] MEDS: METOPROLOL TARTRATE 25 MG TABLET PO SCH ×3 (04:26→21:37)
[2023-07-02 05:51] LABS: BASOPHILS % (AUTO) 1.1 % (0.0-2.0); EOSINOPHILS # (AUTO) 0.2 K/uL (0.0-0.7); EOSINOPHILS % (AUTO) 3.9 % (0.0-6.0); HEMATOCRIT 32 % (33-45); HEMOGLOBIN 10.8 g/dL (11.5-14.8); LYMPHOCYTES # (AUTO) 1.5 K/uL (0.8-4.8); LYMPHOCYTES % (AUTO) 38.7 % (20.0-44.0); MEAN CORPUSCULAR HEMOGLOBIN 31 PG (26.0-33.0); MEAN CORPUSCULAR HGB CONC 34 g/dl (31.0-36.0); MEAN CORPUSCULAR VOLUME 92 fL (82-100); MONOCYTES # (AUTO) 0.4 K/uL (0.1-1.30); MONOCYTES % (AUTO) 9.9 % (2.0-12.0); NEUTROPHILS # (AUTO) 1.8 K/uL (1.8-8.9); NEUTROPHILS % (AUTO) 46.4 % (43.0-81.0); PLATELET COUNT (AUTO) 278 K/uL (150-450); RED BLOOD CELL COUNT(AUTO) 3.46 MIL/uL (4.0-5.2); WHITE BLOOD COUNT (AUTO) 3.9 K/uL (4.3-11.0)
[2023-07-02 06:09] LABS: CALCIUM, SERUM 8.1 mg/dL (8.5-10.1); CREATININE 0.3 mg/dL (0.6-1.3); MAGNESIUM 1.9 mg/dL (1.8-2.4)
[2023-07-02 07:00] VITALS: BP 111/72; TEMP 97.8; O2SAT 96
[2023-07-02 08:00] VITALS: BP 111/72; TEMP 97.8; O2SAT 96
[2023-07-02] MEDS: PANTOPRAZOLE 40 MG TABLET.DR PO SCH (09:21)
[2023-07-02] MEDS: FERROUS SULFATE (325 MG) 325 MG/TAB TABLET PO SCH (09:21)
[2023-07-02] MEDS: DOCUSATE SODIUM 100 MG CAPSULE PO SCH (09:21)
[2023-07-02] MEDS: IBUPROFEN 400 MG TABLET PO SCH (09:21)
[2023-07-02] MEDS: OLANZAPINE 2.5 MG TABLET PO SCH ×3 (09:21→16:16)
[2023-07-02] MEDS: VALPROIC ACID 250 MG/5 ML UDC PO SCH ×2 (09:21→21:35)
[2023-07-02] MEDS: FOLIC ACID 1 MG TABLET PO SCH (09:22)
[2023-07-02] MEDS: CALCIUM CARBONATE (1250) 500 MG TABLET PO SCH (09:22)
[2023-07-02] MEDS: ASCORBIC ACID 500 MG TABLET PO SCH (09:22)
[2023-07-02] MEDS: MEGESTROL ACETATE 40 MG TABLET PO SCH ×2 (09:23→16:16)
[2023-07-02 13:00] VITALS: BP 112/65; TEMP 97.8; O2SAT 96
[2023-07-02] MEDS: VITAMINS A AND D 56.7 GM TUBE TP SCH (14:04)
[2023-07-02 16:00] VITALS: BP 100/52; TEMP 97.7; O2SAT 98
[2023-07-02] MEDS: IBUPROFEN 400 MG TABLET PO PRN (16:16)
[2023-07-02] MEDS: PROSOURCE / PROSTAT (PYXIS) 30 ML UDC PO SCH (17:58)
[2023-07-02] MEDS: ASPIRIN 81 MG TAB.CHEW PO SCH (17:59)
[2023-07-02] MEDS: CHOLECALCIFEROL 1,000 UNIT TABLET (VIT D3) PO SCH (17:59)
[2023-07-02] MEDS: POLYVINYL ALCOHOL 15 ML BOTTLE EACHEYE SCH (18:03)
[2023-07-02] MEDS: IV NS 0.9% 1,000 ML IV PRN (18:38)
[2023-07-02 20:00] VITALS: BP 125/63; TEMP 98.2; O2SAT 96
[2023-07-02] MEDS: MIRTAZAPINE 15 MG TABLET PO SCH (21:35)
[2023-07-02] MEDS: ENOXAPARIN SODIUM 40 MG/0.4 ML DISP.SYRIN SQ SCH (21:35)
[2023-07-02] MEDS: TRAZODONE 50 MG TABLET PO SCH (21:36)
[2023-07-03] VITALS: BP 131/70; O2SAT 99
[2023-07-03 04:00] VITALS: BP 145/70; O2SAT 100
[2023-07-03] MEDS: METOPROLOL TARTRATE 25 MG TABLET PO SCH ×3 (05:07→21:00)
[2023-07-03] MEDS: PANTOPRAZOLE 40 MG TABLET.DR PO SCH (07:29)
[2023-07-03 08:00] VITALS: BP 144/69; TEMP 97.7; O2SAT 100
[2023-07-03 08:11] LABS: BASOPHILS % (AUTO) 0.7 % (0.0-2.0); EOSINOPHILS # (AUTO) 0.3 K/uL (0.0-0.7); EOSINOPHILS % (AUTO) 4.4 % (0.0-6.0); HEMATOCRIT 39 % (33-45); HEMOGLOBIN 12.5 g/dL (11.5-14.8); LYMPHOCYTES # (AUTO) 1.7 K/uL (0.8-4.8); LYMPHOCYTES % (AUTO) 28.6 % (20.0-44.0); MEAN CORPUSCULAR HEMOGLOBIN 30 PG (26.0-33.0); MEAN CORPUSCULAR HGB CONC 32 g/dl (31.0-36.0); MEAN CORPUSCULAR VOLUME 95 fL (82-100); MONOCYTES # (AUTO) 0.9 K/uL (0.1-1.30); MONOCYTES % (AUTO) 14.2 % (2.0-12.0); NEUTROPHILS # (AUTO) 3.2 K/uL (1.8-8.9); NEUTROPHILS % (AUTO) 52.1 % (43.0-81.0); PLATELET COUNT (AUTO) 292 K/uL (150-450); RED BLOOD CELL COUNT(AUTO) 4.13 MIL/uL (4.0-5.2); RED CELL DISTRIBUTION WIDTH 13.5 % (11.5-15.0); WHITE BLOOD COUNT (AUTO) 6.1 K/uL (4.3-11.0)
[2023-07-03] MEDS: VALPROIC ACID 250 MG/5 ML UDC PO SCH ×2 (08:13→21:36)
[2023-07-03] MEDS: CALCIUM CARBONATE (1250) 500 MG TABLET PO SCH (08:14)
[2023-07-03] MEDS: OLANZAPINE 2.5 MG TABLET PO SCH ×3 (08:14→16:10)
[2023-07-03] MEDS: DOCUSATE SODIUM 100 MG CAPSULE PO SCH (08:14)
[2023-07-03] MEDS: FOLIC ACID 1 MG TABLET PO SCH (08:14)
[2023-07-03] MEDS: MEGESTROL ACETATE 40 MG TABLET PO SCH (08:14)
[2023-07-03] MEDS: FERROUS SULFATE (325 MG) 325 MG/TAB TABLET PO SCH (08:15)
[2023-07-03] MEDS: IBUPROFEN 400 MG TABLET PO SCH (08:15)
[2023-07-03] MEDS: ASCORBIC ACID 500 MG TABLET PO SCH (08:15)
[2023-07-03] MEDS: VITAMINS A AND D 56.7 GM TUBE TP SCH (08:17)
[2023-07-03 08:29] LABS: CALCIUM, SERUM 8.7 mg/dL (8.5-10.1); CREATININE 0.4 mg/dL (0.6-1.3); MAGNESIUM 2.1 mg/dL (1.8-2.4); PHOSPHORUS 3.1 mg/dL (2.5-4.9)
[2023-07-03 12:00] VITALS: BP 115/75; TEMP 98.4; O2SAT 100
[2023-07-03] MEDS ORDERED: MEGESTROL ACETATE SUSP 400 MG/10 ML UDC PO SCH (14:00)
[2023-07-03] MEDS: MEGESTROL ACETATE SUSP 400 MG/10 ML UDC PO SCH (14:18)
[2023-07-03 16:00] VITALS: BP 117/69; TEMP 98.4; O2SAT 98
[2023-07-03] MEDS: IBUPROFEN 400 MG TABLET PO PRN (16:10)
[2023-07-03] MEDS: ASPIRIN 81 MG TAB.CHEW PO SCH (17:06)
[2023-07-03] MEDS: CHOLECALCIFEROL 1,000 UNIT TABLET (VIT D3) PO SCH (17:06)
[2023-07-03] MEDS: POLYVINYL ALCOHOL 15 ML BOTTLE EACHEYE SCH (17:06)
[2023-07-03] MEDS: PROSOURCE / PROSTAT (PYXIS) 30 ML UDC PO SCH (17:06)
[2023-07-03] MEDS: IV NS 0.9% 1,000 ML IV PRN (18:19)
[2023-07-03 19:00] VITALS: BP 93/66; TEMP 98; O2SAT 96
[2023-07-03] MEDS: ENOXAPARIN SODIUM 40 MG/0.4 ML DISP.SYRIN SQ SCH (21:36)
[2023-07-03] MEDS: MIRTAZAPINE 15 MG TABLET PO SCH (21:36)
[2023-07-03] MEDS: TRAZODONE 50 MG TABLET PO SCH (21:36)
[2023-07-04] MEDS: IBUPROFEN 400 MG TABLET PO PRN ×2 (03:02→16:28)
[2023-07-04] MEDS: METOPROLOL TARTRATE 25 MG TABLET PO SCH ×2 (04:38→13:19)
[2023-07-04 06:27] LABS: CALCIUM, SERUM 8.5 mg/dL (8.5-10.1); CREATININE 0.4 mg/dL (0.6-1.3); PHOSPHORUS 3.1 mg/dL (2.5-4.9); POTASSIUM 4.2 mmol/L (3.5-5.1)
[2023-07-04 07:18] LABS: BASOPHILS % (AUTO) 0.7 % (0.0-2.0); EOSINOPHILS # (AUTO) 0.1 K/uL (0.0-0.7); EOSINOPHILS % (AUTO) 2.4 % (0.0-6.0); HEMATOCRIT 37 % (33-45); HEMOGLOBIN 12.1 g/dL (11.5-14.8); LYMPHOCYTES % (AUTO) 35.4 % (20.0-44.0); MEAN CORPUSCULAR HEMOGLOBIN 31 PG (26.0-33.0); MEAN CORPUSCULAR HGB CONC 33 g/dl (31.0-36.0); MEAN CORPUSCULAR VOLUME 93 fL (82-100); MONOCYTES % (AUTO) 16.7 % (2.0-12.0); NEUTROPHILS # (AUTO) 2.6 K/uL (1.8-8.9); NEUTROPHILS % (AUTO) 44.8 % (43.0-81.0); PLATELET COUNT (AUTO) 290 K/uL (150-450); RED BLOOD CELL COUNT(AUTO) 3.95 MIL/uL (4.0-5.2); WHITE BLOOD COUNT (AUTO) 5.7 K/uL (4.3-11.0)
[2023-07-04 08:00] VITALS: BP 131/70; TEMP 97.8; O2SAT 98
[2023-07-04] MEDS: PANTOPRAZOLE 40 MG TABLET.DR PO SCH (08:51)
[2023-07-04] MEDS: FERROUS SULFATE (325 MG) 325 MG/TAB TABLET PO SCH (08:53)
[2023-07-04] MEDS: MEGESTROL ACETATE SUSP 400 MG/10 ML UDC PO SCH (08:53)
[2023-07-04] MEDS: FOLIC ACID 1 MG TABLET PO SCH (08:53)
[2023-07-04] MEDS: VALPROIC ACID 250 MG/5 ML UDC PO SCH (08:53)
[2023-07-04] MEDS: OLANZAPINE 2.5 MG TABLET PO SCH ×3 (08:53→16:26)
[2023-07-04] MEDS: IBUPROFEN 400 MG TABLET PO SCH (08:54)
[2023-07-04] MEDS: DOCUSATE SODIUM 100 MG CAPSULE PO SCH (08:59)
[2023-07-04] MEDS: CALCIUM CARBONATE (1250) 500 MG TABLET PO SCH (08:59)
[2023-07-04] MEDS: ASCORBIC ACID 500 MG TABLET PO SCH (08:59)
[2023-07-04] MEDS: VITAMINS A AND D 56.7 GM TUBE TP SCH (09:00)
[2023-07-04 13:19] VITALS: BP 120/71
[2023-07-04] MEDS ORDERED: MEGE400O5 PO (14:20)
== END 2023-07-04 18:00 | DRG 914 ==
LOC: ER 13:50 → MED 17:44 → TELE 18:23 → MED 07-03 10:12
PROVIDERS: ADMIT Student in an Organized Health Care Education/Training Program; ATTEND Student in an Organized Health Care Education/Training Program
DX: S09.90XA Unspecified injury of head, initial encounter (principal); E44.0 Moderate protein-calorie malnutrition; J90 Pleural effusion, not elsewhere classified; J96.11 Chronic respiratory failure with hypoxia; E87.1 Hypo-osmolality and hyponatremia; G93.49 Other encephalopathy; M48.54XA Collapsed vertebra, not elsewhere classified, thoracic region, initial encounter for fracture; M48.02 Spinal stenosis, cervical region; E86.0 Dehydration; W06.XXXA Fall from bed, initial encounter; D64.9 Anemia, unspecified; E78.5 Hyperlipidemia, unspecified; F20.9 Schizophrenia, unspecified; F31.9 Bipolar disorder, unspecified; G40.909 Epilepsy, unspecified, not intractable, without status epilepticus; I10 Essential (primary) hypertension; K21.9 Gastro-esophageal reflux disease without esophagitis; Z86.73 Personal history of transient ischemic attack (TIA), and cerebral infarction without residual deficits; M62.81 Muscle weakness (generalized); Z68.22 Body mass index [BMI] 22.0-22.9, adult; Z88.2 Allergy status to sulfonamides; Z85.01 Personal history of malignant neoplasm of esophagus; Z79.82 Long term (current) use of aspirin; M25.562 Pain in left knee; M79.672 Pain in left foot; K44.9 Diaphragmatic hernia without obstruction or gangrene; M19.90 Unspecified osteoarthritis, unspecified site; N20.0 Calculus of kidney; Y93.9 Activity, unspecified; Y92.129 Unspecified place in nursing home as the place of occurrence of the external cause; K59.00 Constipation, unspecified; K80.20 Calculus of gallbladder without cholecystitis without obstruction
CPT/HCPCS: 36415; 70450-TC; 70486-TC; 71045-TC; 71250-TC; 72125-TC; 73030-TC; 73564-TC; 73630-TC; 80048-TC; 80076-TC; 83735-TC; 84100-TC; 84439-TC; 84443-TC; 84484-TC; 85025-TC; 85730-TC; 87081-TC; 93307-TC; 97110-TC; 97112-TC; 97530-TC; A4223; G0378; J1650; J7030

== ENCOUNTER 2024-08-14 20:56 | Inpatient (IN) | payer MEDICARE, OTHER ==
[~2024-08-14] VITALS: Ht 172.7 cm; Wt 60.3 kg
[~2024-08-14 20:56] MED LIST changes: +ALLA266C2 TP; -AMOX250C PO; +CARB15DR EACHEYE; -DIVA250T4 PO; -DIVA500T2 PO; +FERR325T23 PO; +FOLI0.8T3 PO; -LEVO250T59 PO; +MEGE400O5 PO; +MEGE40TA5 PO; -MULT-447 PO; +OLAN2.5T3 PO; +OMEP20CA15 PO; -PANT40TA2 PO; +PETR113O TP; -RISP0.2515 PO; -SIMV10TA98 PO; -TRAZ-182 PO; +VALP250S4 PO
[2024-08-14 21:08] VITALS: O2SAT 95
[2024-08-14 21:58] LABS: BASOPHILS % (AUTO) 0.2 % (0.0-2.0); EOSINOPHILS % (AUTO) 0.2 % (0.0-6.0); HEMATOCRIT 34 % (33-45); HEMOGLOBIN 11.8 g/dL (11.5-14.8); LYMPHOCYTES # (AUTO) 0.6 K/uL (0.8-4.8); LYMPHOCYTES % (AUTO) 7.6 % (20.0-44.0); MEAN CORPUSCULAR HEMOGLOBIN 30 PG (26.0-33.0); MEAN CORPUSCULAR HGB CONC 35 g/dl (31.0-36.0); MEAN CORPUSCULAR VOLUME 88 fL (82-100); MONOCYTES # (AUTO) 1.2 K/uL (0.1-1.30); MONOCYTES % (AUTO) 14.2 % (2.0-12.0); NEUTROPHILS # (AUTO) 6.5 K/uL (1.8-8.9); NEUTROPHILS % (AUTO) 77.8 % (43.0-81.0); PLATELET COUNT (AUTO) 237 K/uL (150-450); RED CELL DISTRIBUTION WIDTH 14.4 % (11.5-15.0); WHITE BLOOD COUNT (AUTO) 8.3 K/uL (4.3-11.0)
[2024-08-14] MEDS: IV NS 0.9% 500 ML BAG IV ONE (21:59)
[2024-08-14 22:08] LABS: CALCIUM, SERUM 8.6 mg/dL (8.5-10.1); CARBON DIOXIDE 31 mmol/L (21-32); CHLORIDE 93 mmol/L (98-107); CREATININE 0.3 mg/dL (0.6-1.3); GLUCOSE 99 mg/dL (74-106); POTASSIUM 3.2 mmol/L (3.5-5.1); SODIUM SERUM 130 mmol/L (136-145); UREA NITROGEN, BLOOD 15 mg/dL (7-18)
[2024-08-14 22:10] LABS: INR 1.08 (0.91-1.10); PROTHROMBIN TIME 11.4 SECS (9.2-11.1)
[2024-08-14 22:11] LABS: SERUM AMMONIA 21 umol/L (11-32)
[2024-08-14 22:14] LABS: ALANINE AMINOTRANSFERASE 208 U/L (12-78); ALBUMIN 2.7 g/dL (3.4-5.0); ALKALINE PHOSPHATASE 235 U/L (46-116); ASPARTATE AMINOTRANSFERASE 75 U/L (15-37); BILIRUBIN,DIRECT 0.4 mg/dL (0.0-0.2); BILIRUBIN,TOTAL 0.8 mg/dL (0.2-1.0); LIPASE 14 U/L (16-77); TOTAL PROTEIN, SERUM 6.5 g/dL (6.4-8.2)
[2024-08-14] MEDS ORDERED: CT SWABBABLE VALVE TRANS SET 1 EA INFUS.SET MC ONE (23:01)
[2024-08-14] MEDS ORDERED: IOHEXOL-300 100 ML VIAL IV ONE (23:01)
[2024-08-14] MEDS ORDERED: IV NS 0.9% 250 ML IV ONE (23:01)
[2024-08-14 23:13] LABS: APPEARANCE,URINE SLIGHTLY CLOUDY (CLEAR); BILIRUBIN,URINE 1+ (NEGATIVE); BLOOD, URINE 3+ Ery/uL (NEGATIVE); COLOR,URINE YELLOW (YELLOW); KETONES,URINE 1+ mg/dL (NEGATIVE); LEUKOCYTE ESTERASE ,URINE NEGATIVE (NEGATIVE); NITRITE, URINE NEGATIVE (NEGATIVE); PROTEIN,URINE TRACE mg/dl (NEGATIVE); UGLUCOSE NEGATIVE (NEGATIVE)
[2024-08-14 23:30] LABS: ADD URINE CULTURE YES; BACTERIA,URINE Many /HPF (None Seen); WBC,URINE 0-2 /HPF (0-3)
[2024-08-15] MEDS ORDERED: BISACODYL SUPP (10 MG) 10 MG/SUPP.RECT SUPP.RECT RC PRN (01:30)
[2024-08-15] MEDS ORDERED: ACETAMINOPHEN 325 MG TABLET PO PRN (01:30)
[2024-08-15] MEDS ORDERED: MAGNESIUM HYDROXIDE 30 ML UDC PO PRN ×2 (01:30)
[2024-08-15] MEDS ORDERED: NA PHOS,M-B/NA PHOS,DI-BA 1 EA ENEMA RC PRN (01:30)
[2024-08-15] MEDS ORDERED: MAG HYDROX/AL HYDROX/SIMETH 30 ML UDC PO PRN (01:30)
[2024-08-15] MEDS ORDERED: ONDANSETRON HCL/PF 4 MG/2 ML VIAL IVP PRN (01:30)
[2024-08-15] MEDS ORDERED: ALBUTEROL FS 2.5 MG/3 ML VIAL.NEB NEB PRN (02:00)
[2024-08-15] MEDS: POTASSIUM CL. PREMIX PERIPHER. 50 ML IV SCH (02:28)
[2024-08-15] MEDS: METOPROLOL TARTRATE 25 MG TABLET PO SCH (05:18)
[2024-08-15] MEDS: METHOCARBAMOL (750MG) 750 MG TABLET PO SCH (05:18)
[2024-08-15 06:29] LABS: BASOPHILS % (AUTO) 0.2 % (0.0-2.0); EOSINOPHILS % (AUTO) 0.3 % (0.0-6.0); HEMATOCRIT 37 % (33-45); HEMOGLOBIN 12.3 g/dL (11.5-14.8); LYMPHOCYTES # (AUTO) 0.7 K/uL (0.8-4.8); LYMPHOCYTES % (AUTO) 9.3 % (20.0-44.0); MEAN CORPUSCULAR HEMOGLOBIN 30 PG (26.0-33.0); MEAN CORPUSCULAR HGB CONC 34 g/dl (31.0-36.0); MEAN CORPUSCULAR VOLUME 88 fL (82-100); MONOCYTES % (AUTO) 14.2 % (2.0-12.0); NEUTROPHILS # (AUTO) 5.5 K/uL (1.8-8.9); PLATELET COUNT (AUTO) 227 K/uL (150-450); RED BLOOD CELL COUNT(AUTO) 4.13 MIL/uL (4.0-5.2); RED CELL DISTRIBUTION WIDTH 14.5 % (11.5-15.0); WHITE BLOOD COUNT (AUTO) 7.3 K/uL (4.3-11.0)
[2024-08-15 07:01] LABS: ALANINE AMINOTRANSFERASE 185 U/L (12-78); ALBUMIN 2.7 g/dL (3.4-5.0); ALKALINE PHOSPHATASE 222 U/L (46-116); ASPARTATE AMINOTRANSFERASE 58 U/L (15-37); BILIRUBIN,TOTAL 0.8 mg/dL (0.2-1.0); CALCIUM, SERUM 8.6 mg/dL (8.5-10.1); CARBON DIOXIDE 29 mmol/L (21-32); CHLORIDE 95 mmol/L (98-107); CREATININE 0.3 mg/dL (0.6-1.3); GLUCOSE 77 mg/dL (74-106); MAGNESIUM 2.1 mg/dL (1.8-2.4); POTASSIUM 3.7 mmol/L (3.5-5.1); SODIUM SERUM 133 mmol/L (136-145); TOTAL PROTEIN, SERUM 6.7 g/dL (6.4-8.2); UREA NITROGEN, BLOOD 12 mg/dL (7-18)
[2024-08-15 07:12] VITALS: BP 129/71; TEMP 97.3; O2SAT 98
[2024-08-15] MEDS ORDERED: OMEPRAZOLE 20 MG CAPSULE.DR PO SCH (07:30)
[2024-08-15 08:00] VITALS: BP 125/58; TEMP 98.6; O2SAT 94
[2024-08-15] MEDS ORDERED: Medication Not On Formulary EA (Cranberry Extract (Cranberry) 850 MG) PO SCH (09:00)
[2024-08-15] MEDS: OLANZAPINE 2.5 MG TABLET PO SCH (09:21)
[2024-08-15] MEDS: DOCUSATE SODIUM 100 MG CAPSULE PO SCH (09:21)
[2024-08-15] MEDS: ASCORBIC ACID 500 MG TABLET PO SCH (09:21)
[2024-08-15] MEDS: FERROUS SULFATE (325 MG) 325 MG/TAB TABLET PO SCH (09:22)
[2024-08-15] MEDS: MEGESTROL ACETATE SUSP 400 MG/10 ML UDC PO SCH (09:22)
[2024-08-15] MEDS: VALPROIC ACID 250 MG/5 ML UDC PO SCH (09:22)
[2024-08-15] MEDS: FOLIC ACID 1 MG TABLET PO SCH (09:22)
[2024-08-15] MEDS: FUROSEMIDE 20 MG TABLET PO SCH (09:22)
[2024-08-15] MEDS: CALCIUM CARBONATE (1250) 500 MG TABLET PO SCH (09:22)
[2024-08-15] MEDS ORDERED: CYCL30DR EACHEYE (09:23)
[2024-08-15] MEDS ORDERED: CRAN300T PO (09:23)
[2024-08-15] MEDS ORDERED: TRAZ-182 PO (09:23)
[2024-08-15] MEDS: Z GUARD REMEDY 2 OZ OINT TP SCH (09:25)
[2024-08-15] MEDS: PANTOPRAZOLE 40 MG VIAL IV SCH (09:36)
[2024-08-15 16:00] VITALS: BP 136/69; TEMP 98.1; O2SAT 94
[2024-08-15] MEDS: CHOLECALCIFEROL 1,000 UNIT TABLET (VIT D3) PO SCH (17:50)
[2024-08-15] MEDS: ASPIRIN 81 MG TAB.CHEW PO SCH (17:50)
[2024-08-15] MEDS: POLYVINYL ALCOHOL 15 ML BOTTLE EACHEYE SCH (17:50)
[2024-08-15] MEDS: PROSOURCE / PROSTAT (PYXIS) 30 ML UDC PO SCH (18:18)
[2024-08-15 20:00] VITALS: BP 114/58; TEMP 98.4; O2SAT 95
[2024-08-15] MEDS: MIRTAZAPINE 15 MG TABLET PO SCH (21:24)
[2024-08-16 06:43] LABS: BASOPHILS % (AUTO) 0.1 % (0.0-2.0); EOSINOPHILS % (AUTO) 0.2 % (0.0-6.0); HEMATOCRIT 35 % (33-45); HEMOGLOBIN 11.9 g/dL (11.5-14.8); LYMPHOCYTES # (AUTO) 0.9 K/uL (0.8-4.8); LYMPHOCYTES % (AUTO) 14.1 % (20.0-44.0); MEAN CORPUSCULAR HEMOGLOBIN 30 PG (26.0-33.0); MEAN CORPUSCULAR HGB CONC 34 g/dl (31.0-36.0); MEAN CORPUSCULAR VOLUME 88 fL (82-100); MONOCYTES % (AUTO) 16.5 % (2.0-12.0); NEUTROPHILS # (AUTO) 4.2 K/uL (1.8-8.9); NEUTROPHILS % (AUTO) 69.1 % (43.0-81.0); PLATELET COUNT (AUTO) 245 K/uL (150-450); RED BLOOD CELL COUNT(AUTO) 3.98 MIL/uL (4.0-5.2); RED CELL DISTRIBUTION WIDTH 14.4 % (11.5-15.0); WHITE BLOOD COUNT (AUTO) 6.1 K/uL (4.3-11.0)
[2024-08-16 07:08] LABS: ALANINE AMINOTRANSFERASE 113 U/L (12-78); ALBUMIN 2.5 g/dL (3.4-5.0); ALKALINE PHOSPHATASE 175 U/L (46-116); ASPARTATE AMINOTRANSFERASE 24 U/L (15-37); BILIRUBIN,TOTAL 0.6 mg/dL (0.2-1.0); CALCIUM, SERUM 8.8 mg/dL (8.5-10.1); CARBON DIOXIDE 35 mmol/L (21-32); CHLORIDE 97 mmol/L (98-107); CREATININE 0.2 mg/dL (0.6-1.3); GLUCOSE 94 mg/dL (74-106); MAGNESIUM 1.8 mg/dL (1.8-2.4); PHOSPHORUS 2.5 mg/dL (2.5-4.9); POTASSIUM 3.3 mmol/L (3.5-5.1); SODIUM SERUM 134 mmol/L (136-145); TOTAL PROTEIN, SERUM 6.4 g/dL (6.4-8.2); UREA NITROGEN, BLOOD 9 mg/dL (7-18)
[2024-08-16 07:21] LABS: URIC ACID 2.8 mg/dL (2.6-7.2)
[2024-08-16 07:30] VITALS: BP 133/66; TEMP 97.9; O2SAT 95
[2024-08-16 07:55] LABS: BASOPHILS % (MANUAL) 0 % (0.0-2.0); EOSINOPHILS % (MANUAL) 1 % (0-4); LYMPHOCYTES % (MANUAL) 15 % (16-48); MONOCYTES % (MANUAL) 18 % (0-11.0); NEUTROPHILS % (MANUAL) 66 (42-76); PLATELET ESTIMATE ADEQUATE
[2024-08-16] MEDS: PANTOPRAZOLE 40 MG TABLET.DR PO SCH (08:21)
[2024-08-16] MEDS: POTASSIUM CHLORIDE 20 MEQ TAB.PRT.SR PO SCH (11:19)
[2024-08-16] MEDS: ENSURE ENLIVE 237 ML LIQUID (VANILLA) PO SCH (14:02)
[2024-08-16 20:00] VITALS: BP 130/66; TEMP 97.9; O2SAT 96
[2024-08-17 07:00] VITALS: BP 149/77; TEMP 98.2; O2SAT 99
[2024-08-17 11:01] LABS: BASOPHILS % (AUTO) 0.4 % (0.0-2.0); EOSINOPHILS % (AUTO) 0.4 % (0.0-6.0); HEMATOCRIT 37 % (33-45); HEMOGLOBIN 12.4 g/dL (11.5-14.8); LYMPHOCYTES % (AUTO) 15.4 % (20.0-44.0); MEAN CORPUSCULAR HEMOGLOBIN 30 PG (26.0-33.0); MEAN CORPUSCULAR HGB CONC 34 g/dl (31.0-36.0); MEAN CORPUSCULAR VOLUME 88 fL (82-100); MONOCYTES # (AUTO) 1.3 K/uL (0.1-1.30); MONOCYTES % (AUTO) 20.3 % (2.0-12.0); NEUTROPHILS % (AUTO) 63.5 % (43.0-81.0); PLATELET COUNT (AUTO) 287 K/uL (150-450); RED CELL DISTRIBUTION WIDTH 14.6 % (11.5-15.0); WHITE BLOOD COUNT (AUTO) 6.3 K/uL (4.3-11.0)
[2024-08-17 11:36] LABS: ALANINE AMINOTRANSFERASE 75 U/L (12-78); ALBUMIN 2.7 g/dL (3.4-5.0); ALKALINE PHOSPHATASE 158 U/L (46-116); ASPARTATE AMINOTRANSFERASE 14 U/L (15-37); BILIRUBIN,TOTAL 0.5 mg/dL (0.2-1.0); CARBON DIOXIDE 33 mmol/L (21-32); CHLORIDE 98 mmol/L (98-107); CREATININE 0.3 mg/dL (0.6-1.3); GLUCOSE 127 mg/dL (74-106); POTASSIUM 3.5 mmol/L (3.5-5.1); SODIUM SERUM 135 mmol/L (136-145); TOTAL PROTEIN, SERUM 6.7 g/dL (6.4-8.2); UREA NITROGEN, BLOOD 10 mg/dL (7-18)
[2024-08-17 16:24] VITALS: BP 110/67; TEMP 98.4; O2SAT 94
[2024-08-17 20:00] VITALS: BP 102/64; TEMP 98.1; O2SAT 93
[2024-08-18 08:00] VITALS: BP 112/69; TEMP 98.6; O2SAT 94
[2024-08-18] MEDS: Z GUARD REMEDY 4 OZ OINT TP PRN (11:26)
[2024-08-18 16:00] VITALS: BP 96/64; TEMP 99.1; O2SAT 96
[2024-08-18] MEDS: IV NS 0.9% 500 ML IV ONE (20:25)
[2024-08-18] MEDS: MIDODRINE HCL (5MG) 5 MG TABLET PO SCH (20:28)
[2024-08-18 20:48] VITALS: BP 92/70
== END 2024-08-18 23:20 | DRG 641 ==
LOC: ER 20:59 → MED 08-15 01:31
DX: R62.7 Adult failure to thrive (principal); E44.0 Moderate protein-calorie malnutrition; E87.1 Hypo-osmolality and hyponatremia; J90 Pleural effusion, not elsewhere classified; G93.49 Other encephalopathy; F03.93 Unspecified dementia, unspecified severity, with mood disturbance; F03.918 Unspecified dementia, unspecified severity, with other behavioral disturbance; N39.0 Urinary tract infection, site not specified; G40.909 Epilepsy, unspecified, not intractable, without status epilepticus; I10 Essential (primary) hypertension; Z20.822 Contact with and (suspected) exposure to COVID-19; G43.909 Migraine, unspecified, not intractable, without status migrainosus; Z86.73 Personal history of transient ischemic attack (TIA), and cerebral infarction without residual deficits; Z86.79 Personal history of other diseases of the circulatory system; Z85.01 Personal history of malignant neoplasm of esophagus; K21.9 Gastro-esophageal reflux disease without esophagitis; R53.1 Weakness; H26.9 Unspecified cataract; Z87.19 Personal history of other diseases of the digestive system; Z88.2 Allergy status to sulfonamides; Z79.899 Other long term (current) drug therapy; Z79.82 Long term (current) use of aspirin; Z88.5 Allergy status to narcotic agent; Z88.8 Allergy status to other drugs, medicaments and biological substances; Z79.51 Long term (current) use of inhaled steroids; K44.9 Diaphragmatic hernia without obstruction or gangrene; F31.9 Bipolar disorder, unspecified; M48.02 Spinal stenosis, cervical region; F20.9 Schizophrenia, unspecified; K22.89 Other specified disease of esophagus; D64.9 Anemia, unspecified; E87.6 Hypokalemia; E78.5 Hyperlipidemia, unspecified; K83.8 Other specified diseases of biliary tract; Z90.49 Acquired absence of other specified parts of digestive tract; Z88.6 Allergy status to analgesic agent; K56.41 Fecal impaction; B96.89 Other specified bacterial agents as the cause of diseases classified elsewhere
CPT/HCPCS: 36415; 71045-TC; 71260-TC; 76705-TC; 80048-TC; 80053-TC; 80076-TC; 81001; 82140-TC; 83690-TC; 83735-TC; 84100-TC; 84443-TC; 84550-TC; 85025-TC; 85730-TC; 87081-TC; 87086-TC; 92526; 92611-TC; A4223; G0378; J2470; J3480; J7040; J7050; Q9967